=== PATIENT | male | born 1980 | race Caucasian/White ===

== ENCOUNTER 2018-06-14 12:45 | Outpatient (CLI) | payer MEDICAID, SELFPAY ==
[2018-06-14 14:10] LABS: ALT 49 U/L (12-78); AST 30 U/L (15-37); Albumin 4.4 g/dL (3.4-5.0); Alkaline Phosphatase 96 U/L (46-116); Anion Gap 12.9 mmol/L (3-11); BUN 15 mg/dL (7-18); Bilirubin, Total 0.6 mg/dL (0.2-1.0); CO2 27.1 mmol/L (21.0-32.0); CREATININE 0.94 mg/dL (0.70-1.30); Chloride 102 mmol/L (98-107); Cholesterol 277 mg/dL (50-200); Glucose 100 mg/dL (70-100); HDL Cholesterol 37 mg/dL (40-60); LDL CHOLESTEROL 180 mg/dL (<100); Potassium 4.5 mmol/L (3.5-5.1); Sodium 142 mmol/L (136-145); Total Protein 7.7 g/dL (6.4-8.2); Triglyceride 500 mg/dL (30-150)
== END 2018-06-14 13:05 ==
PROVIDERS: PCP Nurse Practitioner; Visit Provider Nurse Practitioner
DX: E78.5 Hyperlipidemia, unspecified (principal)
CPT/HCPCS: 36415; 80053; 80061; 83721

== ENCOUNTER 2018-08-07 09:53 | Outpatient (CLI) | payer MEDICAID, SELFPAY ==
[2018-08-07 11:09] LABS: ALT 70 U/L (12-78); AST 49 U/L (15-37); Albumin 4.6 g/dL (3.4-5.0); Alkaline Phosphatase 118 U/L (46-116); Anion Gap 10.9 mmol/L (3-11); BUN 14 mg/dL (7-18); Bilirubin, Total 1.1 mg/dL (0.2-1.0); CO2 30.1 mmol/L (21.0-32.0); CREATININE 1.11 mg/dL (0.70-1.30); Calcium 9.3 mg/dL (8.5-10.1); Chloride 103 mmol/L (98-107); Cholesterol 158 mg/dL (50-200); Glucose 103 mg/dL (70-100); HDL Cholesterol 35 mg/dL (40-60); LDL CHOLESTEROL 100 mg/dL (<100); Potassium 3.9 mmol/L (3.5-5.1); Sodium 144 mmol/L (136-145); Total Protein 7.5 g/dL (6.4-8.2); Triglyceride 171 mg/dL (30-150)
== END 2018-08-07 10:13 ==
PROVIDERS: PCP Nurse Practitioner; Visit Provider Nurse Practitioner
DX: E78.1 Pure hyperglyceridemia (principal); E78.2 Mixed hyperlipidemia
CPT/HCPCS: 36415; 80053; 80061; 83721

== ENCOUNTER 2018-09-25 06:23 | Day surgery (SDC) | payer MEDICAID, SELFPAY ==
[2018-09-25] VITALS (8 sets, daily range): BP systolic 109–142; BP diastolic 62–86; PULSE 70–86; RESP 14–18; TEMP 36.4–36.9; O2SAT 94–100
[2018-09-25] MEDS: Lactated Ringers 1,000 ML 80 ML IV (06:58)
[2018-09-25] MEDS: Oxymetazolone 0.05% SPRAY 15 ML BTL (07:48)
[2018-09-25] MEDS: HYDROmorphone 2 MG/ML VIAL IVP ×3 (09:29→09:54)
[2018-09-25] MEDS: Lactated Ringers 1,000 ML 75 ML IV (09:33)
--- NOTE | 2018-09-25 10:33 | ROE_ITS ---
REPORT OF OPERATIVE PROCEDURE DATE OF PROCEDURE September 25, 2018 PREOPERATIVE DIAGNOSES Chronic nasal obstruction with nasal septal deviation. Inferior turbinate hypertrophy bilaterally. 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 POSTOPERATIVE DIAGNOSES Chronic nasal obstruction with nasal septal deviation. Inferior turbinate hypertrophy bilaterally. 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 PROCEDURES Nasal septal reconstruction. Bilateral internal nasal valve collapse repair with homograft. Submucosal resection of inferior turbinates bilaterally. SURGEON Kenny Watson D.O. ANESTHESIA General and 14 cc of 1% lidocaine with 1:100,000 epinephrine. ESTIMATED BLOOD LOSS 5 cc COMPLICATIONS None. CONDITION The patient tolerated well. INDICATIONS FOR PROCEDURE This is a pleasant 38-year-old male that presents with a history of chronic nasal obstruction. He has had difficulty breathing through his nose for some time refractory to medical management. He has lesli tomical reasons for his obstruction, including collapse of the internal nasal valve bilateral with in spiration. Nasal septal obstruction, as well as inferior turbinate hypertrophy bilaterally. The decis ion made forth to proceed with intranasal surgery. The risks and complications were discussed in [facility]. Consent was placed in the chart. PROCEDURE The patient was brought back to the Operating Suite in stable condition, placed supine on the operati ng table and intubated in a normal fashion. The table was rotated 90 degrees. Timeout was taken to [facility] operation and procedure. 14 cc of 1% lidocaine with 1:100,000 epinephrine was injected in the s ubmucosal surfaces of septal bilaterally. Afrin-soaked pledgets were placed. The patient was preppe d and draped in normal fashion. A Evan's-type incision was made in the left septal mucosa. There w as a large inferior spur in the left side. This was isolated. Mucosa was elevated in a sub perichondr al flap. Crossover incision through the cartilage was made with a septal knife. Similar sub perichond ral flap was elevated on the right side. Obstructive cartilage was removed and saved. The inferior se ptal spur was meticulously isolated. This was also extracted out of the maxillary crest. The septum w as midline. The septal cartilage was sculpted, bisected and shaved. Intercartilaginous incisions were made in the lateral aspects of the nose bilaterally with a blunt pocket created toward the piriform aperture. The homograph cartilage grafts were placed with the convexity laterally. These were sutured in place with #4-0 Chromic suture. The sub perichondral septal flaps were sutured again back togethe r with #4-0 Plain gut suture. Next, a #15-blade scalpel was used to incise the anterior face of the inferior turbinate. A 2.0-mm in ferior submucosal resection blade was used to remove the obstructive cartilage and soft tissue, follo wed by outfracture from Maria M elevator. Again, Chromic was used to close the stab incisions. James sp lints were placed with Bactroban, sutured to the columella. There were no complications. The patient was table to PACU.
== END 2018-09-25 12:05 | disposition home or self-care (01) ==
PROVIDERS: PCP Nurse Practitioner; Visit Provider Otolaryngology Otolaryngology/Facial Plastic Surgery
PROC: (CPT 30465; principal; 2018-09-25 07:30)
DX: J34.89 Other specified disorders of nose and nasal sinuses (principal); J34.3 Hypertrophy of nasal turbinates; J34.2 Deviated nasal septum
CPT/HCPCS: 30465; 30520; 30140; J1100; J1200; J1885; J2250; J2405; J3010

== ENCOUNTER 2018-10-10 01:26 | Outpatient (CLI) | payer MEDICAID, SELFPAY ==
--- NOTE | 2018-10-10 10:27 | DI.MRI_ITS ---
SYMPTOMS/DIAGNOSIS: WORSENING PAIN, HISTORY LUMBAR DISC HERNIATION MRI OF THE LUMBAR SPINE: Comparison is made with [id number]. T 1, T 2 and STIR sagittal, T 1 coronal and T 1 and T 2 axial sequences were performed. The T 11 - 12 through L 3 - 4 discs appear intact. There is mild concentric bulging of the L 4 - 5 disc. There is a small left foraminal disc herniation which appears to impinge on the nerve root. This is not changed from the previous exam. At L 5 - S 1, there is now a small focal right paracentral disc protrusion. This may contact the right S 1 nerve root. There is no central canal stenosis or neural foraminal narrowing. IMPRESSION: Stable appearance of right foraminal disc herniation at L 4 - 5. New focal right paracentral disc protrusion at L 5 - S 1.
== END 2018-10-10 01:46 ==
PROVIDERS: PCP Nurse Practitioner; Visit Provider Nurse Practitioner
DX: M54.5 Low back pain (principal); M51.27 Other intervertebral disc displacement, lumbosacral region
CPT/HCPCS: 72148

== ENCOUNTER 2018-11-28 11:27 | Emergency (ER) | payer MEDICAID, SELFPAY ==
[2018-11-28 11:32] VITALS: BP 159/87; PULSE 91; RESP 18; TEMP 36.5; O2SAT 97
--- NOTE | 2018-11-28 12:44 | W.ED.GENAD ---
Discharge Plan Disposition Patient Disposition: HOME Condition: Good Discharge Details Chief Complaint: DentalOral Clinical Impression: Dental infection, Lymphadenopathy Primary Care Provider: Lara Sy ED Provider: Ian Pappas Meds and New Rx's Prescriptions: New ibuprofen 600 mg tablet 600 mg PO TID-QID PRN (Reason: pain) Qty: 20 RF: 0 Continued atorvastatin 40 mg tablet 40 mg PO DAILY Qty: 90 RF: 3 escitalopram oxalate 20 mg tablet 20 mg PO DAILY Qty: 30 RF: 12 albuterol sulfate [ProAir HFA] 90 mcg/actuation HFA aerosol inhaler 1 - 2 puff Inhalation Q4H PRN PRN (Reason: shortness of breath or wheezing) Qty: 18 RF: 12 clindamycin HCl 300 mg capsule 300 mg PO TID Qty: 30 RF: 0 acetaminophen-codeine 300-30 mg tablet 1 tab PO TID PRN (Reason: pain) Qty: 9 RF: 0 bupropion HCl 300 mg tablet extended release 24 hr 300 mg PO QAM Qty: 30 RF: 2 budesonide 32 mcg/actuation aerosol THOMAS BID RF: 0 Discharge Instructions Instructions: Dental Abscess (ED) Additional Instructions: Continue the antibiotic as prescribed. Use ibuprofen to help with the inflammation and swelling of the lymph nodes. Follow-up with a dentist tomorrow as planned. Return to ED for high fever, increasing facial swelling, difficulty breathing, inability to swallow. Medical Decision Making Patient with tender submandibular lymph nodes likely related to the infection. There is no abscess. He is on clindamycin and sees the dentist tomorrow. He has no erythema or cellulitis. He was prescribed pain medicine along with the antibiotic. I have instructed him to use ibuprofen for anti-inflammatory effects. Return to ED for fever, increased facial pain/swelling, difficulty breathing, inability to swallow. HPI General Mode of arrival: ambulatory. Date/Time Provider Initiated Documentation: 11/28/18 12:44. Limitations to Documentation: no limitations. Information obtained by: patient. HPI Narrative: Patient presents to ED with swelling under his left mandible area that is painful. He is on antibiotic for dental infection that was started recently. He has had about 5 doses. He has an appointment to see the dentist tomorrow. He has no fever. He has had no generalized facial swelling. He was concerned with this localized painful swelling and came in for evaluation. He is not having difficulty breathing. He is not having difficulty swallowing although it hurts when he initiates swallowing because it makes the firm mass move. Related Data Home Medications Medication Instructions Recorded Confirmed atorvastatin 40 mg tablet 40 mg PO DAILY #90 tab 06/15/18 11/28/18 escitalopram 20 mg tablet 20 mg PO DAILY #30 tab 09/04/18 11/28/18 albuterol sulfate HFA 90 1 - 2 puff INHALATION Q4H PRN PRN 10/17/18 11/28/18 mcg/actuation aerosol inhaler #18 gm budesonide 32 mcg/actuation nasal mcg THOMAS BID 11/17/18 11/27/18 spray,aerosol acetaminophen 300 mg-codeine 30 mg 1 tab PO TID PRN #9 tab 11/27/18 11/28/18 tablet bupropion HCl XL 300 mg 24 hr 300 mg PO QAM #30 tab 11/27/18 11/28/18 tablet, extended release clindamycin HCl 300 mg capsule 300 mg PO TID #30 cap 11/27/18 11/28/18 ibuprofen 600 mg PO TID-QID PRN #20 tab 11/28/18 Previous Rx's Medication Instructions Recorded atorvastatin 40 mg tablet 40 mg PO DAILY #90 tab 06/15/18 escitalopram 20 mg tablet 20 mg PO DAILY #30 tab 09/04/18 albuterol sulfate HFA 90 1 - 2 puff INHALATION Q4H PRN PRN 10/17/18 mcg/actuation aerosol inhaler #18 gm acetaminophen 300 mg-codeine 30 mg 1 tab PO TID PRN #9 tab 11/27/18 tablet bupropion HCl XL 300 mg 24 hr 300 mg PO QAM #30 tab 11/27/18 tablet, extended release clindamycin HCl 300 mg capsule 300 mg PO TID #30 cap 11/27/18 ibuprofen 600 mg PO TID-QID PRN #20 tab 11/28/18 Allergies Allergy/AdvReac Type Severity Reaction Status Date / Time Penicillins Allergy Severe Hives Verified 11/27/18 13:43 Sulfa (Sulfonamide Allergy Mild Hives Verified 11/27/18 13:43 Antibiotics) methadone AdvReac Intermediate urinary Verified 11/27/18 13:43 retention General Stated Complaint: DentalOral OMERO: 4 Review of Systems Constitutional Denies chills, Denies fever(s) and Denies headache(s) ENT Reports dental pain, Denies headache(s), Denies sore throat, Denies throat swelling and Denies tongue swelling Integumentary/Breasts Denies erythema Neurologic Denies headache(s) Allergic/Immunologic Denies throat swelling and Denies tongue swelling [facility] Medical History GARY (generalized anxiety disorder) (Chronic) Major depression (Chronic) Herniation of lumbar intervertebral disc with radiculopathy (Acute) Asthma (Chronic) Hyperlipidemia, unspecified (Chronic 09/03/15) Surgical History Fx left forearm, staph, grafting (~2007) Social History Smoking/Tobacco Use Status: Never Alcohol Intake: never Drug use: Occasionally Substance use type: does not use Adopted: No Household members: family Housing: house Number of Children: 1 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: male What type of physical activity do you participate in: walking Duration: 15-30 minutes/day Frequency: 3-4 times per week Seatbelt use: always Helmet use: Yes Drive intox or ride w/intox commercial front load driver: No Water heater temp set <120 deg: Yes Working smoke detector in home: Yes Fire extinguisher in home: Yes Carbon monox detector in home: Yes Firearms in home: No Do you feel safe at home: Yes Do you feel safe in your relationship?: Yes Exam Const General: cooperative, comfortable and no acute distress Orientation: alert and oriented x3 HENMT Head: normal to inspection, normocephalic and atraumatic Face and sinus: no erythema, no fluctuance and tenderness on the left submandibular (pea size firm tender nodule) Mouth: tongue normal, no drooling, no trismus and other (No gingival or mucosal abscess) Teeth and gingiva: caries (Left lower posterior molar with severe dental christie with tenderness) and poor dentition Neck Neck: normal visual inspection, full ROM and lymphadenopathy (left submandibular) Course Vital Signs Temperature 97.7 F 11/28/18 11:32 Pulse 91 H 11/28/18 11:32 Respiratory Rate 18 11/28/18 11:32 Blood Pressure 159/87 H 11/28/18 11:32 Pulse Oximetry 97 11/28/18 11:32 Temperature 97.7 F 11/28/18 11:32 Temperature Source Temporal Artery Scan 11/28/18 11:32 Pulse 91 H 11/28/18 11:32 Respiratory Rate 18 11/28/18 11:32 Blood Pressure 159/87 H 11/28/18 11:32 Pulse Oximetry 97 11/28/18 11:32 Oxygen Delivery Method Room Air 11/28/18 11:32 Oxygen Flow Rate 0 11/28/18 11:32 Pain Level 8 11/28/18 11:32 Comment 11/28/18 11:32
--- NOTE | 2018-11-28 12:47 | ED.GENADUL_ITS ---
Discharge Plan Disposition Patient Disposition: HOME Condition: Good Discharge Details Chief Complaint: DentalOral Clinical Impression: Dental infection, Lymphadenopathy Primary Care Provider: Lara Sy ED Provider: Ian Pappas Meds and New Rx's Prescriptions: New ibuprofen 600 mg tablet 600 mg PO TID-QID PRN (Reason: pain) Qty: 20 RF: 0 Continued atorvastatin 40 mg tablet 40 mg PO DAILY Qty: 90 RF: 3 escitalopram oxalate 20 mg tablet 20 mg PO DAILY Qty: 30 RF: 12 albuterol sulfate [ProAir HFA] 90 mcg/actuation HFA aerosol inhaler 1 - 2 puff Inhalation Q4H PRN PRN (Reason: shortness of breath or wheezing) Qty: 18 RF: 12 clindamycin HCl 300 mg capsule 300 mg PO TID Qty: 30 RF: 0 acetaminophen-codeine 300-30 mg tablet 1 tab PO TID PRN (Reason: pain) Qty: 9 RF: 0 bupropion HCl 300 mg tablet extended release 24 hr 300 mg PO QAM Qty: 30 RF: 2 budesonide 32 mcg/actuation aerosol THOMAS BID RF: 0 Discharge Instructions Instructions: Dental Abscess (ED) Additional Instructions: Continue the antibiotic as prescribed. Use ibuprofen to help with the i nflammation and swelling of the lymph nodes. Follow-up with a dentist tomorrow as planned. Return to ED for high fever, increasing facial swelling, difficulty breathing, inability to swallow. Medical Decision Making Patient with tender submandibular lymph nodes likely related to the infection. There is no abscess. He is on clindamycin and sees the dentist tomorrow. He has no erythema or cellulitis. He was prescribed pain medicine along with the antibiotic. I have instructed him to use ibuprofen for anti-inflammatory effects. Return to ED for fever, increased facial pain/swelling, difficulty breathing, inability to swallow. HPI General Mode of arrival: ambulatory . Date/Time Provider Initiated Documentation: 11/28/18 12:44 . Limitations to Documentation: no limitations . Information obtained by: patient . HPI Narrative: Patient presents to ED with swelling under his left mandible area that is painful. He is on antibiotic for dental infection that was started recently. He has had about 5 doses. He has an appointment to see the dentist tomorrow. He has no fever. He has had no generalized facial swelling. He was concerned with this localized painful swelling and came in for evaluation. He is not having difficulty breathing. He is not having difficulty swallowing although it hurts when he initiates swall owing because it makes the firm mass move. Related Data Home Medications Medication Instructions Recorded Confirmed atorvastatin 40 mg tablet 40 mg PO DAILY #90 tab 06/15/18 11/28/18 escitalopram 20 mg tablet 20 mg PO DAILY #30 tab 09/04/18 11/28/18 albuterol sulfate HFA 90 1 - 2 puff INHALATION Q4H PRN PRN 10/17/18 11/28/18 mcg/actuation aerosol inhaler #18 gm budesonide 32 mcg/actuation nasal mcg THOMAS BID 11/17/18 11/27/18 spray,aerosol acetaminophen 300 mg-codeine 30 mg 1 tab PO TID PRN #9 tab 11/27/18 11/28/18 tablet bupropion HCl XL 300 mg 24 hr 300 mg PO QAM #30 tab 11/27/18 11/28/18 tablet, extended release clindamycin HCl 300 mg capsule 300 mg PO TID #30 cap 11/27/18 11/28/18 ibuprofen 600 mg PO TID-QID PRN #20 tab 11/28/18 Previous Rx's Medication Instructions Recorded atorvastatin 40 mg tablet 40 mg PO DAILY #90 tab 06/15/18 escitalopram 20 mg tablet 20 mg PO DAILY #30 tab 09/04/18 albuterol sulfate HFA 90 1 - 2 puff INHALATION Q4H PRN PRN 10/17/18 mcg/actuation aerosol inhaler #18 gm acetaminophen 300 mg-codeine 30 mg 1 tab PO TID PRN #9 tab 11/27/18 tablet bupropion HCl XL 300 mg 24 hr 300 mg PO QAM #30 tab 11/27/18 tablet, extended release clindamycin HCl 300 mg capsule 300 mg PO TID #30 cap 11/27/18 ibuprofen 600 mg PO TID-QID PRN #20 tab 11/28/18 Allergies Allergy/AdvReac Type Severity Reaction Status Date / Time Penicillins Allergy Severe Hives Verified 11/27/18 13:43 Sulfa (Sulfonamide Allergy Mild Hives Verified 11/27/18 13:43 Antibiotics) methadone AdvReac Intermediate urinary Verified 11/27/18 13:43 retention General Stated Complaint: DentalOral OMERO: 4 Review of Systems Constitutional Denies chills, Denies fever(s) and Denies headache(s) ENT Reports dental pain, Denies headache(s), Denies sore throat, Denies throat swelling and Denies tongue swelling Integumentary/Breasts Denies erythema Neurologic Denies headache(s) Allergic/Immunologic Denies throat swelling and Denies tongue swelling PFSH Medical History GARY (generalized anxiety disorder) (Chronic) Major depression (Chronic) Herniation of lumbar intervertebral disc with radiculopathy (Acute) Asthma (Chronic) Hyperlipidemia, unspecified (Chronic 09/03/15) Surgical History Fx left forearm, staph, grafting (~2007) Social History Smoking/Tobacco Use Status: Never Alcohol Intake: never Drug use: Occasionally Substance use type: does not use Adopted: No Household members: family Housing: house Number of Children: 1 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: male What type of physical activity do you participate in: walking Duration: 15-30 minutes/day Frequency: 3-4 times per week Seatbelt use: always Helmet use: Yes Drive intox or ride w/intox cdl b driver: No Water heater temp set <120 deg: Yes Working smoke detector in home: Yes Fire extinguisher in home: Yes Carbon monox detector in home: Yes Firearms in home: No Do you feel safe at home: Yes Do you feel safe in your relationship?: Yes Exam Const General: cooperative, comfortable and no acute distress Orientation: alert and oriented x3 HENMT Head: normal to inspection, normocephalic and atraumatic Face and sinus: no erythema, no fluctuance and tenderness on the left subma ndibular (pea size firm tender nodule) Mouth: tongue normal, no drooling, no trismus and other (No gingival or mucosal abscess) Teeth and gingiva: caries (Left lower posterior molar with severe dental christie with tenderness) and poor dentition Neck Neck: normal visual inspection, full ROM and lymphadenopathy (left submandibular) Course Vital Signs Temperature 97.7 F 11/28/18 11:32 Pulse 91 H 11/28/18 11:32 Respiratory Rate 18 11/28/18 11:32 Blood Pressure 159/87 H 11/28/18 11:32 Pulse Oximetry 97 11/28/18 11:32 Temperature 97.7 F 11/28/18 11:32 Temperature Source Temporal Artery Scan 11/28/18 11:32 Pulse 91 H 11/28/18 11:32 Respiratory Rate 18 11/28/18 11:32 Blood Pressure 159/87 H 11/28/18 11:32 Pulse Oximetry 97 11/28/18 11:32 Oxygen Delivery Method Room Air 11/28/18 11:32 Oxygen Flow Rate 0 11/28/18 11:32 Pain Level 8 11/28/18 11:32 Comment 11/28/18 11:32
[2018-11-28] MEDS: Ibuprofen 600 MG TAB PO (13:00)
== END 2018-11-28 13:03 | disposition home or self-care (01) ==
PROVIDERS: Emergency Provider Emergency Medicine; PCP Nurse Practitioner
DX: K04.7 Periapical abscess without sinus (principal); L04.9 Acute lymphadenitis, unspecified
CPT/HCPCS: 99282

== ENCOUNTER 2018-11-28 17:26 | Emergency (ER) | payer MEDICAID, SELFPAY ==
[2018-11-28 17:34] VITALS: BP 163/84; PULSE 90; RESP 20; TEMP 36.9; O2SAT 96
--- NOTE | 2018-11-28 23:18 | ED.GENADUL_ITS ---
Discharge Plan Disposition Patient Disposition: HOME Condition: Stable Discharge Details Chief Complaint: DentalOral Clinical Impression: Dental infection Primary Care Provider: Lara Sy ED Provider: Cristhian Godwin Home Meds and New Rx's Prescriptions: No Action atorvastatin 40 mg tablet 40 mg PO DAILY Qty: 90 RF: 3 escitalopram oxalate 20 mg tablet 20 mg PO DAILY Qty: 30 RF: 12 albuterol sulfate [ProAir HFA] 90 mcg/actuation HFA aerosol inhaler 1 - 2 puff Inhalation Q4H PRN PRN (Reason: shortness of breath or wheezing) Qty: 18 RF: 12 clindamycin HCl 300 mg capsule 300 mg PO TID Qty: 30 RF: 0 acetaminophen-codeine 300-30 mg tablet 1 tab PO TID PRN (Reason: pain) Qty: 9 RF: 0 bupropion HCl 300 mg tablet extended release 24 hr 300 mg PO QAM Qty: 30 RF: 2 budesonide 32 mcg/actuation aerosol THOMAS BID RF: 0 ibuprofen 600 mg tablet 600 mg PO TID-QID PRN (Reason: pain) Qty: 20 RF: 0 Discharge Instructions Instructions: Dental Abscess (ED) Additional Instructions: 1. Drink plenty of fluids. 2. Continue all medications as prescribed. 3. Ibuprofen 600mg every 6 hours and or acetaminophen 1000mg every 4 hours as needed for pain/fever. 4. Follow up w your dentist as scheduled tomorrow morning. . Return for worsening pain, fever, inabiility to swallow, difficulty breathing. Medical Decision Making 38-year-old gentleman with history of dental caries and progressive left posterior molar pain. Currently on clindamycin and scheduled for outpatient dental follow-up tomorrow morning. Presents with worsening pain and swelling in the submandibular region. Exam and bedside ultrasound diagnostic for left submandibular gland swelling. Discussed findings with patient and recommended continued antibiotics, OTC analgesia, and dental clinic follow-up as scheduled. Pt evaluated immediately prior to discharge with improved symptoms, normal vital signs, and tolerating PO. The patient feels appropriate for discharge home. Discussed clinical/diagnostic findings. Discharged with a clear plan for outpatient follow up. Given usual and customary return instructions prior to discharge. Medical Records Medical records reviewed: Yes I reviewed the patient's medical records. Imaging Data Radiologic Study: Imaging: Ultrasound (Bedside soft tissue ultrasound) My impression: Limited soft tissue bedside Ultrasound. Findings include left submandibular gland hyperplasia.. Images obtained, reviewed, and interpreted independently by myself. Images saved on ultrasound system for review. HPI 38-year-old gent with past medical history which includes chronic anxiety/depression back pain, hyperlipidemia, asthma. Has generalized poor dentition and recently was started on antibiotics for a painful posterior left lower molar. Evaluated here earlier and discharged with plan for outpatient dental follow-up scheduled for tomorrow. Return with worsening submandibular pain and swelling since his discharge. Notes increased pain in the submandibular region with jaw motion and swallowing. However denies significant difficulty swallowing or handling his own secretions. Denies hypopharyngeal or buccal swelling. Has no dyspnea, wheezing, or stridor. He has been compliant with his antibiotics and OTC analgesia. General Date/Time Provider Initiated Documentation: 11/28/18 19:27 . Related Data Home Medications Medication Instructions Recorded Confirmed atorvastatin 40 mg tablet 40 mg PO DAILY #90 tab 06/15/18 11/28/18 escitalopram 20 mg tablet 20 mg PO DAILY #30 tab 09/04/18 11/28/18 albuterol sulfate HFA 90 1 - 2 puff INHALATION Q4H PRN PRN 10/17/18 11/28/18 mcg/actuation aerosol inhaler #18 gm budesonide 32 mcg/actuation nasal mcg THOMAS BID 11/17/18 11/27/18 spray,aerosol acetaminophen 300 mg-codeine 30 mg 1 tab PO TID PRN #9 tab 11/27/18 11/28/18 tablet bupropion HCl XL 300 mg 24 hr 300 mg PO QAM #30 tab 11/27/18 11/28/18 tablet, extended release clindamycin HCl 300 mg capsule 300 mg PO TID #30 cap 11/27/18 11/28/18 ibuprofen 600 mg PO TID-QID PRN #20 tab 11/28/18 Previous Rx's Medication Instructions Recorded atorvastatin 40 mg tablet 40 mg PO DAILY #90 tab 06/15/18 escitalopram 20 mg tablet 20 mg PO DAILY #30 tab 09/04/18 albuterol sulfate HFA 90 1 - 2 puff INHALATION Q4H PRN PRN 10/17/18 mcg/actuation aerosol inhaler #18 gm acetaminophen 300 mg-codeine 30 mg 1 tab PO TID PRN #9 tab 11/27/18 tablet bupropion HCl XL 300 mg 24 hr 300 mg PO QAM #30 tab 11/27/18 tablet, extended release clindamycin HCl 300 mg capsule 300 mg PO TID #30 cap 11/27/18 ibuprofen 600 mg PO TID-QID PRN #20 tab 11/28/18 Allergies Allergy/AdvReac Type Severity Reaction Status Date / Time Penicillins Allergy Severe Hives Verified 11/27/18 13:43 Sulfa (Sulfonamide Allergy Mild Hives Verified 11/27/18 13:43 Antibiotics) methadone AdvReac Intermediate urinary Verified 11/27/18 13:43 retention General Stated Complaint: DentalOral OMERO: 4 Review of Systems Review of Systems All systems reviewed & are unremarkable except as noted in HPI and below Constitutional Denies headache(s) ENT Denies bleeding gums, Denies change in voice, Reports dental pain, Denies headache(s), Denies hoarseness, Reports mouth pain (Left lower posterior molar and adjacent soft tissue) and Denies throat swelling Cardiovascular Denies dyspnea Respiratory Denies cough, Denies dyspnea, Denies stridor and Denies wheezing Neurologic Denies headache(s) Hematologic/Lymphatic Reports lymphadenopathy Comments: Left submandibular Allergic/Immunologic Denies throat swelling and Denies wheezing PFSH Medical History GARY (generalized anxiety disorder) (Chronic) Major depression (Chronic) Herniation of lumbar intervertebral disc with radiculopathy (Acute) Asthma (Chronic) Hyperlipidemia, unspecified (Chronic 09/03/15) Surgical History Fx left forearm, staph, grafting (~2007) Family History Mother Essential hypertension Hyperlipidemia COPD (chronic obstructive pulmonary disease) Depression Father Diabetes Essential hypertension Heart disease Hyperlipidemia Alcohol abuse Grandfather Heart disease Grandfather Personal history of malignant neoplasm Heart disease Social History Smoking/Tobacco Use Status: Never Alcohol Intake: never Drug use: Occasionally Substance use type: does not use Adopted: No Household members: family Housing: house Number of Children: 1 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 GENERAL: alert, active, no acute distress, well -hydrated, well-nourished HEENT: atraumatic/normocephalic, PERRLA, EOMI, conjunctiva clear, external ears/canals normal, nasal mucosa normal; uvula midline, hypopharynx with no significant soft tissue swelling. Left posterior lower molar with dental caries and tenderness to tap. No surrounding gingival erythema, edema, or fluctuance. Soft tissue swelling and tenderness in the left submandibular region consistent with glandular hyperplasia. NECK: supple, full range of motion CARDIOVASCULAR: nl pulses, no edema PULMONARY: nl effort, no audible wheezing or stridor ABDOMEN: non-distended EXTREMITY: normal muscle tone, all joints with FROM, no deformity NUERO: normal mentation, moving all extremities, normal stance and gait, PSYCH: alert and oriented SKIN: no new rashes or lesions Course Vital Signs Temperature 98.4 F 11/28/18 17:34 Pulse 90 11/28/18 17:34 Respiratory Rate 20 11/28/18 17:34 Blood Pressure 163/84 H 11/28/18 17:34 Pulse Oximetry 96 11/28/18 17:34 Temperature 98.4 F 11/28/18 17:34 Temperature Source Temporal Artery Scan 11/28/18 17:34 Pulse 90 11/28/18 17:34 Respiratory Rate 20 11/28/18 17:34 Respiratory Effort Non-Labored 11/28/18 17:34 Blood Pressure 163/84 H 11/28/18 17:34 Pulse Oximetry 96 11/28/18 17:34 Oxygen Delivery Method Room Air 11/28/18 17:34 Oxygen Flow Rate 0 11/28/18 17:34 Pain Level 10 11/28/18 17:34
== END 2018-11-28 20:00 | disposition home or self-care (01) ==
PROVIDERS: Emergency Provider Emergency Medicine; PCP Nurse Practitioner
DX: K04.7 Periapical abscess without sinus (principal)
CPT/HCPCS: 99282

== ENCOUNTER 2018-11-29 10:29 | Emergency (ER) | payer MEDICAID, SELFPAY ==
[2018-11-29 10:32] VITALS: BP 154/85; PULSE 84; RESP 14; TEMP 37.1; O2SAT 98
--- NOTE | 2018-11-29 10:40 | DI.CT_ITS ---
SYMPTOMS/DIAGNOSIS: LT SUBMANDIBULAR SWELLING CT OF THE NECK: A post contrast exam was performed. There is a cavity in the left mandibular third molar tooth. There is a very small lucency in the adjacent mandible. There is a small abscess of the buccal surface, measuring approximately 4 x 4 x 10 mm. There is soft tissue swelling beneath the left side of the mandible but no drainable abscess. There is some swelling of the submandibular gland. The parotid gland as well as thyroid are are unremarkable. The visualized portions of the lungs appear clear. There are mild degenerative changes in the cervical spine. The orbits, sinuses and mastoid air cells are unremarkable. No gross abnormality is seen in the visualized portions of the brain. IMPRESSION: Dental abscess at the buccal surface between the second and third left mandibular molar teeth. Soft tissue swelling in the left submandibular region without evidence of abscess.
--- NOTE | 2018-11-29 10:43 | ED.GENADUL_ITS ---
Discharge Plan Disposition Patient Disposition: HOME Condition: Stable Discharge Details Chief Complaint: DentalOral Clinical Impression: Abscess, dental Primary Care Provider: Lara Sy ED Provider: Alvaro Almanza Home Meds and New Rx's Prescriptions: No Action atorvastatin 40 mg tablet 40 mg PO DAILY Qty: 90 RF: 3 escitalopram oxalate 20 mg tablet 20 mg PO DAILY Qty: 30 RF: 12 albuterol sulfate [ProAir HFA] 90 mcg/actuation HFA aerosol inhaler 1 - 2 puff Inhalation Q4H PRN PRN (Reason: shortness of breath or wheezing) Qty: 18 RF: 12 clindamycin HCl 300 mg capsule 300 mg PO TID Qty: 30 RF: 0 acetaminophen-codeine 300-30 mg tablet 1 tab PO TID PRN (Reason: pain) Qty: 9 RF: 0 bupropion HCl 300 mg tablet extended release 24 hr 300 mg PO QAM Qty: 30 RF: 2 budesonide 32 mcg/actuation aerosol 32 mcg THOMAS BID RF: 0 ibuprofen 600 mg tablet 600 mg PO TID-QID PRN (Reason: pain) Qty: 20 RF: 0 Discharge Instructions Additional Instructions: your cat scan did not show any emergent findings, you do have a small dental absecss follow up with your dentist as scheduled continue your clindamycin if you have difficulty breathing or inability to swallow liquids return to the emergency department Medical Decision Making 38 yo male who has been on clindamycin since Tuesday for left lower molar infection/abscess, who saw dentist today and was told he needs IV antibiotics and was sent here. He has mild swelling of the left submandibular swelling, midline uvula and tolerating po. I doubt that he requires IV abx given he has only had 2 days of abx. Will obtain imaging to confirm if he has more worrisome deep abscess labs unremarkable, ct per dr. robert shows no deep abscess, has small abscess near the molar. I spoke with the pt's dentist at [place] and he states he did not instruct the pt to come here for IV abx only if things worsen. Pt remains stable. Given no significant change on exam and reassuring ct will d/c home with continued oral abx and f/u with dentist Differential Diagnosis izabella's dental abscess Medical Records Medical records reviewed: Yes I reviewed the patient's medical records. Imaging Data Radiologic Study: Attestation: I personally reviewed and interpreted this imaging study as follows: Imaging: CT Scan Radiologist's impression: per dr. robert small abscess near the molar tooth on the left Lab Data Lab results reviewed: Yes I reviewed the patient's lab results. HPI General Mode of arrival: ambulatory . Date/Time Provider Initiated Documentation: 11/29/18 10:33 . Limitations to Documentation: no limitations . Information obtained by: patient . History of Present Illness 38 year old M presents to the emergency department with the chief complaint of left sided submandibular pain/swelling, described as moderate, and is localized to the face and mouth. Patient reports no radiation. Patient started experiencing this day(s) (2) No relieving factors improve symptom(s), No exacerbating factors reported . Patient notes no other symptoms.. Patient did receive the following treatments prior to arrival, NSAID Related Data Home Medications Medication Instructions Recorded Confirmed atorvastatin 40 mg tablet 40 mg PO DAILY #90 tab 06/15/18 11/29/18 escitalopram 20 mg tablet 20 mg PO DAILY #30 tab 09/04/18 11/29/18 albuterol sulfate HFA 90 1 - 2 puff INHALATION Q4H PRN PRN 10/17/18 11/29/18 mcg/actuation aerosol inhaler #18 gm budesonide 32 mcg/actuation nasal 32 mcg THOMAS BID 11/17/18 11/29/18 spray,aerosol acetaminophen 300 mg-codeine 30 mg 1 tab PO TID PRN #9 tab 11/27/18 11/29/18 tablet bupropion HCl XL 300 mg 24 hr 300 mg PO QAM #30 tab 11/27/18 11/29/18 tablet, extended release clindamycin HCl 300 mg capsule 300 mg PO TID #30 cap 11/27/18 11/29/18 ibuprofen 600 mg PO TID-QID PRN #20 tab 11/28/18 11/29/18 Previous Rx's Medication Instructions Recorded atorvastatin 40 mg tablet 40 mg PO DAILY #90 tab 06/15/18 escitalopram 20 mg tablet 20 mg PO DAILY #30 tab 09/04/18 albuterol sulfate HFA 90 1 - 2 puff INHALATION Q4H PRN PRN 10/17/18 mcg/actuation aerosol inhaler #18 gm acetaminophen 300 mg-codeine 30 mg 1 tab PO TID PRN #9 tab 11/27/18 tablet bupropion HCl XL 300 mg 24 hr 300 mg PO QAM #30 tab 11/27/18 tablet, extended release clindamycin HCl 300 mg capsule 300 mg PO TID #30 cap 11/27/18 ibuprofen 600 mg PO TID-QID PRN #20 tab 11/28/18 Allergies Allergy/AdvReac Type Severity Reaction Status Date / Time Penicillins Allergy Severe Hives Verified 11/29/18 10:36 Sulfa (Sulfonamide Allergy Mild Hives Verified 11/29/18 10:36 Antibiotics) methadone AdvReac Intermediate urinary Verified 11/29/18 10:36 retention General Stated Complaint: DentalOral OMERO: 3 Review of Systems Review of Systems All systems reviewed & are unremarkable except as noted in HPI and below Constitutional Denies chills, Denies fever(s) and Denies weakness Cardiovascular Denies chest pain and Denies dyspnea Respiratory Denies cough and Denies dyspnea Gastrointestinal Denies abdominal pain, Denies nausea and Denies vomiting Neurologic Denies weakness [facility] Medical History GARY (generalized anxiety disorder) (Chronic) Major depression (Chronic) Herniation of lumbar intervertebral disc with radiculopathy (Acute) Asthma (Chronic) Hyperlipidemia, unspecified (Chronic 09/03/15) Family History Mother Essential hypertension Hyperlipidemia COPD (chronic obstructive pulmonary disease) Depression Father Diabetes Essential hypertension Heart disease Hyperlipidemia Alcohol abuse Grandfather Heart disease Grandfather Personal history of malignant neoplasm Heart disease Social History Smoking/Tobacco Use Status: Never Alcohol Intake: never Drug use: Occasionally Substance use type: does not use Adopted: No Household members: family Housing: house Number of Children: 1 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: male What type of physical activity do you participate in: walking Duration: 15-30 minutes/day Frequency: 3-4 times per week Seatbelt use: always Helmet use: Yes Drive 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 ride 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 Water heater temp set <120 deg: Yes Working smoke detector in home: Yes Fire extinguisher in home: Yes Carbon monox detector in home: Yes Firearms in home: No Do you feel safe at home: Yes Do you feel safe in your relationship?: Yes Exam Const General: no acute distress Orientation: alert HENMT Head: normal to inspection Ears: external ears normal General nose exam: external nose normal Mouth: moist mucous membranes Eyes General: appearance normal, both eyes and all related structures Neck Neck: normal visual inspection Resp Effort & Inspection: normal respiratory effort and able to speak in complete sentences Cardio Rate: regular rate Skin General skin exam: no rashes or lesions noted Neuro General: alert and oriented x3 Extrem General: normal to inspection Psych Mental Status: mental status grossly normal Course Vital Signs Temperature 37.1 C 11/29/18 10:32 Pulse 84 11/29/18 10:32 Respiratory Rate 14 11/29/18 10:32 Blood Pressure 154/85 H 11/29/18 10:32 Pulse Oximetry 98 11/29/18 10:32 Temperature 37.1 C 11/29/18 10:32 Temperature Source Skin 11/29/18 10:32 Pulse 84 11/29/18 10:32 Respiratory Rate 14 11/29/18 10:32 Blood Pressure 154/85 H 11/29/18 10:32 Blood Pressure Position Sitting 11/29/18 10:32 Pulse Oximetry 98 11/29/18 10:32 Oxygen Delivery Method Room Air 11/29/18 10:32 Oxygen Flow Rate 0 11/29/18 10:32 Pain Level 9 11/29/18 10:32
[2018-11-29] MEDS: Normal Saline Flush 10 ML SYR IVP (10:45)
[2018-11-29 10:54] LABS: Abs Immature Grans 0.02 k/cumm (0.0-0.09); Absolute Basophil Count 0.04 k/cumm (0.0-0.2); Absolute Eosinophil Count 0.04 k/cumm (0.0-0.7); Absolute Monocyte Count 0.91 k/cumm (0.11-0.7); Basophils % 0.4; Eosinophils % 0.4; HCT 39.4 % (40.0-50.0); HGB 13.7 g/dL (13.5-17.5); Immature Grans % 0.2; Lymphocytes % 14.4; Mean Corp. HGB Concentration 34.8 g/dL (32.0-36.0); Mean Corpuscular Hemoglobin 31.1 pg (27.0-33.0); Mean Corpuscular Volume 89.3 fL (80-95); Mean Platelet Volume 9.3 fL (8.0-11.0); Monocytes % 8.3; Neutrophils % 76.3; Platelet Count 235 x1000/uL (130-400); RBC 4.41 m/cumm (4.50-6.00); RBC Distribution Width 12.3 % (11.8-14.1); White Blood Cell Count 10.94 k/cumm (4.4-10.8)
[2018-11-29 10:55] LABS: Absolute Lymphocyte Count 1.58 k/cumm (1.2-3.4); Absolute Neutrophil Count 8.35 k/cumm (1.2-6.7)
[2018-11-29 11:13] LABS: ALT 26 U/L (12-78); AST 18 U/L (15-37); Albumin 4.6 g/dL (3.4-5.0); Alkaline Phosphatase 152 U/L (46-116); Anion Gap 10.8 mmol/L (3-11); BUN 10 mg/dL (7-18); Bilirubin, Total 0.9 mg/dL (0.2-1.0); CO2 29.2 mmol/L (21.0-32.0); CREATININE 1.05 mg/dL (0.70-1.30); Calcium 9.5 mg/dL (8.5-10.1); Chloride 101 mmol/L (98-107); Glucose 94 mg/dL (70-100); Potassium 3.1 mmol/L (3.5-5.1); Sodium 141 mmol/L (136-145); Total Protein 8.2 g/dL (6.4-8.2)
[2018-11-29] MEDS: Omnipaque 350 MG/ML 100 ML BTL IJ (11:46)
[2018-11-29 12:48] VITALS: BP 154/85; PULSE 84; RESP 14; TEMP 37.1; O2SAT 98
== END 2018-11-29 12:50 | disposition home or self-care (01) ==
PROVIDERS: Emergency Provider Emergency Medicine; PCP Nurse Practitioner
DX: K04.7 Periapical abscess without sinus (principal); R22.0 Localized swelling, mass and lump, head
CPT/HCPCS: 36415; 70491; 80053; 99285; 85025; 99284; J3490

== ENCOUNTER 2018-12-25 09:57 | Outpatient (CLI) | payer MEDICAID, SELFPAY ==
[2018-12-25 13:17] LABS: ALT 114 U/L (12-78); AST 51 U/L (15-37); Albumin 4.6 g/dL (3.4-5.0); Alkaline Phosphatase 120 U/L (46-116); Anion Gap 8.6 mmol/L (3-11); BUN 10 mg/dL (7-18); Bilirubin, Total 0.5 mg/dL (0.2-1.0); CO2 30.4 mmol/L (21.0-32.0); CREATININE 0.82 mg/dL (0.70-1.30); Calcium 9.5 mg/dL (8.5-10.1); Chloride 102 mmol/L (98-107); Glucose 97 mg/dL (70-100); Potassium 5.1 mmol/L (3.5-5.1); Sodium 141 mmol/L (136-145); TSH (W/Ref FT4) 0.67 uIU/mL (0.358-3.74); Total Protein 7.7 g/dL (6.4-8.2)
== END 2018-12-25 10:17 ==
PROVIDERS: PCP Nurse Practitioner; Visit Provider Nurse Practitioner
DX: I10 Essential (primary) hypertension (principal); R53.83 Other fatigue; R79.9 Abnormal finding of blood chemistry, unspecified
CPT/HCPCS: 80053; 84443

== ENCOUNTER 2019-01-10 10:27 | Outpatient (CLI) | payer MEDICAID, SELFPAY ==
[2019-01-10 11:40] LABS: ALT 51 U/L (12-78); AST 20 U/L (15-37); Albumin 4.5 g/dL (3.4-5.0); Alkaline Phosphatase 99 U/L (46-116); Bilirubin, Total 0.4 mg/dL (0.2-1.0); Total Protein 7.7 g/dL (6.4-8.2)
== END 2019-01-10 10:47 ==
PROVIDERS: PCP Nurse Practitioner; Visit Provider Nurse Practitioner
DX: R94.5 Abnormal results of liver function studies (principal)
CPT/HCPCS: 36415; 80076

== ENCOUNTER 2019-09-19 09:40 | Outpatient (CLI) | payer MEDICAID, SELFPAY ==
[2019-09-19 10:53] LABS: Calculated LDL 89 mg/dL; Cholesterol 171 mg/dL (<200); HDL Cholesterol 37 mg/dL (40-60); Triglyceride 228 mg/dL (<150)
== END 2019-09-19 10:00 ==
PROVIDERS: PCP Nurse Practitioner; Visit Provider Nurse Practitioner
DX: E78.5 Hyperlipidemia, unspecified (principal)
CPT/HCPCS: 36415; 80061

== ENCOUNTER 2020-08-28 06:54 | Emergency (ER) | payer MEDICAID, SELFPAY ==
[2020-08-28 07:02] VITALS: BP 139/88; PULSE 88; RESP 16; TEMP 36.5; O2SAT 100
--- NOTE | 2020-08-28 07:07 | W.ED.GENAD ---
Discharge Plan Disposition Patient Disposition: HOME Condition: Good Discharge Details Clinical Impression: Foreign body of external eye, right Primary Care Provider: Lara Sy ED Provider: Darrell Sanchez Home Meds and New Rx's Prescriptions: Continued atorvastatin 20 mg tablet 20 mg PO QHS Qty: 90 RF: 3 budesonide 32 mcg/actuation aerosol 32 mcg THOMAS BID RF: 0 albuterol sulfate [ProAir HFA] 90 mcg/actuation HFA aerosol inhaler 1 - 2 puff Inhalation Q4H PRN PRN (Reason: shortness of breath or wheezing) Qty: 18 RF: 12 Discharge Instructions Instructions: Corneal Abrasion (ED) Additional Instructions: At this time the small speck of dirt was removed from your eye. It does not appear to have caused a significant abrasion. If you do notice any irritation or pain please use the erythromycin ointment and a thin strip as directed twice per day. If you notice any worsening of your symptoms, or any new symptoms such as vomiting, diarrhea, fever, chills, shortness of breath, chest pain, numbness, weakness, or fainting , please return immediately to the emergency department for reevaluation. Please follow up with your primary care provider as soon as possible for reassessment and reevaluation. As always, it was a pleasure participating in your medical care today. Referrals: Lara Sy, [employer] [Primary Care Provider] - Medical Decision Making 40-year-old male presents today for evaluation of foreign body in the right eye. When he woke up this morning and noticed a small black foreign body in the front of his eye and had a symptom mild irritation in it. He denies any work with jimbo metal objects recently. He is uncertain as to when it got into his eye. Aside for the mild irritation he denies any vision changes or any other complaints at this time. No other modifying factors. Tetanus was updated in 2014. A small black foreign body was noted over the anterior aspect of the right eye, it was removed without difficulty using a Q-tip. No evidence of abrasion or corneal abrasion. Eversion of the upper and lower lid shows no evidence of other foreign body. No complications. Patient tolerated well. Patient discharged home with erythromycin as needed. I have extensively reviewed the treatment plan and discharge instructions with the patient. I have addressed all patient concerns at this time. The patient was made aware of what symptoms to monitor for that would warrant a return to the emergency department. Discussed the plan with the patient, they demonstrate verbal understanding and agreement with our assessment and plan at this time. HPI General Date/Time Provider Initiated Documentation: 08/28/20 06:56. HPI Narrative: 40-year-old male presents today for evaluation of foreign body in the right eye. When he woke up this morning and noticed a small black foreign body in the front of his eye and had a symptom mild irritation in it. He denies any work with jimbo metal objects recently. He is uncertain as to when it got into his eye. Aside for the mild irritation he denies any vision changes or any other complaints at this time. No other modifying factors. Tetanus was updated in 2014. Related Data Home Medications Medication Instructions Recorded Confirmed budesonide 32 mcg/actuation nasal 32 mcg THOMAS BID 11/17/18 08/28/20 spray,aerosol albuterol sulfate 90 mcg/actuation 1 - 2 puff INHALATION Q4H PRN PRN 01/07/20 08/28/20 aerosol inhaler #18 gm atorvastatin 20 mg tablet 20 mg PO QHS #90 tab 01/29/20 08/28/20 Previous Rx's Medication Instructions Recorded albuterol sulfate 90 mcg/actuation 1 - 2 puff INHALATION Q4H PRN PRN 01/07/20 aerosol inhaler #18 gm atorvastatin 20 mg tablet 20 mg PO QHS #90 tab 01/29/20 Allergies Allergy/AdvReac Type Severity Reaction Status Date / Time Penicillins Allergy Severe Hives Verified 08/28/20 07:07 Sulfa (Sulfonamide Allergy Mild Hives Verified 08/28/20 07:07 Antibiotics) methadone AdvReac Intermediate urinary Verified 08/28/20 07:07 retention General Stated Complaint: EyeProblem OMERO: 4 Review of Systems All systems reviewed & are unremarkable except as noted in HPI and below PFSH Medical History Asthma GARY (generalized anxiety disorder) Herniation of lumbar intervertebral disc with radiculopathy 10/24/18 Luzma Schwartzu- recommends transforaminal injection right L4-L5 Hyperlipidemia, unspecified (09/03/15) Major depression Surgical History Fx left forearm, staph, grafting (~2007) Family History Mother Essential hypertension Hyperlipidemia COPD (chronic obstructive pulmonary disease) Depression Father Diabetes Essential hypertension Heart disease Hyperlipidemia Alcohol abuse former Grandfather Heart disease [place] in 70's Grandfather Personal history of malignant neoplasm Heart disease Social History Smoking/Tobacco Use Status: Former Tobacco Use Quit Date: 07/08/17 Smoking risk assessment performed?: Yes Alcohol Intake: former Drug use: Never Substance use type: does not use Adopted: No Household members: family Housing: house Number of Children: 1 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: male What type of physical activity do you participate in: walking Duration: 15-30 minutes/day Frequency: 3-4 times per week Seatbelt use: always Helmet use: Yes Drive intox or ride w/intox emergency detail driver: No Water heater temp set <120 deg: Yes Working smoke detector in home: Yes Fire extinguisher in home: Yes Carbon monox detector in home: Yes Firearms in home: No Do you feel safe at home: Yes Do you feel safe in your relationship?: Yes Exam Narrative Exam Narrative: 1.Const: Well-nourished, Well-developed, appearing stated age 2.Eyes: Right eye: Eye: EOMI, PERRL, Peripheral vision intact. No nystagmus.No clinical signs of septal/orbital cellulitis, no redness around the eye, no proptosis. No hyphema, no signs of trauma around the eye, no periorbital emphysema. No sluggishness of the pupil. No ophthalmoplegia. No afferent pupillary defect. Fluorescein exam is negative for corneal abrasion, there is evidence of a very small black speck of foreign body in the anterior aspect of the eye just over the pupil. Negative Gisella sign. Visual acuity normal, eversion of the upper and lower lid shows no other evidence of foreign body. Foreign body was removed without any difficulty using Q-tip. 3.ENT: Atraumatic external nose and ears. Moist MM. Neck: Symmetric, trachea midline, No thyromegaly. 4.CVS: +S1/S2, No murmurs or gallops. Peripheral pulses 2+ and equal in all extremities. Brisk capillary refill in all extremities. 5.RESP: Unlabored respiratory effort. Clear to auscultation bilaterally. No wheezes rales or rhonchi 6.GI: Soft, Nontender/Nondistended, No hepatosplenomegaly. No guarding or rebound. 7.MSK: Normocephalic/Atraumatic, Extremities w/o deformity or ttp No cyanosis or clubbing, Normal movement of all extremities 8.Skin: Warm, Dry. No rashes or lesions. 9.Neuro: maintenance tech II-XII grossly intact. Sensation grossly intact, no focal neurologic deficits. 10.Psych: (AAO) x3. Appropriate mood and affect Course Vital Signs Vital signs: Vital Signs Temperature 36.5 C 08/28/20 07:02 Pulse 88 08/28/20 07:02 Respiratory Rate 16 08/28/20 07:02 Blood Pressure 139/88 08/28/20 07:02 Pulse Oximetry 100 08/28/20 07:02 Temperature 36.5 C 08/28/20 07:02 Temperature Source Skin 08/28/20 07:02 Pulse 88 08/28/20 07:02 Respiratory Rate 16 08/28/20 07:02 Respiratory Effort Non-Labored 08/28/20 07:05 Blood Pressure 139/88 08/28/20 07:02 Blood Pressure Position Sitting 08/28/20 07:02 Pulse Oximetry 100 08/28/20 07:02 Oxygen Delivery Method Room Air 08/28/20 07:02 Oxygen Flow Rate 0 08/28/20 07:02 Pain Level 5 08/28/20 07:02
[2020-08-28] MEDS: Fluorescein STRIPS 100/BOX 1 MG (07:13)
[2020-08-28] MEDS: Erythromycin Ophth Oint 3.5 GM TUBE (07:13)
[2020-08-28] MEDS: Tetracaine 0.5% 4 ML BTL (07:13)
[2020-08-28 07:14] VITALS: BP 139/88; PULSE 88; RESP 16; TEMP 36.5; O2SAT 100
== END 2020-08-28 07:12 | disposition home or self-care (01) ==
LOC: ER 07:15
PROVIDERS: Emergency Provider Student in an Organized Health Care Education/Training Program; PCP Nurse Practitioner
DX: T15.01XA Foreign body in cornea, right eye, initial encounter (principal)
CPT/HCPCS: 65220

== ENCOUNTER 2020-09-17 04:39 | Outpatient (CLI) | payer MEDICAID, SELFPAY ==
[2020-09-17 08:43] LABS: HCT 38.2 % (40.0-50.0); HGB 13.1 g/dL (13.5-17.5); MCH 31.2 pg (27.0-33.0); MCHC 34.3 % (32.0-36.0); MPV 10.1 fL (8.0-11.0); Platelet Count 231 10^3/uL (130-400); RDW 12.2 % (11.8-14.1); RDW-SD 40.2 fL; WBC 7.16 10^3/uL (4.4-10.8)
[2020-09-17 09:55] LABS: ALT 51 U/L (16-63); AST 31 U/L (15-37); Albumin 4.5 g/dL (3.4-5.0); Alkaline Phosphatase 101 U/L (46-116); Anion Gap 9.4 mmol/L (3-11); BUN 13 mg/dL (7-18); Bilirubin, Total 0.4 mg/dL (0.2-1.0); CO2 29.6 mmol/L (21.0-32.0); CREATININE 1.07 mg/dL (0.70-1.30); Calcium 8.9 mg/dL (8.5-10.1); Chloride 101 mmol/L (98-107); Cholesterol 173 mg/dL (<200); Glucose 91 mg/dL (74-106); HDL Cholesterol 31 mg/dL (40-60); Potassium 4.4 mmol/L (3.5-5.1); Sodium 140 mmol/L (136-145); TSH (W/Ref FT4) 0.61 uIU/mL (0.36-3.74); Total Protein 7.5 g/dL (6.4-8.2); Triglyceride 432 mg/dL (<150); Vitamin B12 451 pg/mL (193-986)
[2020-09-17 10:14] LABS: LDL CHOLESTEROL 86 mg/dL (<100)
[2020-09-18 05:00] LABS: Vitamin D 25 Total 10.8 ng/ml (30-100)
== END 2020-09-17 04:59 ==
PROVIDERS: PCP Nurse Practitioner; Visit Provider Nurse Practitioner
DX: E78.5 Hyperlipidemia, unspecified (principal); I10 Essential (primary) hypertension; R63.5 Abnormal weight gain; R53.83 Other fatigue
CPT/HCPCS: 36415; 80053; 80061; 82306; 83721; 85027; 82607; 84443

== ENCOUNTER 2020-12-24 03:21 | Outpatient (CLI) | payer MEDICAID, SELFPAY ==
[2020-12-24 10:34] LABS: Calculated LDL 85 mg/dL (<100); Cholesterol 181 mg/dL (<200); HDL Cholesterol 35 mg/dL (40-60); Triglyceride 307 mg/dL (<150)
[2020-12-25 04:56] LABS: Vitamin D 25 Total 30.6 ng/mL (30-100)
== END 2020-12-24 03:22 | disposition home or self-care (01) ==
LOC: LBO 03:22
PROVIDERS: PCP Nurse Practitioner; Visit Provider Nurse Practitioner
DX: E78.1 Pure hyperglyceridemia (principal); E55.9 Vitamin D deficiency, unspecified; E78.6 Lipoprotein deficiency
CPT/HCPCS: 36415; 80061; 82306

== ENCOUNTER 2021-01-01 01:33 | Outpatient (CLI) | payer MEDICAID, SELFPAY ==
[2021-01-01] MEDS: Normal Saline - Diluent 50 ML VIAL IV (09:08)
[2021-01-01] MEDS: Omnipaque 350 MG/ML 100 ML BTL IJ (09:08)
[2021-01-01] MEDS: Normal Saline Flush 10 ML SYR IVP (09:09)
--- NOTE | 2021-01-01 09:10 | DI.CT_ITS ---
Exam(s) CT ABDOMEN PELVIS W EXAM: CT ABDOMEN PELVIS W CLINICAL HISTORY: Left abdominal pain,nausea,luq pain,r11.0,r10.12,r10.9. TECHNIQUE: Imaging Protocol: Axial computed tomography images with coronal and sagittal reformatted images were created and reviewed CONTRAST MATERIAL: Intravenous: Omnipaque 100cc Oral: Yes. Oral contrast was administered for bowel opacification. COMPARISON: No exams were available for comparison FINDINGS: VISUALIZED LUNG BASES: No nodules nor pleural effusions evident. ABDOMEN: There is no ascites. LIVER: Liver is hypodense implying steatosis. There no discrete focal hepatic lesions identified GALLBLADDER/BILIARY: There is a well-defined 1.3 x 0.7 cm finding in the gallbladder fundus region wh ich is suspicious for neoplastic mass in the gallbladder wall. There is no gallbladder wall edema. No pericholecystic fluid. CBD is not dilated. PANCREAS: No evidence of pancreatic mass nor dilatation of the pancreatic duct. SPLEEN: Spleen is not enlarged. No obvious intrasplenic lesions. Splenic and portal veins are paten t. ADRENALS: There are no significant adrenal masses. KIDNEYS:No cysts evident. No solid renal masses. No calculi nor hydronephrosis.. ABDOMINAL AORTA: Abdominal aorta is not enlarged. LYMPH NODES:There is no retroperitineal nor paraaortic adenopathy. ABDOMINAL WALL/GI: No evidence of significant anterior abdominal wall hernia. No bowel obstruction. PELVIS: GI: No evidence of appendicitis.No evidence of sigmoid diverticulitis. LYMPH NODES: There is no intrapelvic nor inguinal adenopathy. REPRODUCTIVE: Prostate not enlarged. URINARY BLADDER: No calculi nor obvious masses evident OSSEOUS: No significant osseous lesions. IMPRESSION: 1. There is an abnormal mass in the gallbladder wall near the fundus, as described above, which is moraes spicious for possible neoplasm. Ultrasound recommended. 2. Hepatic steatosis. No obvious metastatic lesions in the liver. 3. There is no dilatation biliary tree, both intra and extrahepatic. 4. There is no ascites. RADIATION DOSE DELIVERED: 1,079.72mGy.cm Total DLP DATA REPOSITORY: All CT scans at this facility are submitted to the National Radiology Data Registry (NRDR) Dose Index Registry (DIR) with the [employer] (ACR). RADIATION OPTIMIZATION: All CT scans at this facility use at least one of these dose optimization te chniques: automated exposure control; mA and/or kV adjustment per patient size (includes targeted exa ms where dose is matched to clinical indication); or iterative reconstruction.
== END 2021-01-01 01:53 ==
PROVIDERS: PCP Nurse Practitioner; Visit Provider Nurse Practitioner
DX: R10.12 Left upper quadrant pain (principal); R11.0 Nausea; K82.8 Other specified diseases of gallbladder; K76.0 Fatty (change of) liver, not elsewhere classified
CPT/HCPCS: 74177; J3490

== ENCOUNTER 2021-01-02 02:02 | Outpatient (CLI) | payer MEDICAID, SELFPAY ==
[2021-01-02 10:20] LABS: Source Nasal/Nares
[2021-01-02 13:33] LABS: COVID-19 PCR Negative (Negative)
== END 2021-01-02 02:03 | disposition home or self-care (01) ==
LOC: LBO 02:02
PROVIDERS: PCP Nurse Practitioner; Visit Provider Surgery
DX: Z20.822 Contact with and (suspected) exposure to COVID-19 (principal); Z01.818 Encounter for other preprocedural examination
CPT/HCPCS: 87635

== ENCOUNTER 2021-01-05 11:24 | Day surgery (SDC) | payer MEDICAID, SELFPAY ==
--- NOTE | 2021-01-05 06:47 | W.PM.ENDDOP ---
Date of service: 01/05/21 Time of Service: 12:25 Endoscopy Report DATE OF PROCEDURE: 01/05/21 PRE-OP DIAGNOSIS: Anemia, change in bowel habits POST-OP DIAGNOSIS: other (mild gastritis, severe reflux esophagitis, 2 colon polyps) PROCEDURE: 1. EGD with biopsies 2. Colonoscopy with polypectomy SURGEON: Zenobia Painter ANESTHESIA TYPE: General:No Airway (ASA 2/ Zenon Dacosta, MARIA EUGENIA) ESTIMATED BLOOD LOSS: 5 PATHOLOGY: other (Duodenal polyp, gastric bx, GE junction bx, ascending polyp and descending polyp) COMPLICATIONS: None DISPOSITION: same day INDICATIONS: Mr. Hilton is a pleasant 40-year-old gentleman with ongoing intermittent rectal bleeding and anemia. He has had no rectal pain, he has no family history of colon or rectal cancer. He does have changes in bowel habits from constipation to diarrhea but this is a chronic issue. He had a colonoscopy in 2016 which was normal except for fissures. He has also developed some left upper quadrant pain especially after eating over the last month or so. He denies any weight loss. Recommend colonoscopy and upper endoscopy. Both procedures were reviewed with him and explained using a pamphlet. He wishes to proceed. Risks, benefits and complications have been reviewed. Complications include but are not limited to bleeding, pain, perforation, missed small lesion/polyp, sore throat, aspiration and adverse reaction to the medications. Questions were entertained and answered to their satisfaction and they wished to proceed. No guarantees were given or implied. COVID-19 testing explained to the patient. Reason for test reviewed. Quarantine per state requirements reviewed with patient. Patient understands and agrees to testing. PREP: Miralax/Dulcolax PROCEDURE START TIME: 12:25 PROCEDURE END TIME: 12:58 COLONOSCOPY RETRACTION TIME: 17 minutes FINDINGS: Upper- mild inflammation of the stomach, seismograph observer inflammation of the distal esophagus and what looked like reparative changes vs a polyp Lower- 2 small polyps No source of ongoing bleeding noted PROCEDURE DESCRIPTION: After informed consent was obtained the patient was take to the procedure room and placed in a supine position. Monitors were applied and a time out was done. The patients name, date of , procedure type, allergies to medications and metal in their body was reviewed. A bite block was placed and the patient was sedated. Once sedated and comfortable the gastroscope was advanced through the oropharynx which was grossly normal into the esophagus. The proximal and mid-esophagus were normal. In the distal esophagus there was inflammation noted as well as reparative changes vs polyp. The scope was advanced into the stomach and through the pylorus into the 3rd portion of the duodenum. The duodenum was noted to be normal. There was a very small polyp noted and this was removed with forceps. The scope was retracted back into the stomach. There was mild inflammation noted in the antrum and body. Biopsies were done to rule out H. pylori. There were no ulcers. The scope was retro-flexed. The cardia and fundus were noted to be normal. There was a small hiatal hernia noted. The scope was retracted back into the esophagus and biopsies were done of the GE junction to rule out Malhotra's. The Z line was regular. The GE junction was at 35 cm. While the patient was still sedated they were placed in a left decubitous position. A rectal exam was done. External exam was normal. Internal exam revealed a normal sphincter tone and no palpable masses. The prostate felt smooth and normal size. The scope was then introduced and retro-flexed. No internal hemorrhoids, masses or polyps were identified on retroflexion. The scope was then advanced to the cecum without difficulty. The ileocecal valve and appendiceal orifice were identified. The prep was good. The scope was then slowly retracted over 17 minutes back into the rectum. Polyps were removed with with cold forceps in the ascending colon and descending colon. There was no diverticulosis noted. The scope was removed and the patient was woken up and taken back to Same day surgery in stable condition. The patient tolerated the procedure well and there were no immediate complications. Follow up: 2 weeks in the office
--- NOTE | 2021-01-05 06:48 | W.PM.DSUDISC ---
Discharge Plan Disposition Patient Disposition: HOME Condition: Good Discharge Details Reason For Visit: Colonoscopy Attending Provider: Zenobia Painter Primary Care Provider: Lara Sy Home Meds and New Rx's Prescriptions: New omeprazole 40 mg capsule,delayed release(DR/EC) 40 mg PO DAILY Qty: 30 RF: 5 Continued albuterol sulfate [ProAir HFA] 90 mcg/actuation HFA aerosol inhaler 1 - 2 puff Inhalation Q4H PRN PRN (Reason: shortness of breath or wheezing) Qty: 18 RF: 12 atorvastatin 20 mg tablet 20 mg PO QHS Qty: 90 RF: 3 ergocalciferol (vitamin D2) 1,250 mcg (50,000 unit) capsule 1,250 mcg PO QWEEK Qty: 12 RF: 3 methadone 10 mg/mL concentrate 90 mg PO DAILY RF: 0 Discontinued bisacodyl [Dulcolax (bisacodyl)] 5 mg tablet,delayed release (DR/EC) 5 mg PO ONCE Qty: 4 RF: 0 polyethylene glycol 3350 17 gram/dose powder 17 g PO ONCE Qty: 238 RF: 0 Discharge Instructions Instructions: Diet for Stomach Ulcers and Gastritis (ED), Colorectal Polyps (DC), Esophagitis (DC) Additional Instructions: Findings: inflammation of the stomach Severe inflammation of the esophagus consistent with reflux 2 polyps in the large bowel Follow up: 2 weeks in the office Please call if you develop: fevers >101.5 Nausea or Vomiting Abdominal pain that is not transient Rectal bleeding that is more then a tbsp A hard abdomen and inability to pass gas DAY SURGERY UNIT POST ENDOSCOPY INSTRUCTIONS Instructions for everyone who is given Anesthesia: For your safety, please do the following for the next 24 Hours: a. Do not drive or operate dangerous equipment b. Do not drink alcohol beverages or use any recreational drugs for the first 24 hours or while taking pain medications. The medications in your body may have a reaction that can be dangerous. c. Do not make any important decisions or sign any important papers 1. Generally there are no restrictions on your activity after a day or so has gone by, but you may feel a bit fatigued for a few days. 2. After you arrive home you may have a light meal and return to a normal diet as you can tolerate it without feeling sick to your stomach. 3. After surgery, you may feel pain or discomfort. This should be only transient, but if it persists please contact your doctor. 4. If there are any questions regarding the findings of your procedure, please feel free to contact your doctor. 6. If you are unable to contact your doctor with a problem, contact the hospital at [phone]. 7. Continue all your regular medications unless directed otherwise. I understand the above instructions and have no questions. Signature of Patient or Responsible Adult Escort Date/Time Name of Responsible Adult Escort Signature of Nurse Date/Time Referrals: Zenobia Painter MD [ [facility] STAFF PHYSICIAN] - 01/16/21 10:00 am Activity:: Activity as Tolerated Diet:: low acid Discharge Orders Discharge Orders: Discharge Order (Routine); Ordered 01/05/21 Ordered By: Zenobia Painter
--- NOTE | 2021-01-05 11:08 | W.ANESPRE ---
General Info Date of Service Date Performed: 01/05/21 Height: 5 ft 10 in Weight: 100.698 kg Body Mass Index (BMI): 31.8 Surgical Procedure: Operation Date: 01/05/21 13:05 Proposed Procedures Side Surgeon p Colonoscopy/Gastroscopy Zenobia Painter MD Meds Allergies and Home Medications Allergies Allergy/AdvReac Type Severity Reaction Status Date / Time Penicillins Allergy Severe Hives Verified 01/05/21 11:44 Sulfa (Sulfonamide Allergy Mild Hives Verified 01/05/21 11:44 Antibiotics) methadone AdvReac Intermediate urinary Verified 01/05/21 11:44 retention Home Medication Medication Instructions Recorded albuterol sulfate 90 mcg/actuation 1 - 2 puff INHALATION Q4H PRN PRN 09/08/20 aerosol inhaler #18 gm atorvastatin 20 mg tablet 20 mg PO QHS #90 tab 09/08/20 ergocalciferol (vitamin D2) 1,250 1,250 mcg PO QWEEK #12 cap 09/18/20 mcg (50,000 unit) capsule methadone 10 mg/mL oral concentrate 90 mg PO DAILY ml 12/31/20 PFSH Active Problems Active Problems: Problem Status Onset Code Gallbladder mass K82.[address] of the abdomen R93.5 Mild intermittent asthma without complication 08/12/15 J45.20 Social anxiety disorder F40.10 Tobacco dependence syndrome 08/12/15 F17.200 Chronic low back pain with right-sided sciatica 08/12/15 M54.41, G89.29 Snoring R06.83 Nausea R11.0 Left sided abdominal pain R10.9 Vitamin D deficiency E55.9 Low HDL (under 40) E78.6 Weight gain R63.5 Fatigue R53.83 Chronic pain of left elbow 08/12/15 M25.522, G89.29 History of rectal bleeding 08/12/15 Z87.19 GARY (generalized anxiety disorder) F41.1 Major depression F32.9 Herniation of lumbar intervertebral disc with radiculopathy M51.16 Nasal septal deviation J34.2 Hypertrophy of nasal turbinates J34.3 Nasal obstruction J34.89 Snoring R06.83 High triglycerides E78.1 Tobacco abuse 08/19/16 Z72.0 Pain in left patino 05/25/17 M79.662 Hyperlipidemia, unspecified 09/03/15 E78.5 Dislocation of temporomandibular joint 08/19/16 S03.00XA Medical History Medical History Chronic low back pain with right-sided sciatica (08/12/15) GARY (generalized anxiety disorder) Herniation of lumbar intervertebral disc with radiculopathy 10/24/18 Luzma Schwartzu- recommends transforaminal injection right L4-L5 History of alcohol abuse (08/12/15) Hyperlipidemia, unspecified (09/03/15) Left sided abdominal pain Low HDL (under 40) Major depression Mild intermittent asthma without complication (08/12/15) Rhinitis with nasal crusting. 11/17/18 Dr Templeton, Otolarynology Snoring Tobacco dependence syndrome (08/12/15) Vitamin D deficiency Surgical History Surgical History Fx left forearm, staph, grafting (~2007) H/O rhinoplasty S/P colonoscopy (~2015) Tobacco Smoking/Tobacco Use Status: Former Tobacco Use Alcohol Alcohol Intake: former Substance Use Substance use: Never Substance use type: does not use Vital Signs and Lab Results Vital Signs Most Recent Vital Signs in EMR: Temp Pulse Resp BP Pulse Ox 36.3 C L 75 16 126/82 96 01/05/21 11:47 01/05/21 11:47 01/05/21 11:47 01/05/21 11:47 01/05/21 11:47 Lab Results Blood Type / Crossmatch: No Data to Display Complete Blood Count: White Blood Count 7.16 10^3/uL (4.4-10.8) 09/17/20 08:14 09/17/20 Red Blood Count 4.20 10^6/uL (4.36-5.78) L 09/17/20 08:14 09/17/20 Hemoglobin 13.1 g/dL (13.5-17.5) L 09/17/20 08:14 09/17/20 Hematocrit 38.2 % (40.0-50.0) L 09/17/20 08:14 09/17/20 Platelet Count 231 10^3/uL (130-400) 09/17/20 08:14 09/17/20 Complete Metabolic Panel: Sodium Level 140 mmol/L (136-145) 09/17/20 08:14 09/17/20 Potassium Level 4.4 mmol/L (3.5-5.1) 09/17/20 08:14 09/17/20 Chloride Level 101 mmol/L (98-107) 09/17/20 08:14 09/17/20 Carbon Dioxide Level 29.6 mmol/L (21.0-32.0) 09/17/20 08:14 09/17/20 Blood Urea Nitrogen 13 mg/dL (7-18) 09/17/20 08:14 09/17/20 Creatinine 1.07 mg/dL (0.70-1.30) 09/17/20 08:14 09/17/20 Calcium Level 8.9 mg/dL (8.5-10.1) 09/17/20 08:14 09/17/20 Albumin 4.5 g/dL (3.4-5.0) 09/17/20 08:14 09/17/20 Glucose Level 91 mg/dL (74-106) 09/17/20 08:14 09/17/20 Hemoglobin A1c 5.1 % (4.5-6.2) 10/05/16 09:55 10/05/16 Liver Function Panel: Alanine Aminotransferase (ALT/SGPT) 51 U/L (16-63) 09/17/20 08:14 09/17/20 Aspartate Amino Transf (AST/SGOT) 31 U/L (15-37) 09/17/20 08:14 09/17/20 Coagulation Panel: No Data to Display Cardiac Panel: No Data to Display Arterial Blood Gas: No Data to Display Venous Blood Gas: No Data to Display Pancreas Panel: Amylase Level 58 U/L (25-115) 10/23/13 10:40 10/23/13 Lipase 251 U/L (73-393) 10/23/13 10:40 10/23/13 Thyroid Panel: Thyroid Stimulating Hormone (TSH) 0.61 uIU/mL (0.36-3.74) 09/17/20 08:14 09/17/20 Infectious Disease: Coronavirus (COVID-19)(PCR) Negative (Negative) 01/02/21 07:42 01/02/21 Coronavirus 2019 Source Nasal/nares 01/02/21 07:42 01/02/21 Blood Cultures: No Data to Display Toxicology Panel: No Data to Display Anesthesia Assessment and Plan Anesthesia History Personal History: No History of Anesthesia Complications Family History: No Family History of Anesthesia Complications Exercise Tolerance Exercise Tolerance: Metabolic Equivalents>4 Pertinent Negatives Pertinent Negatives: No Symptoms of GERD Cardiac & Pulmonary Exam Cardiac Exam: Normal S1/S2 Heart Sounds Pulmonary Exam: Clear Bilateral Breath Sounds Airway Exam Known Difficult Airway: No Mallampati Class: 2 Mouth Opening: Normal (> 3cm) Thyromental Distance: Greater than 3 cm Neck Range of Motion: Full ROM Neck Circumference: Normal Teeth Condition: Normal Dentition ASA Classification ASA Score: ASA 2 ASA Emergency: No NPO Status NPO Status: NPO Clears >2 hours, Solids >8 hours Anesthesia Plan Anesthesia Technique: General Anesthesia Airway Planned: Natural Airway Monitors Used: Standard Monitors
[2021-01-05 11:47] VITALS: BP 126/82; PULSE 75; RESP 16; TEMP 36.3; O2SAT 96
[2021-01-05 11:59] VITALS: BMI 31.8
[2021-01-05] MEDS: Lactated Ringers 1,000 ML 80 ML IV (12:00)
--- NOTE | 2021-01-05 12:30 | STOM_PTH ---
PATIENT: Sonny Hilton LOC: [facility] U#:[id number] AGE/SX: 40/M ROOM: RE01/05/[address]: Zenobia Painter MD : 1980 BED: DIS: 01/05/2021 SPEC #: [id number] RECD: 01/05/21 17:52 STATUS: DEANDRE LEUNG #: [id number] BETO: 01/05/21 12:[address]: Zenobia Painter DEPT: Surgical Specimen RECD BY: Shahla Ordoñez ENTERED: 01/05/21 17:54 SP TYPE: STOMACH OTHR DR: Lara Sy APRN Tissues: 1 - BIOPSY BOWEL 2 - STOMACH BIOPSY 3 - STOMACH BIOPSY 4 - ESOPHAGUS BIOPSY 5 - BIOPSY BOWEL 6 - BIOPSY BOWEL Procedures: GROSS AND MICRO LEVEL 4 Comments: [id number]
[2021-01-05 13:03] VITALS: BP 120/69; PULSE 71; RESP 16; TEMP 36.6; O2SAT 97
--- NOTE | 2021-01-05 13:03 | W.ANESPOSTOP ---
Postoperative Evaluation Date, Time and Location Date Performed: 01/05/21 Time Performed: 13:03 Patient Location: Day Surgery Unit Vital Signs Most Recent Imported Vital Signs: Most Recent Vital Signs Temp Pulse Resp BP Pulse Ox 36.3 C L 75 16 126/82 96 01/05/21 11:47 01/05/21 11:47 01/05/21 11:47 01/05/21 11:47 01/05/21 11:47 Most Recent Manually Entered Vital Signs: Adult Blood Pressure: 120/69 Heart Rate: 70 Respirations: 16 Oxygen Saturation (%): 97 Temperature (C): 36.6 C Pain Score (0-10 Scale): 0 Pain Score Most Recent Pain Score: Most Recent Pain Score Pain Level 1 01/05/21 11:47 Assessment Mental Status: Arousable with meaningful communication Airway and Respiratory Function: Patent airway with normal (patient baseline) respiratory exam Cardiovascular Function: Hemodynamically Stable Hydration Status: Adequately Hydrated Nausea & Vomiting: No Nausea or Vomiting Pain: Pt. Denies Any Pain Peripheral Nerve Block: Patient did not receive a nerve block
[2021-01-05 13:04] VITALS: BP 120/69; PULSE 70; RESP 16; TEMPC 36.6; O2SAT 97
[2021-01-05 13:27] VITALS: BP 125/64; PULSE 62; RESP 16; TEMP 36.4; O2SAT 95
== END 2021-01-05 14:12 | disposition home or self-care (01) ==
LOC: SUR 11:25
PROVIDERS: PCP Nurse Practitioner; Visit Provider Surgery
PROC: (CPT 45380; principal; 2021-01-05 13:00)
DX: D64.9 Anemia, unspecified (principal); D12.2 Benign neoplasm of ascending colon; K21.00 Gastro-esophageal reflux disease with esophagitis, without bleeding; K29.70 Gastritis, unspecified, without bleeding; D12.4 Benign neoplasm of descending colon; K31.7 Polyp of stomach and duodenum; J45.20 Mild intermittent asthma, uncomplicated; E55.9 Vitamin D deficiency, unspecified; F17.210 Nicotine dependence, cigarettes, uncomplicated; E78.5 Hyperlipidemia, unspecified; F41.1 Generalized anxiety disorder
CPT/HCPCS: 45380; 43239; 88305

== ENCOUNTER 2021-01-06 01:43 | Outpatient (CLI) | payer MEDICAID, SELFPAY ==
--- NOTE | 2021-01-06 06:45 | DI.US_ITS ---
Exam(s) US ABDOMEN EXAM: US ABDOMEN CLINICAL HISTORY: Abnormal CT, ? gallbladder neoplasm,GB MASS,R93.5,K82.8 TECHNIQUE: Ultrasound abdomen performed using standard protocol. COMPARISON: CT ABD PELVIS WITH CONTRAST from 10/26/2013 CT ABD PELVIS WITH CONTRAST from 10/26/[address] ABDOMEN PELVIS W from 01/01/2021 FINDINGS: ABDOMINAL AORTA AND IVC: Visualized portions normal caliber. PANCREAS: Normal where visualized. LIVER: Normal. Hepatopedal flow in the Portal Vein. The liver measures 16 cm in length. GALLBLADDER: No evidence of cholelithiasis. No evidence of wall thickening. No pericholecystic fluid identified. At the fundus area of the gallbladder, there is a 2.4 x 1.0 x 2.0 cm lesion corresponding to the CT abnormality. Internally it appears isoechoic to the bile. It does appear to have a mildl y thickened wall. No internal blood flow is seen. BILIARY SYSTEM: Common bile duct measures < 7 mm. No intrahepatic biliary ductal dilation. MISHRA'S SIGN: Negative. KIDNEYS: Kidneys are symmetric in size. No evidence of renal calculi. No evidence of hydronephrosis. No renal mass or cyst identified. SPLEEN: Not enlarged. ASCITES: None seen. IMPRESSION: 2.4 x 1 x 2.0 cm lesion in the fundus of the gallbladder. Internally, it is isoechoic to bile and haskins s a mildly thickened wall. No internal blood flow is seen. This may represent a Phrygian cap which is a normal variant. This was present on the CT scan of the abdomen and pelvis from 10/26/2013 and is unchanged in size. DATA REPOSITORY:
== END 2021-01-06 02:03 ==
PROVIDERS: PCP Nurse Practitioner; Visit Provider Nurse Practitioner
DX: K82.8 Other specified diseases of gallbladder (principal); R93.5 Abnormal findings on diagnostic imaging of other abdominal regions, including retroperitoneum
CPT/HCPCS: 76700

== ENCOUNTER 2021-10-14 01:47 | Outpatient (CLI) | payer MEDICAID, SELFPAY ==
[2021-10-14 07:14] LABS: Abs Immature Grans 0.04 10^3/uL (0.0-0.06); Absolute Basophil Count 0.05 10^3/uL (0.0-0.2); Absolute Eosinophil Count 0.18 10^3/uL (0.0-0.7); Absolute Lymphocyte Count 2.25 10^3/uL (1.2-3.4); Absolute Monocyte Count 0.56 10^3/uL (0.1-0.8); Basophils % 0.7; Eosinophils % 2.4; HCT 40.3 % (40.0-50.0); Immature Grans % 0.5; Lymphocytes % 30.1; MCH 29.4 pg (27.0-33.0); MCHC 32.3 % (32.0-36.0); MCV 91.2 fL (80-95); MPV 9.1 fL (8.0-11.0); Monocytes % 7.5; Neutrophils % 58.8; Nucleated RBC 0 %; Platelet Count 220 10^3/uL (130-400); RBC 4.42 10^6/uL (4.36-5.78); RDW 13.1 % (11.8-14.1); RDW-SD 43.8 fL; WBC 7.48 10^3/uL (4.4-10.8)
[2021-10-14 07:43] LABS: Total Iron Binding Capacity 320 ug/dL (250-450)
[2021-10-14 08:10] LABS: ALT 50 U/L (16-63); Alkaline Phosphatase 130 U/L (46-116); Anion Gap 7.4 mmol/L (3-11); BUN 11 mg/dL (7-18); Bilirubin, Total 0.3 mg/dL (0.2-1.0); CO2 32.6 mmol/L (21.0-32.0); Chloride 104 mmol/L (98-107); Cholesterol 229 mg/dL (<200); Ferritin 161 ng/mL (26-388); Glucose 168 mg/dL (74-106); HDL Cholesterol 30 mg/dL (40-60); Potassium 4.2 mmol/L (3.5-5.1); Sodium 144 mmol/L (136-145); Total Protein 7.3 g/dL (6.4-8.2); Triglyceride 992 mg/dL (<150); Vitamin B12 613 pg/mL (193-986)
[2021-10-14 08:23] LABS: AST 34 U/L (15-37)
[2021-10-14 08:37] LABS: LDL CHOLESTEROL 64 mg/dL (<100)
== END 2021-10-14 01:48 | disposition home or self-care (01) ==
LOC: LBO 01:47
PROVIDERS: PCP Nurse Practitioner; Visit Provider Nurse Practitioner
DX: D64.9 Anemia, unspecified (principal); J45.909 Unspecified asthma, uncomplicated; E78.2 Mixed hyperlipidemia
CPT/HCPCS: 36415; 80053; 80061; 83721; 82607; 82728; 83550; 85025

== ENCOUNTER 2021-10-22 02:54 | Outpatient (CLI) | payer MEDICAID, SELFPAY | END 2021-10-22 02:55 | disposition home or self-care (01) | LOC: LBO 02:54 | PROVIDERS: PCP Nurse Practitioner; Visit Provider Nurse Practitioner ==

== ENCOUNTER 2021-11-04 01:38 | Outpatient (CLI) | payer MEDICAID, SELFPAY | END 2021-11-04 01:39 | disposition home or self-care (01) | LOC: LBO 01:39 | PROVIDERS: PCP Nurse Practitioner; Visit Provider Nurse Practitioner ==

== ENCOUNTER 2021-11-09 04:32 | Outpatient (CLI) | payer MEDICAID, SELFPAY ==
[2021-11-09 08:48] LABS: Hemoglobin A1C 5.4 % (<5.7)
[2021-11-09 09:23] LABS: Anion Gap 9.6 mmol/L (3-11); BUN 13 mg/dL (7-18); CO2 30.4 mmol/L (21.0-32.0); CREATININE 0.9 mg/dL (0.70-1.30); Calcium 9.1 mg/dL (8.5-10.1); Chloride 102 mmol/L (98-107); Cholesterol 200 mg/dL (<200); Glucose 108 mg/dL (74-106); HDL Cholesterol 29 mg/dL (40-60); Potassium 4.3 mmol/L (3.5-5.1); Sodium 142 mmol/L (136-145); Triglyceride 675 mg/dL (<150)
[2021-11-09 09:35] LABS: LDL CHOLESTEROL 72 mg/dL (<100)
== END 2021-11-09 04:33 | disposition home or self-care (01) ==
LOC: LBO 04:32
PROVIDERS: PCP Nurse Practitioner; Visit Provider Nurse Practitioner
DX: E78.1 Pure hyperglyceridemia (principal); R79.89 Other specified abnormal findings of blood chemistry
CPT/HCPCS: 36415; 80048; 80061; 83721; 83036

== ENCOUNTER 2022-02-03 04:10 | Outpatient (CLI) | payer MEDICAID, SELFPAY ==
[2022-02-03 08:31] LABS: ALT 42 U/L (16-63); AST 28 U/L (15-37); Albumin 4.6 g/dL (3.4-5.0); Alkaline Phosphatase 99 U/L (46-116); Anion Gap 7.2 mmol/L (3-11); BUN 14 mg/dL (7-18); Bilirubin, Total 0.5 mg/dL (0.2-1.0); CO2 29.8 mmol/L (21.0-32.0); CREATININE 1.2 mg/dL (0.70-1.30); Calcium 9.1 mg/dL (8.5-10.1); Calculated LDL 126 mg/dL (<100); Chloride 106 mmol/L (98-107); Cholesterol 190 mg/dL (<200); Glucose 108 mg/dL (74-106); HDL Cholesterol 33 mg/dL (40-60); Potassium 4.2 mmol/L (3.5-5.1); Sodium 143 mmol/L (136-145); Total Protein 7.5 g/dL (6.4-8.2); Triglyceride 155 mg/dL (<150)
== END 2022-02-03 04:11 | disposition home or self-care (01) ==
LOC: LBO 04:10
PROVIDERS: PCP Nurse Practitioner; Visit Provider Nurse Practitioner
DX: E78.1 Pure hyperglyceridemia (principal); E78.6 Lipoprotein deficiency
CPT/HCPCS: 36415; 80053; 80061

== ENCOUNTER 2022-02-16 02:34 | Outpatient (CLI) | payer MEDICAID, SELFPAY ==
[2022-02-17 12:08] LABS: Lyme Ab w Rflx to Lyme Confirm Negative (Negative)
[2022-02-23 11:25] LABS: Anaplasma phagocytophilum Negative (Negative); B. miyamotoi PCR Negative (Negative); Babesia divergens/MO-1 Negative (Negative); Babesia duncani Negative (Negative); Babesia microti Negative (Negative); Ehrlichia chaffeensis Negative (Negative); Ehrlichia ewingii/canis Negative (Negative); Ehrlichia muris eauclairensis Negative (Negative)
== END 2022-02-16 02:35 | disposition home or self-care (01) ==
LOC: LBO 02:34
PROVIDERS: Absent Provider Nurse Practitioner; PCP Nurse Practitioner; Referring Provider Nurse Practitioner; Visit Provider Nurse Practitioner
DX: W57.XXXA Bitten or stung by nonvenomous insect and other nonvenomous arthropods, initial encounter (principal); T14.8XXA Other injury of unspecified body region, initial encounter
CPT/HCPCS: 36415; 87798; 86618

== ENCOUNTER 2022-04-21 14:56 | Outpatient (REF) | payer MEDICAID, SELFPAY | END 2022-04-21 14:57 | disposition home or self-care (01) | LOC: LBN 14:56 | PROVIDERS: PCP Nurse Practitioner; Referring Provider Nurse Practitioner; Visit Provider Nurse Practitioner | DX: L98.8 Other specified disorders of the skin and subcutaneous tissue; R21 Rash and other nonspecific skin eruption | CPT/HCPCS: 87070 ==

== ENCOUNTER 2022-06-04 02:09 | Outpatient (CLI) | payer MEDICAID, SELFPAY ==
--- OUTSIDE RECORDS SUMMARY | 2022-06-04 02:11 | XMS_ITS | Encounter Summary ---
:1980 Author Organization [facility] [place] [address] Care Team Providers Name Role Phone Lara Sy Jono BRO Primary Care Provider Encounter Details Date Type Department Care Team Description 09/22/2021 Orders Only Gastroenterology at [facility] Alvaro Ewing Gastroesophageal reflux [facility] Laurel [place] [address] [facility] esophagitis without [phone] [place] [address] Social History Tobacco Use Types Packs/Day Years Used Date Former Smoker Cigarettes 2 20 Quit: 2017 Smokeless Tobacco: Never Used Alcohol Use Standard Drinks/Week Comments Not Currently 0 (1 standard drink = 0.6 oz pure alcoho l) 3/week Alcohol Habits Answer Date Recorded How often do you have a drink containing alcohol? Not asked How many drinks containing alcohol do you have on a typical Not asked day when you are drinking? How often do you have six or more drinks on one occasion? No t asked Comment: 3/week 09/22/2021 Sex Assigned at Date Recorded Male 09/21/2021 8:23 AM EST documented as of this encounter Plan of Treatment Upcoming Encounters Date Type Specialty Care Team Description 07/22/2022 Office Visit Dermatology [facility] [address] [facility] [place], [place] [address] (Wo rk) documented as of this encounter Visit Diagnoses Diagnosis Gastroesophageal reflux disease with eso phagitis without hemorrhage documented in this encounter Care Teams Rn New Grad Relationship Specialty Start Date End Date Lara Sy APRN PCP - General Internal Medicine 10/09/[address] [place] [place] [address] documented as of this encounter
--- OUTSIDE RECORDS SUMMARY | 2022-06-04 02:11 | XMS_ITS | Encounter Summary ---
:1980 Author Organization [place] [place] [address] Care Team Providers Name Role Phone Lara Sy APRN Primary Care Provider Reason for Referral Psychiatric (Routine) - Closed Specialty Diagnoses / Procedures Referred By Contact Refer red To Contact Gastroenterology Diagnoses Irritable bowel syndrome, unspecified type Alvaro Ewing MD [facility], [facility] Laurel Cowart, PhD [address] [place] [address] Phone: Fax: Referral ID Status Reason Start Date Expiration Date Visits V isits Requested Authorized [id number] Closed Specialty 04/28/2021 04/28/2022 1 1 Service Requested Reason for Visit Consultation (Routine) - Closed Specialty Diagnoses / Procedures Referred By Contact Refer red To Contact Gastroenterology Diagnoses Motility- LUQ pain Lara Sy APRN [facility] G[facility] 4l Procedures consult [address] [place] [place] [address] [address] [place] [address] Fax: Referral ID Status Reason Start Date Expiration Date Visits Requ ested Visits Authorized [id number] Closed 01/27/2021 01/27/2022 1 1 Encounter Details Date Type Department Care Team Description 04/28/2021 Office Visit Gastroenterology at [facility] Alvaro Ewing Irritable bowel syndrome, un specified type; [facility] Laurel De La Cruz MD Functional dyspepsia; [place] [address] [facility] Anemia, unspecified type [phone] [place] [address] Social History Tobacco Use Types Packs/Day Years Used Date Former Smoker Cigarettes 2 20 Quit: 2017 Smokeless Tobacco: Never Used Alcohol Use Standard Drinks/Week Comments Not Currently 0 (1 standard drink = 0.6 oz pure alcoho l) Sex Assigned at Date Recorded Male 09/21/2021 8:23 AM EST documented as of this encounter Last Filed Vital Signs Vital Sign Reading Time Taken Comments Blood Pressure - - Pulse - - Temperature - - Respiratory Rate - - Oxygen Saturation - - Inhaled Oxygen Concentration - - Weight 98.7 kg (217 lb 8 oz) 04/28/2021 3:05 PM EDT Height 175.3 cm (5' 9) 04/28/2021 3:05 PM EDT Body Mass Index 32.12 04/28/2021 3:05 PM EDT documented in this encounter Patient Instructions Patient InstructionsCuAlvaro hedrick MD - 04/28/2021 3:00 PM EDT Functional Bowel Disorders: Information Handout for Patients and Primary Care Providers Alvaro Ewing MD, FRCPC + Govind Mcmillan MD, ARLETTE Shannon Ruelas APRN + ADALI Au, PhD [facility] What are functional bowel disorders? These are the most common type of gastrointestinal disorders in the [facility] ??? The most common functional bowel disorder in the [facility] is irritable bowel syndrome (IBS) ??? Irritable bowel syndrome affects the lower GI tract and can cause bloating, abdominal pain, diarrhea, and constipation ??? Functional dyspepsia (FD) affects the upper GI tract and can cause bloating, burping, heartburn,nausea, fullness and stomach discomfort ??? In functional disorders the gut is structurally/anatomically normal but is not functioning properly due to abnormalities in the enteric (gut) nervous system ??? Two mechanisms cause symptoms - heightened sensitivity of the gut to normal sensations (sensory nerves) and abnormal gut motility (motor nerves) ??? These disorders are caused by a combination of a genetic factors, changes to the gut microbiota (intestinal bacteria) and environmental triggers How common are these disorders and what is the impact? 15-20% of general [place] population has IBS or FD or both ??? IBS is the 2nd most common cause for lost work days (after common cold) in [place] ??? IBS is estimated to cost the [place] economy 30 billion dollars per year ??? These disorders are typically chronic and can have a significant impact on quality of life How is the diagnosis made? The diagnosis of a functional disorder is NOT a ???diagnosis of exclusion?? (common misconception) ??? Investigations may be necessary to look for other disorders (such as celiac disease) that may becontributing to symptoms. Sometimes investigations are required if the diagnosis is unclear ??? Work-up may include history (description of symptoms), physical exam, bloodwork, stool studies, diagnostic imaging, motility tests and endoscopy What is the prognosis? Functional bowel disorders are unfortunately chronic disorders and often have a major impact on patient quality of life, function, and relationships ??? Symptoms may gradually resolve in some patients (highest rate in patients with immediate onset of symptoms after infection); [employer] symptoms are expected in most patients however ??? Most patients experience a variable course with varying degrees of symptom severity. Intermittent exacerbations (i.e. ???flares?? ) are common and may be caused by stress, infections, antibiotic exposure, and lack of adherence to treatment plans. Often there is no clear precipitant for an exacerbation though. When should a patient be re-evaluated? Patients with stable symptoms do NOT need episodic re-evaluation ??? Subtle changes in symptoms and symptom flares are common ??? Patients should be re-evaluated if they have progression or dramatic changes in symptoms, severeabdominal pain, swallowing difficulties, unexplained weight loss, anemia (low blood counts), or bleeding ??? If you have concerns be sure to talk to your PRP or GI provider How do I use this information? Set realistic goals! Remember it is unlikely that any one measure will completely eliminate all symptoms ?Start low and go slow?? with all measures to avoid potential side effects ??? Stay on any measure continuously for at least 4-6 weeks prior to assessing whether or not it is helping (improvements are often slow to occur) ??? After an adequate trial ask yourself if the benefit is worth continuing the treatment ??? Most patients will need multiple treatment measures (each giving a partial benefit) - this is called the ???layering strategy? Remember that finding the right combination for you takes time and patience - there is NO ???miracle cure?? for functional disorders ??? Remember there are limited treatment options available. We want to be absolutely sure that a measure is not effective or intolerable before stopping it and considering other options ??? We specifically recommend all patients to do ALL general lifestyle and dietary measures. Patients that do not follow these general measures generally do not have improvement. We also specifically suggest using a fiber supplement (such as Metamucil) and probiotics together - this approach benefits most patients ??? OTC (sfkk-otp-ybvximi) medications can be used for ongoing bothersome symptoms as listed below ??? Your doctor (PCP or [facility] Gastroenterology provider or Gastroenterology provider) may decide to use prescription medications if you have ongoing symptoms despite using lifestyle and dietary measures and OTC medications ??? Your doctor will give you advice on treatments but it is your responsibility to work on these measures to improve your symptoms. Lack of following recommendations is a common cause for ongoing symptoms. ??? If symptoms are controlled try easing back on measures - remember the main goal is to improve quality of life (not necessarily eliminate symptoms). Goals of Therapy ??? Complete resolution of all symptoms is not a realistic goal for most patients. ??? Although we hope for you to have decreased symptoms we believe the most important goal is to help you find strategies to cope with and understand your disorder. Ultimately, we hope that you are able to improve your quality of life and do the things that are important in your life! Non-Pharmacologic General Treatments Lifestyle measures ??? Many lifestyle factors can worsen IBS symptoms ??? However, IBS is not caused by these factors (common misconception) ??? These lifestyle factors include the following: o Inadequate sleep o Weight gain o Inadequate exercise o Stress o Depression/anxiety - this should be brought up to your Primary Care Provider (if left untreated itis unlikely the functional bowel disorder will improve) Dietary measures ??? Trigger food avoidance - you should re-introduce foods once symptoms settle as overly restrictive diet can be unhealthy and even harmful ??? Fatty foods, spicy foods, alcohol, and caffeine can worsen symptoms ??? Consider a 2 week dairy-free trial for possible lactose-intolerance ??? Your PCP or GI provider can refer you to a dietitian for formal instruction on specialized dietsincluding the low FODMAP diet (but we don't recommend using this without dietitian involvement). Fiber ??? Aim for a goal is 30 g fiber/day - some patients may require more or less ??? Increase fiber by 5 g per week (remember ???start low and go slow?? ) ??? Fiber can be from multiple dietary sources but supplementation may be helpful ??? Fiber intake should include psyllium fiber; this is the type of fiber used in research studies for treatment of IBS ??? Sources of psyllium include All-Bran psyllium buds, Metamucil, bulk psyllium (Health Enhancement Products food storesand Wego stores) ??? Specifically we recommend starting Metamucil at a low dosage such as one teaspoon a day for one week then gradually increasing by one teaspoon per week until no further benefit with increasing dosage is achieved. Most patients take between 2 and 6 teaspoons per day. ??? Fluid intake goal is 8-10 glasses/day (caffeine and alcohol count as minus one in calculation) Probiotics ??? Promising area but convincing medical evidence is still lacking ??? Hqks-tlu-qpqzrap supplements are not typically evaluated by FDA - quality/safety unclear and many products actually do not contain any probiotics at all ??? Live-culture yogurts, kombucha and other dietary sources are an option ??? Align, TuZen, and Visbiome are the three probiotics that are supported by medical research to have been shown benefit for IBS (available in most pharmacies, supermarkets or online) ??? Florastor has been shown to benefit some post-infectious patients Psychology/Coping Skills ??? Coping with chronic bothersome symptoms from functional disorders can be very challenging. Additionally it is not uncommon for functional disorders to contribute to feelings of stress, anxiety, anddepression, which can actually worsen functional disorders. This can be a vicious cycle! ??? Smartphone apps can be helpful for coping with IBS symptoms, and lessening the impact of stressors on IBS o Headspace (anxiety/stress/mindfulness) o Calm (anxiety/stress/mindfulness) o CBT-I livestock judging coach (insomnia/sleep problems) o Curable (chronic pain) ??? There is evidence for Cognitive Behavioral Therapy (CBT) for IBS - you can try this at home using a workbook (Controlling IBS the Drug-Free Way: A 10-Step Plan for Symptom Relief by Neftali Mckeon, Ph.D.) or work with a GI psychologist ??? A local therapist may also be helpful for managing the impact of IBS and decreasing the likelihood that stressors will cause flares o psychologytoKizziang.Greenpie o ABCT.org o ContextualScience.org ??? Gut-directed hypnotherapy for IBS is also supported by research - you may find a provider at [employer] OTC Medications for Functional Gut Disorders Diarrhea ??? Loperamide (Imodium) should be considered first for mild and intermittent symptoms - start with small doses and take several hours before needed (or even before bed) (it is generally considered safe for long-term use) Constipation ??? Patients with mild constipation can use laxatives ???as needed?? (in other words, if you feel constipated or haven't had a regular bowel movement). However, patients with more severe constipation generally will need laxatives on a regular schedule (every day or every second day for example). Thisis called ???maintenance therapy?? . ??? PEG 3350 (Miralax) is a stool softener that is safe for [employer] usage (no risk of dependency) and the dosage can be adjusted to achieve 1-2 soft bowel movements per day; you can take 17g twice daily if needed ??? Milk of magnesia, magnesium supplements and lactulose are alternate stool softeners that are generally safe for regular use in most patients (you should ask your doctor though) ??? Bisacodyl (Dulcolax) and senna (Senokot) are stimulant laxatives for occasional use only (they may lead to dependency with regular long-term use) ??? Enemas and bowel preparations (e.g. Golytely) can be used to treat severe stool impaction ---- this is called ???rescue therapy?? . Drink 2 litres in 4 hours in the evening then take another 2 litres over 4 hours the next morning. ??? Alternately, you can mix 14 capfuls of Miralax with 64 oz (2 litres) of Gatorade. Drink half over 2 hours in the evening then take the rest over 2 hours the next morning. ??? After rescue therapy immediately begin aggressive ???maintenance therapy?? with the therapies above. Bloating/Pain ??? Ensure constipation is completely treated - ongoing constipation is one of the most common causes for refractory pain and bloating in patients with a history of constipation ??? Heating pad or hot-water bottle, exercise, , warm bath or shower, and warm beverages are all good treatments for painful bloating episodes ??? Simethicone (Gas-X) can be helpful for occasional usage for painful bloating ??? Peppermint oil may also be useful; a capsule form exists (IBgard) ??? Tumeric may help with pain and bloating in some patients ??? Acetominophen (Tylenol) is safest analgesic (pain reliever) on the GI tract ??? NSAIDs (e.g. ibuprofen) can cause gut irritation/inflammation - it's best to use this type of pain reliever in low doses and frequency only ??? While medical cannabis has been used to treat a variety of chronic pain disorders it has not been rigorously studied in functional disorders and may actually worsen symptoms in some patients. At this point we do NOT recommend using medical cannabis to treat functional disorders ??? AVOID narcotics/opioids as they typically make symptoms much worse and there is a risk of addiction and/or dependence Heartburn/Nausea/Vomiting/Dyspepsia ??? Weight loss, elevation of the head of the bed frame, cutting back on nicotine/alcohol/caffeine/fatty foods, and avoiding eating or drinking prior to bed may help with reflux symptoms ??? OTC antacids can be used for mild and/or infrequent reflux symptoms ??? Acid reducing medications such as proton-pump inhibitors (PPIs) and H2 blockers are effective atrelieving reflux if persistent and bothersome symptoms despite dietary and lifestyle measures ??? Martha and vitamin B6 may help with nausea ??? L-carnitine, riboflavin, and coenzyme Q10 supplements have been reported to help some patients with chronic nausea and vomiting ??? Turmeric, capsaicin, and FDgard (combination of peppermint and brian) may help with after-mealbloating, fullness and discomfort ??? If using cannabis (recreational or medical) consider stopping for at least a full month. While cannabis has been reported to help some patients with nausea, it may actually contribute to symptoms in some patients. Disclaimer ??? This information is intended for educational purposes only ??? It is not meant to replace direct patient-doctor care ??? All medications should be used under the supervision of a Gastroenterology provider ([facility] or ) or Primary Care Provider ??? Authors are not liable for misuse/misinterpretation of this information Patient Resources [place] [employer] https://www.gastro.org/practice-guidance/nw-qbdfjeo-pjwuev/t opic/rbsrwbqfs-symos-pchmmaqh-ibs Badgut.org https://badgut.org/information-centre/v-v-zysezpwcr-topics/ibs/ AboutIBS.org https://www.aboutibs.org/ [employer]com https://www.[employer]todate.com/contents/soeyvmpqu-jhaox-bapcbtmz-ehcxic-rfq-ddwsrl documented in this encounter Progress Notes Alvaro Ewing MD - 04/28/2021 3:00 PM EDT Chief Complaint: Sonny Hilton is a 40 y.o. patient referred for consultation by Dr. Sy for abdominal pain. Referred for second opinion History of Present Illness: 40 y.o. male with depression, chronic back pain, dyslipidemia, asthma, chronic opioid dependence, generalized anxiety disorder, rhinitis He describes onset of LUQ pain 4/12 ago - sudden onset - thought initially maybe due to lifting toddler out of crib. Describes as dull ache. Near constant pain since then - worse in certain positions -better if lying flat. Overall non- progressive but not improving. Also seems to be worse with eating in general. No change with BM. No medication changes prior to onset. Chronic variable bowel pattern - historically both prolonged periods of diarrhea or constipation or both. Recently been more constipated. Currently a hard BM every 2 days. Associated prolonged toilet type and straining. Occasional sensation of incomplete emptying. He has issues with his GI tract dating back to childhood. In elementary school he would take laxatives and fast before sports or he would have severe abdominal cramping. He has been sensitive to certain foods while growing up. He had also been having outlet type bleeding. Settled since January. This has generated a great deal of anxiety for him. Rare heartburn No dysphagia. Occasional nausea but no vomiting and no dyspepsia. Appetite stable. Weight increasing. He was seen by the local general surgery service and had upper and lower endoscopy January 2021 as per referral notes. A tubular adenoma was found in the colon as per referral notes. He had mild esophagitis and gastritis as per the referral notes. He had a CT abdomen and pelvis which was also normal as per referral notes. He is on chronic opioids. He takes NSAIDs regularly. Current Regimen: nil Past Therapies: Omeprazole 40 mg once a day - resolved heartburn Review of systems: 14-system ROS reviewed and negative except as above Medications: Outpatient Medications Prior to Visit Medication Sig Dispense Refill ??? budesonide (RHINOCORT AQUA) 32 mcg/actuation [place], Non-Aerosol 1 spray by Nasal route daily. 1 Bottle 3 ??? buPROPion (WELLBUTRIN) 75 mg Tablet Take 37.5 mg by mouth daily. ??? escitalopram (LEXAPRO) 20 mg Tablet 1 ??? PROAIR HFA 90 mcg/actuation HFA Aerosol Inhaler INHALE 1 TO 2 PUFFS BY MOUTH EVERY 4 HOURS NEEDED 1 ??? atorvastatin (LIPITOR) 40 mg Tablet 0 ??? ibuprofen (ADVIL;MOTRIN) 600 mg Tablet Take 600 mg by mouth every 6 hours as needed for Pain. No facility-administered medications prior to visit. Allergies: is allergic to penicillins and sulfur. Past Medical History: has a past medical history of Herniation of lumbar intervertebral disc with radiculopathy (10/24/2018). Past Surgical History: has no past surgical history on file. Family History: family history is not on file. No denies family history of colon cancer, IBD, or celiac disease in mother father or other family members Social History: reports that he quit smoking about 4 years ago. His smoking use included cigarettes.He has a 40.00 pack-year smoking history. He has never used smokeless tobacco. Physical Exam: VITAL SIGNS: There were no vitals taken for this visit. BMI: There is no height or weight on file to calculate BMI. Gen: nad, normal body habitus Eyes: no scleral icterus CV: rrr, no m/r/g, radial pulse 2+, no pedal edema Pulm: ctab, normal respiratory effort GI: soft without masses, nontender, nondistended, normoactive bowel sounds, no hernias Skin: warm, dry, no rashes, no induration Neurologic: intact to light touch Psych: appropriate affect, a+ox3 Questionnaire: No flowsheet data found. Laboratory studies, imaging, and procedures (my review of prior records): See above Assessment/Plan: Mr. Hilton is a 40 y.o. patient with the following issues: 1. LUQ pain 4/12 ago - Near constant pain since then - worse in certain positions - better if lying flat. Overall non-progressive but not improving. Also seems to be worse with eating but no change with BM. Sudden onset and positional component and relatively localized pain are all suggestive of abdomi nal wall pain but he did not have a positive Carnett's sign on exam. His anxiety about the pain is likely a contributing factor to the impact on him (he describes thinking about this all day long). Gastritis/functiona dypsepsa could be contributing as well - worse with eating and does take regular NSAIDs. Constipation could be contributing to pain as well. 2. Chronic variable bowel pattern - historically both prolonged periods of diarrhea or constipation or both. Recently been more constipated but no recent dramatic change. Currently a hard BM every 2 days. Associated prolonged toilet type and straining. Occasional sensation of incomplete emptying. Thisis consistent with IBS-C and opioid induced constipation. Suspected component of dyssynergic defecation. 3. Outlet type bleeding - has settled since colonoscopy. Likely hemorrhoids/fissure. 4. Colonic polyp 5. Anemia as per patient - I did not see this in his faxed notes. Possibly due to blood loss from outlet bleeding. Recommendations: We discussed GI functional/motility disorders in depth today including pathophysiology, expected course, impact and treatment categories We also discussed realistic goals (with emphasis on improved quality of life) and patient responsibilities. Please see the patient handout for recommendations on general treatment measures including lifestyle, dietary, and non-prescription pharmacologic options. I will arrange a comprehensive evaluation of the structure and function of the patient's GI tract including the following investigations +/- referrals: EGD Colonoscopy Bloodwork - anti-TTG, TSH, CBC, ferritin Consider repeat CT abdomen and pelvis if refractory Consider Smartpill Consider anorectal manometry Referral to GI psychology to work on specific psychologic measures for functional disorders Cut back/eliminate NSAIDs. Continue with tapering off methadone - may improve bowel pattern. PCP can consider PAMORA medication. Start taking miralax as directed Work on conservative measures for abdominal MSK injuries including rest, strengthening exercises, cold/heat, and simple analgesics. Consider trigger point injection if refractory. I will arrange a follow-up appointment after the above investigations to review the results and consolidate the diagnosis. Please note that generally specific treatment recommendations will not be discussed at that time. An additional follow-up appointment with a motility MACHINE ROPE MAKER will be scheduled after this appointment to discuss specific recommendations for management. Patients should continue to work on general measures provided in our handout while awaiting this appointment. We also discussed the consultative nature of the [facility] GI motility program. The patient should continue to work with their PCP +/- local GI as the primary point(s) of contact for urgent issues, medication refills and adjustments as needed for continuity of care purposes in between visits to our center based on the recommendations above. Recommend PCP to refer to local GI if patient does not have a local GI currently. Yearly or bi-yearly visits with a member of the motility team may be available for co-management purposes depending upon the specific circumstances of the patient's medical condition. We discussed that complete symptom relief may not be a fully achievable goal for this chronic condition, but that improvement in quality of life, healthy days at work and family functions, and also general symptom improvement may be more reasonable goals. We discussed that treatments should be tried individually and for periods of at least 4-8 weeks to truly assess symptom response. I did my best to answer questions to the fullest ability. We discussed that recommended treatments should be tried individually for at least three months at a time to truly assess for a meaningful response, or as long as tolerated, before changing therapy. RTC with me in after testing completed TIME SPENT WITH PATIENT Time spent reviewing records prior to this encounter on day of appointment: 10 minutes Time spent during encounter with patient including counselin minutes Time spent documenting encounter after office visit: 10 minutes Alvaro Ewing MD [facility] [place] [id number] documented in this encounter Miscellaneous Notes Addendum Note - Kalyani Kuhn - 04/28/2021 3:00 PM EDT Addended by: KALYANI KUHN on: 04/28/2021 04:09 PM Modules accepted: Orders documented in this encounter Plan of Treatment Upcoming Encounters Date Type Specialty Care Team Description 07/22/2022 Office Visit Dermatology Mt Henderson MD [facility] ER DR HUBERT MULTANI-DERMAT [place], [place] [address] (Wo rk) Scheduled Orders Name Type Priority Associated Diagnoses Order S chedule ENDOSCOPY CASE Procedures Routine Irritable bowel Ordered: 0 04/28/2021 REQUEST: EGD, UPPER GI syndrome, unspecif ied ENDOSCOPY, type COLONOSCOPY, Functional dyspe psia DIAGNOSTIC Anemia, unspecified type Scheduled Referrals Name Type Priority Associated Diagnoses Order S chedule Referral to Outpatient Referral Routine Irritable bowel Order ed: Behavioral Health syndrome, 04/28/2021 unspecified type documented as of this encounter Procedures Procedure Name Priority Date/Time Associated Comments Diagnosis HC THYROID STIMULATING Routine 04/28/2021 4:20 Irritable bowel Results for this HORMONE, SERUM PM EDT syndrome, procedure are in unspecified type the results Functional section. dyspepsia Anemia, unspecified type HEMOGRAM Routine 04/28/2021 4:20 Irritable bowel Results f or this PM EDT syndrome, procedure are i n unspecified type the results Functional section. dyspepsia Anemia, unspecified type DIFFERENTIAL, AUTOMATED Routine 04/28/2021 4:20 Irritable marla l Results for this PM EDT syndrome, procedure are i n unspecified type the results Functional section. dyspepsia Anemia, unspecified type HC TISSUE Routine 04/28/2021 4:20 Irritable bowel Results f or this TRANSGLUTAMINASE AB PM EDT syndrome, procedur e are in unspecified type the results Functional section. dyspepsia Anemia, unspecified type HC CBC,PLT & AUTO DIFF Routine 04/28/2021 4:20 Irritable bowel PM EDT syndrome, unspecified type Functional dyspepsia Anemia, unspecified type HC IGA, SERUM Routine 04/28/2021 4:20 Irritable bowel Results for this PM EDT syndrome, procedure are i n unspecified type the results Functional section. dyspepsia Anemia, unspecified type HC IGG, SERUM Routine 04/28/2021 4:20 Irritable bowel Results for this PM EDT syndrome, procedure are i n unspecified type the results Functional section. dyspepsia Anemia, unspecified type HC FERRITIN, SERUM Routine 04/28/2021 4:20 Anemia, unspecified Results for this PM EDT type procedure are i n the results section. documented in this encounter Results Differential, Automated (04/28/2021 4:20 PM EDT) P athologist Signature Neutrophils % 59.4 % [facility] Neutr Abs (ANC) 5.00 1.70 - [facility] 6.10 [facility] x10(3)/[facility] LABORATORY Lymphocytes % 26.8 % [facility] Lymphocytes Abs 2.3 0.9 - 3.2 [facility] x10(3)/[facility] LABORATORY Monocytes % 9.4 % [facility] Monocyte Abs 0.8 0.3 - 0.9 [facility] x10(3)[facility] LABORATORY Eosinophils % 3.2 % [facility] Eosinophils Abs 0.3 0.0 - 0.4 [facility] x10(3)[facility] LABORATORY Basophils % 0.8 % [facility] Basophils Abs 0.1 0.0 - 0.1 [facility] x10(3)/[facility] LABORATORY Immature Gran % 0.40 % [facility] Comment: Immature granulocytes(IG's)percentage an d absolute count will include metamyelocytes, myelocytes, and promyelo cytes. Blood smears from CBCs yielding IG's will be scanned manually for concor dance. If this scan disagrees with the automated IG or if promyelocytes are not ed, a manual differential will be performed. Alka Gran Abs 0.03 0.00 - 0.04 x10(3)/[facility] MAR Y [facility] LAB[facility]ATORY Specimen Anatomical Collection Method Collection Time Receive d Time (Source) Location / / Volume Laterality Blood 04/28/2021 4:20 PM 4:20 EDT PM EDT Resulting Agency Comment Spec In Lab Alvaro Ewign MD HEMATOLOGY ORDERABLES Performing Organization Address City/State/[place] [address] (ABNORMAL) Hemogram (04/28/2021 4:20 PM EDT) Analysis Performed At Patho logist Time Signature WBC 8.4 4.0 - 9.5 [facility] x10(3)/[facility] LABORATORY RBC 4.10 (L) 4.58 - [facility] x10(6)/[facility] LABORATORY Hemoglobin 12.5 (L) 13.7 - [facility] 16.5 gm/dL [facility] Hematocrit 36.1 (L) 40.5 - [facility] 48.5 % [facility] MCV 88.0 82.9 - [facility] 93.1 [facility] LABORATORY MCH 30.5 27.5 - [facility] 32.1 pg [facility] MCHC 34.6 32.0 - [facility] 35.7 gm/dL [facility] Platelets 221 145 - 357 [facility] x10(3)/[facility] LABORATORY RDWSD 38.8 36.0 - [facility] 45.0 [facility] LABORATORY RDWCV 12.1 11.4 - [facility] 13.8 % [facility] MPV 9.6 7.6 - 12.9 [facility] LABORATORY nRBC % Auto 0.0 % [facility] nRBC Abs Auto 0.000 0.000 - [facility] 0.000 [facility] x10(3)/[facility] LABORATORY Specimen Anatomical Collection Method Collection Time Receive d Time (Source) Location / / Volume Laterality Blood 04/28/2021 4:20 PM 4:20 EDT PM EDT Resulting Agency Comment Spec In Lab Alvaro Ewing MD HEMATOLOGY ORDERABLES Performing Organization Address City/[facility]/[place] [address] Ferritin (04/28/2021 4:20 PM EDT) athologist Signature Ferritin 306 30 - 400 DUONG COATES[place] ng/mL [facility] Comment: Pediatric reference ranges not verified at [facility], interpret with caution. Reference ranges for females greater lottie n 50 years of age approach values for men, i.e., 30-400 ng/mL. Specimen Anatomical Collection Method Collection Time Receive d Time (Source) Location / / Volume Laterality Blood 04/28/2021 4:20 PM 4:20 EDT PM EDT Resulting Agency Comment Spec In Lab Alvaro Ewing MD CHEMISTRY ORDERABLES Performing Organization Address City/[facility]/ZIP Code Phon e Number [address] Tissue transglutaminase, IgA (04/28/2021 4:20 PM EDT) athologist Signature TTG IgA Ab 0.4 0.1 - 10.0 [place] u/ml [facility] Comment: Negative = <7 U/mL Equivocal = 7-10 U/mL Positive = >10 U/mL Specimen Anatomical Collection Method Collection Time Receive d Time (Source) Location / / Volume Laterality Blood 04/28/2021 4:20 PM 1 7:29 EDT AM EDT Resulting Agency Comment Spec In Lab Alvaro Ewing MD IMMUNOLOGY ORDERABLES Performing Organization Address City/[facility]/[place] [address] IgG (04/28/2021 4:20 PM EDT) athologist Signature IgG 818 700 - 1,600 DUONG COATESNU mg/dL [facility] Comment: Pediatric Reference Intervals obtained f rom the Caliper Reference Interval project. http://www.sickkids.ca/caliperp roject/index.html Specimen Anatomical Collection Method Collection Time Receive d Time (Source) Location / / Volume Laterality Blood 04/28/2021 4:20 PM 1 4:20 EDT PM EDT Resulting Agency Comment Spec In Lab Alvaro Ewing MD IMMUNOLOGY ORDERABLES Performing Organization Address City/[facility]/ZIP Code Phon e Number [address] IgA (04/28/2021 4:20 PM EDT) P athologist Signature IgA 140 70 - 400 DUONG JUDGE mg/dL [facility] Specimen Anatomical Collection Method Collection Time Receive d Time (Source) Location / / Volume Laterality Blood 04/28/2021 4:20 PM 1 4:20 EDT PM EDT Resulting Agency Comment Spec In Lab Alvaro Ewing MD IMMUNOLOGY ORDERABLES Performing Organization Address City/[facility]/[place] [address] TSH [place] (04/28/2021 4:20 PM EDT) athologist Signature TSH 2.50 0.27 - 4.20 DUONG JUDGE mcIU/mL [facility] Comment: Reference Interval (mcIU/mL): Females: ??First Trimester: 0.23-3.88 ??Second Trimester: 0.22-3.90 ??Third Trimester: 0.44-4.66 Specimen Anatomical Collection Method Collection Time Receive d Time (Source) Location / / Volume Laterality Blood 04/28/2021 4:20 PM 1 4:20 EDT PM EDT Resulting Agency Comment Spec In Lab Alvaro Ewing MD CHEMISTRY ORDERABLES Performing Organization Address City/[facility]/ZIP [facility] Phon e Number [address] documented in this encounter Visit Diagnoses Diagnosis Irritable bowel syndrome, unspecified ty pe Functional dyspepsia Dyspepsia and other specified disorders of function of stomach Anemia, unspecified type documented in this encounter Care Teams Glass Etcher Helper Relationship Specialty Start Date End Date Lara Sy APRN PCP - General Internal Medicine 10/09/[address] [place] [address] [place] [address] documented as of this encounter
--- OUTSIDE RECORDS SUMMARY | 2022-06-04 02:11 | XMS_ITS | Encounter Summary ---
:1980 Author Organization [facility] [place] [address] Care Team Providers Name Role Phone Lara Sy APRN Primary Care Provider Encounter Details Date Type Department Care Team Description 05/14/2021 Telephone Gastroenterology at [facility] Omar Martinez [facility] [place] [address] Social History Tobacco Use Types Packs/Day Years Used Date Former Smoker Cigarettes 2 20 Quit: 2017 Smokeless Tobacco: Never Used Alcohol Use Standard Drinks/Week Comments Not Currently 0 (1 standard drink = 0.6 oz pure alcoho l) Sex Assigned at Date Recorded Male 09/21/2021 8:23 AM EST documented as of this encounter Miscellaneous Notes Telephone Encounter - Omar Martinez RN - 05/14/2021 8:59 AM EDT Patient calls the office leaving a message on the RN voicemail stating that he was notified by the pharmacy that Dr. Ewing prescribed a medication on 04/28/21, but I do not know what this is for. Returned call to the patient to discuss above, but was unable to reach patient by phone, left message on voicemail making him aware that this show card writer would send a [facility] message through the portal or he can give the office a call back. documented in this encounter Plan of Treatment Upcoming Encounters Date Type Specialty Care Team Description 07/22/2022 Office Visit Dermatology Mt Henderson MD [facility] [address] HUBERT MULTANI-DERMAT [place], [place] [address] (Wo rk) documented as of this encounter Visit Diagnoses Not on filedocumented in this encounter Care Teams Sales Representative Public Utilities Relationship Specialty Start Date End Date Lara Sy APRN PCP - General Internal Medicine 10/09/[address] [place] [address] documented as of this encounter
--- OUTSIDE RECORDS SUMMARY | 2022-06-04 02:11 | XMS_ITS | Encounter Summary ---
:1980 Author Organization [facility] [place] [address] Care Team Providers Name Role Phone Lara Sy APRN Primary Care Provider Encounter Details Date Type Department Care Team Description 08/18/2021 Telephone Gastroenterology at [facility] [place] [address] Social History Tobacco Use Types Packs/Day Years Used Date Former Smoker Cigarettes 2 20 Quit: 2017 Smokeless Tobacco: Never Used Alcohol Use Standard Drinks/Week Comments Not Currently 0 (1 standard drink = 0.6 oz pure alcoho l) Sex Assigned at Date Recorded Male 09/21/2021 8:23 AM EST documented as of this encounter Miscellaneous Notes Telephone Encounter - Sarah Andrews - 08/18/2021 10:43 AM EST Patient returned Zo's called about scheduling with the Behavioral Referral team. He is not interested at this time making that appointment. documented in this encounter Plan of Treatment Upcoming Encounters Date Type Specialty Care Team Description 07/22/2022 Office Visit Dermatology Mt Henderson MD [facility] DR HUBERT MULTANI-DERMAT [place], [place] [address] (Wo rk) documented as of this encounter Visit Diagnoses Not on filedocumented in this encounter Care Teams Software Sales Consultant Relationship Specialty Start Date End Date Lara Sy APRN PCP - General Internal Medicine 10/09/[address] [place] [address] documented as of this encounter
--- OUTSIDE RECORDS SUMMARY | 2022-06-04 02:11 | XMS_ITS | Encounter Summary ---
:1980 Author Organization [facility] [place] [address] Care Team Providers Name Role Phone Lara Sy APRN Primary Care Provider Reason for Visit Reason Onset Date Comments Reminder Appointment 10/08/2021 Encounter Details Date Type Department Care Team Description 10/08/[address] [facility] Hannah, Jennifer Appointment [facility] [place] [address] Social History Tobacco Use Types Packs/Day [...] this encounter Miscellaneous Notes Telephone Encounter - Barbi Young LNA - 10/08/2021 8:24 AM EST Called patient to review medications and allergies for their upcoming gastroenterology Type of Appointment: Telehealth appointment. Reach Patient during MA Check: Yes Notes for the provider: Notes for the nurse: documented in this encounter Plan of Treatment Upcoming Encounters Date Type Specialty Care Team Description 07/22/2022 Office Visit Dermatology Mt Henderson MD [facility] ER [address] HUBERT MULTANI-DERMAT [place], [place] [address] (Wo rk) documented as of this encounter Visit Diagnoses Not on filedocumented in this encounter Care Teams Riprap Worker Relationship Specialty Start Date End Date Lara Sy APRN PCP - General Internal Medicine 10/09/[address] [place] [address] documented as of this encounter
--- OUTSIDE RECORDS SUMMARY | 2022-06-04 02:11 | XMS_ITS | Encounter Summary ---
:1980 Author Organization [facility] [place] [address] Care Team Providers Name Role Phone Lara Sy APRN Primary Care Provider Encounter Details Date Type Department Care Team Description 06/12/2021 [facility] [place] [address] Social History Tobacco Use Types Packs/Day Years Used Date Former Smoker Cigarettes 2 20 Quit: 2017 Smokeless Tobacco: Never Used Alcohol Use Standard Drinks/Week Comments Not Currently 0 (1 standard drink = 0.6 oz pure alcoho l) Sex Assigned at Date Recorded Male 09/21/2021 8:23 AM EST documented as of this encounter Miscellaneous Notes Telephone Encounter - Demian December - 06/12/2021 10:46 AM EDT Sonny Hilton [id number] Diagnosis/Indication: Abdominal pain 1. Have you ever had a/an Upper Endoscopy & Colonoscopy before? Yes: Date [facility] 2020 If yes, did you have any problems with the procedure? No What type of sedation was used: Other: UNKNOWN 2. Do you take any blood thinners or have you been diagnosed with a bleeding disorder that increasesyour risk of bleeding with procedures? No 3. Do you have a Pacemaker or Defibrillator device? No 4. Are you a diabetic? No 5. Do you have any Allergies to Eggs, Latex or Medications? Yes: see EDH 6. Do you take any Oral Iron Supplements (Including multi-vitamins)? No 7. Do you have a history of three or more abdominal surgeries? No 8. Have you had a problem with sedation or anesthesia? No 9. Do you use a c-pap machine or oxygen tank? Neither 10. Do you take prescription narcotic pain medications, including suboxone or methodone? Yes 11. Do you have a preference regarding the gender of your provider? Yes: Male Dr. Ewing 12. Is there any other information you would like to us to note for the provider and nursing team who will perform your case? No 13. Say to patient: You must have a responsible alliance party who will drive you to your procedure, stay on campus for the entire duration of your procedure, and drive you home from your procedure? *Please Verify the height and weight, and adjust if height and/or weight have changed* Estimated body mass index is 32.12 kg/m?? as calculated from the following: Height as of 04/28/21: 175.3 cm (5' 9). Weight as of 04/28/21: 98.7 kg (217 lb 8 oz). Age:40 y.o. documented in this encounter Plan of Treatment Upcoming Encounters Date Type Specialty Care Team Description 07/22/2022 Office Visit Dermatology Mt Henderson MD [facility] ER DR HUBERT MULTANI-DERMAT [place], [place] [address] (Wo rk) documented as of this encounter Visit Diagnoses Not on filedocumented in this encounter Care Teams Commercial Specialist Relationship Specialty Start Date End Date Lara Sy APRN PCP - General Internal Medicine 10/09/[address] [place] [address] documented as of this encounter
--- OUTSIDE RECORDS SUMMARY | 2022-06-04 02:11 | XMS_ITS | Encounter Summary ---
:1980 Author Organization [facility] [place] [address] Care Team Providers Name Role Phone Lara Sy Jono BRO Primary Care Provider Reason for Visit Reason Comments Follow-up Encounter Details Date Type Department Care Team Description 06/02/2022 Office Visit Dermatology at [facility] llergic contact dermatitis due to adhesives; Road Dermatitis [address] [place] [address] [facility] [place], [place] [address] Social History Tobacco Use Types Packs/Day Years [...] AM EST documented as of this encounter Progress Notes Mt Henderson MD - 06/02/2022 8:20 AM EDT Images from the original note were not included. DEPARTMENT OF DERMATOLOGY Medical Dermatology Clinic Provider: Mt Henderson MD Patient's preferred name Sonny Preferred contact method for results []myDH []Letter [x]Phone: cell Detailed phone message OK? yes Are there any other people with whom we may discuss your care? PAST MEDICAL HISTORY If no, type N. If yes, type date, location, treatment Melanoma no Dysplastic nevi no SCC no BCC no AKs no UV Exposure & Protection Sun Protection: does not wear Other relevant past medical history (i.e. 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 If yes, include details below Allergy to lidocaine, epinephrine, Dermabond, chlorhexidine, or adhesives: no Bleeding disorder or blood thinners: no Pacemaker, defibrillator, deep brain stimulator, cochlear implant: no History of Present Illness: Sonny Hilton is a 41 y.o. year old. Patient is new and self-referred to the clinic for the following: - tick bite to thigh mid March 2022, pulled tick out. Dr burton on prednisone (couple weeks worth of 20mg pills) and doxycycline(end of March). was very itchy, scrotum became like elephant skin, initallythought to be jock itch and was treating with cream, and was weeping, then spread to bilateral elbows, then wrists, then behind knees, belly button. Was treating sites with neosporin and Benadryl. - also has adhesive allergy after electrodes placed from sleep study Medications: Reviewed in eD-H Allergies: Reviewed in eD-H Skin Examination: Full skin examination: Patient asked to undress to their comfort level. Verbalized that the provider's preference is that patient removal all clothing and that the provider will not examine areas patient elects to keep covered. Examination of the scalp, hair, head, face, ears, neck, chest, axillae, abdomen, back, buttocks, genitalia, and upper and lower extremities. Assessment/Plan # History of tick bite scattered pink papules, vaguely coalescing into a plaque on the right medial thigh - Previously treated with doxycycline, no concern for tick bourne illness, will continue to monitor. # Id reaction, scattered pink papules on volar wrist and belly button - Start Rx triamcinolone 0.1% cream: Apply a pea size amount to the face nightly. As it can be irritating, start 2-3 times per week and slowly increase to nightly use. Can also mix with a bland moisturizer to help with irritation. - Information provided on sensitive skin care. - Discussed possibility of scabies, performed mineral oil prep with scraping of all involved sites # Eczematous dermatitis; bright red scaly plaque on the dorsum of the right foot (Figure 1) - ELVIA negative. - Start Rx clobetasol 0.05% cream: Apply topically to affected area(s) on the right foot twice dailyfor up to 2 weeks. Take 1 week off and then repeat cycle as needed. # Contact allergy s/p adhesive on the central chest are well demarcated bright pink plaques at sitesof previous adhesive application - Start Rx clobetasol 0.05% cream: Apply topically to affected area(s) on the chest twice daily for up to 2 weeks. Take 1 week off and then repeat cycle as needed. Photo was taken and charted with patient's verbal consent. Other items to document in the assessment/plan if relevant ??? N/A RTC: 4-6 weeks for dermatitis []Note routed to lower school music teacher []Recall has been placed in scheduling system []Appointment scheduled at checkout Scribe attestation: Destiny Davalos RN who has performed the documentation for this encounter in the presence of and acting as a scribe for Mt Henderson MD. I performed the above scribed service and agree with the accuracy of the documentation in this encounter. Reviewed and signed by: Mt Henderson MD Dermatology [facility] Patient seen and evaluated with staff global account director: Loretta Montenegro MD Department of Dermatology [facility] Loretta Montenegro MD - 06/02/2022 8:20 AM EDT I directly supervised Dr. Henderson during this office visit. Dr. Henderson presented the history and physical exam to me. I then saw and examined this patient with Dr. Henderson . We reviewed the history and pertinent details and I confirmed the physical findings. I agree with the details of the history and physical exam as documented in Dr. Henderson's note. LORETTA MONTENEGRO MD Staff Physician documented in this encounter Miscellaneous Notes Addendum Note - Loretta Montenegro MD - 06/02/2022 8:20 AM EDT Addended by: LORETTA MONTENEGRO on: 06/03/2022 07:24 AM Modules accepted: Level of Service documented in this encounter Plan of Treatment Upcoming Encounters Date Type Specialty Care Team Description 07/22/2022 Office Visit Dermatology Mt Henderson MD [facility] [address] HUBERT MULTANI-DERMAT [place], [place] [address] (Wo rk) documented as of this encounter Visit Diagnoses Diagnosis Allergic contact dermatitis due to adhes lucy Contact dermatitis and other eczema due to other chemical products Dermatitis Contact dermatitis and other eczema, due to unspecified cause documented in this encounter Care Teams Senior Buyer Planner Relationship Specialty Start Date End Date Lara Sy APRN PCP - General Internal Medicine 10/09/[address] [place] [address] documented as of this encounter
--- OUTSIDE RECORDS SUMMARY | 2022-06-04 02:11 | XMS_ITS | Encounter Summary ---
:1980 Author Organization [facility] [place] [address] Care Team Providers Name Role Phone Lara Sy APRN Primary Care Provider Reason for Visit Reason Comments Establish Care HAD SURGERY APPROX. 3 MONTHS AGO and still having difficulty breathing and congestion, Consultation (Routine) - Closed Specialty Diagnoses / Procedures Referred By Contact Refer red To Contact Otolaryngology Diagnoses hypertrophy of nals turbinates nasal septal deviation nasal obstruction Lara Sy, Kan Aaron III, [address], MD [facility] [address] [place] [address] Phone: Fax: Referral ID Status Reason Start Date Expiration Date Visits V isits Requested Authorized [id number] Closed Consult, 10/09/2018 10/09/2019 1 1 [facility] Encounter Details Date Type Department Care Team Description 11/17/2018 Office Visit Otolaryngology at [facility] (deviated nasal septum); [facility] Laurel fernandez III, MD Chronic rhinitis; [place] [address] [facility] Nasal crusting [phone] [facility] [place], [place] [address] Social History Tobacco Use Types Packs/Day Years Used Date Former Smoker Cigarettes 2 20 Quit: 2017 Smokeless Tobacco: Never Used Sex Assigned at Date Recorded Male 09/21/2021 8:23 AM EST documented as of this encounter Last Filed Vital Signs Vital Sign Reading Time Taken Comments Blood Pressure 149/79 11/17/2018 8:55 AM EDT Pulse 77 11/17/2018 8:55 AM EDT Temperature 37 ??C (98.6 ??F) 11/17/2018 8:55 AM EDT Respiratory Rate 20 11/17/2018 8:55 AM EDT Oxygen Saturation 100% 11/17/2018 8:55 AM EDT Inhaled Oxygen Concentration - - Weight 88 kg (194 lb) 11/17/2018 8:55 AM EDT Height 177.8 cm (5' 10) 11/17/2018 8:55 AM EDT Body Mass Index 27.84 11/17/2018 8:55 AM EDT documented in this encounter Progress Notes Kan Templeton III, MD - 11/17/2018 9:00 AM EDT Otolaryngology Outpatient Consultation Note This note created with [employer] speech recognition software. Date of Visit: 11/17/2018 Location of Visit: Otolaryngology Clinic, [facility] Patient: Sonny Hilton ([id number]; 1980) Primary Care Provider: Lara Sy APRN Referring Provider: Lara Sy Reason for Visit: Sonny is a 38 y.o. male seen at the request of Lara Sy in consultation for nasla obstruction. History of Present Illness: Sonny reports that he has had nasal obstruction due to a deviated nasal septum for his entire life, and was never able to breathe through his nose. About two months ago he underwent septoplasty and turbinate reduction at a different institution, and he is unhappy with the result, feeling his nose is still stuffy and he continues to breathe through his nose. Past Medical History: Past Medical History: Diagnosis Date ??? Herniation of lumbar intervertebral disc with radiculopathy 10/24/2018 L4-5 right far lateral Past Surgical History: No past surgical history on file. Medications: Current Outpatient Medications on File Prior to Visit Medication Sig Dispense Refill ??? buPROPion (WELLBUTRIN) 75 mg Tablet Take [...] every 6 hours as needed for Pain. ??? [DISCONTINUED] busPIRone (BUSPAR) 7.5 mg Tablet take 1 tablet by mouth twice a day 0 ??? [DISCONTINUED] azithromycin (ZITHROMAX) 250 mg Tablet TAKE DIRECTED ON PACK 0 No current facility-administered medications on file prior to visit. Allergies: Penicillins and Sulfur Social History: [place] in [place] [id number], Tobacco:Quit 2016 Alcohol:yes Other: Immunizations UTD. Family History: No family history on file. Review of Systems: Pertinent positive findings discussed above. No other findings on review of constitutional, visual, cardiovascular, respiratory, gastrointestinal, genitourinary, musculoskeletal, dermatologic, neurological, psychiatric, endocrine, hematologic or immunologic systems. Physical Examination: Vitals: Blood pressure 149/79, pulse 77, temperature 37 ??C (98.6 ??F), resp. rate 20, height 177.8 cm (5' 10), weight 88 kg (194 lb), SpO2 100 %. General: No acute distress. Face: Full and symmetric facial movement. No dysmorphic facial features. Eyes: Periocular structures and conjunctiva healthy without lesions. Pupils are equal, round, and reactive to light. Extraocular movement is full and intact. No dysconjugate gaze. No evidence of nystagmus. Ears: Auricles symmetric without lesions. External auditory canals clear. Right tympanic membrane normal, right middle ear normal. Left tympanic membrane normal, left middle ear normal. Nose: Patent anteriorly with adequate airflow, severe rhinitis. Septum is midline without significant deviation. Inferior turbinates crusting R>L. Mouth: Lips and gingiva pink, moist, without lesions. Dentition healthy. Tongue and floor of mouth soft without lesions or masses. Hard palate without lesions. Pharynx: Soft palate without lesions. Uvula is intact. Oropharynx symmetric. Larynx: Vocal mobility and morphology normal. Neck: Soft, supple, without significant lymphadenopathy. Thyroid gland without masses or asymmetry. Trachea midline without deviation. Lymphatic: Negative for additional peripheral lymphadenopathy or lymphedema. Neurologic: Cranial nerves II-XII intact and symmetric. Procedure -Nasal Endoscopy Topical anesthetic applied to the nasal cavity. Patient tolerated the procedure well without complication. Findings: Nasal Cavity: Right nasal crusting, floor of nose and inferior turbinate, marked rhinitis. Airway otherwise patent. Nasopharynx: Normal Impression: Rhinitis and nasal crusting are current chief cause of nasal obstruction. Recommendations: Rhinocort, 2 sprays twice per day, and Juan M med sinus rinse twice per day, humidification at home. I emphasized that his mouth breathing habit is long standing and will disappear over time. There does not appear to be any problem with his post-op result otherwise, and if we can get the crusting and rhinitis under control he will note the improvement. We will see him again in 4 weeks for recheck. documented in this encounter Plan of Treatment Upcoming Encounters Date Type Specialty Care Team Description 07/22/2022 Office Visit Dermatology [place] MD [facility] [address] HUBERT MULTANI[place]DERMAT [place], [place] [address] (Wo rk) documented as of this encounter Visit Diagnoses Diagnosis DNS (deviated nasal septum) Deviated nasal septum Chronic rhinitis Nasal crusting Other diseases of nasal cavity and sinus es documented in this encounter Care Teams Equipment Services Associate Relationship Specialty Start Date End Date Lara Sy APRN PCP - General Internal Medicine 10/09/[address] [place] [address] documented as of this encounter
--- OUTSIDE RECORDS SUMMARY | 2022-06-04 02:11 | XMS_ITS | Encounter Summary ---
:1980 Author Organization [facility] [place] [address] Care Team Providers Name Role Phone Lara Sy APRN Primary Care Provider Encounter Details Date Type Department Care Team Description 09/22/2021 Hospital Encounter [facility]ology at [facility] [place] [address] [place] [address] [place] [address] Social History Tobacco Use Types Packs/Day [...] Sign Reading Time Taken Comments Blood Pressure 85/57 09/22/2021 11:10 AM EST Pulse 85 09/22/2021 9:22 AM EST Temperature 36.4 ??C (97.6 ??F) 09/22/2021 9:22 AM EST Respiratory Rate 16 09/22/2021 11:10 AM EST Oxygen Saturation 96% 09/22/2021 11:10 AM EST Inhaled Oxygen Concentration - - Weight 97.5 kg (215 lb) 09/22/2021 9:22 AM EST Height 180.3 cm (5' 11) 09/22/2021 9:22 AM EST Body Mass Index 29.99 09/22/2021 9:22 AM EST documented in this encounter Discharge Instructions Discharge InstructionsAnabella Silverman RN - 09/22/2021 11:05 AM EST Upper Endoscopy (EGD) and Colonoscopy: What to Expect at Home Your Recovery After you have an EGD and colonoscopy, you will stay at the clinic for 1 to 2 hours until the medicines wear off. Then you can go home. But you will need to arrange for a ride. Your doctor will tell you when you can eat and do your other usual activities. Your doctor will talk to you about when you will need your next colonoscopy. Your doctor can help you decide how often you need to be checked. This will depend on the results of your test and your riskfor colorectal cancer. You may have a sore throat for a day or two after the test. After the test, you may be bloated or have gas pains. You may need to pass gas. If a biopsy was done or a polyp was removed, you may have streaks of blood in your stool (feces) for a few days. Problems such as heavy rectal bleeding may not occur until several weeks after the test. This isn't common. But it can happen after polyps are removed. This care sheet gives you a general idea about how long it will take for you to recover. But each person recovers at a different pace. Follow the steps below to get better as quickly as possible. How can you care for yourself at home? Activity ?? Rest when you feel tired. ?? You can do your normal activities when it feels okay to do so. Diet ?? Follow your doctor's directions for eating. ?? Unless your doctor has told you not to, drink plenty of fluids. This helps to replace the fluidsthat were lost during the colon prep. ?? Do not drink alcohol. Medicines If you have a sore throat the day after the test, use an hoya-ptx-ngsgxem spray or lozenges to numbyour throat. Warm salt water gargles can also help the discomfort. Your doctor will tell you if and when you can restart your medicines. He or she will also give you instructions about taking any new medicines. ?? If you take blood thinners, such as warfarin (Coumadin), clopidogrel (Plavix), or aspirin, be sure to talk to your doctor. He or she will tell you if and when to start taking those medicines again.Make sure that you understand exactly what your doctor wants you to do. ?? If polyps were removed or a biopsy was done during the test, your doctor may tell you not to take aspirin or other anti-inflammatory medicines for a few days. These include ibuprofen (Advil, Motrin) and naproxen (Aleve). Other instructions for patients who received sedation: You may have received medications during the procedure which effect your judgement and reaction time. For your safety, do not drive or operate machinery until the medicine wears off and you can think clearly. Your doctor may tell you not to drive or operate machinery until the day after your test. Do not sign legal documents or make major decisions until the medicine wears off and you can think clearly. The anesthesia can make it hard for you to fully understand what you are agreeing to. Be careful on stairs and when standing up quickly as you may be unsteady on your feet. IV site: Slight redness or tenderness is normal. You can use a warm compress if you would like. If tenderness and/or redness increase or if foul drainage occurs, please contact your doctor. Please call [phone] before 8pm Mon-Fri with problems, questions, or concerns. If you call [id number] or on weekends, call the Hospital at [phone] and ask for the Transit Mix Operator executive director contract shop andthe mirror finishing machine operator will contact that person for you. When should you call for help? Call [phone] anytime you think you may need emergency care. For example, call if: ?? You passed out (lost consciousness). ?? You pass maroon or bloody stools. ?? You have trouble breathing. Call your doctor now or seek immediate medical care if: ?? You have pain that does not get better after you take pain medicine. ?? You are sick to your stomach or cannot drink fluids. ?? You have new or worse belly pain. ?? You have blood in your stools. ?? You have a fever. ?? You cannot pass stools or gas. ?? Your throat still hurts after a day or two. ?? Your throat still hurts after a day or two. ?? Watch closely for changes in your health, and be sure to contact your doctor if you have any problems. Where can you learn more? You can view health information on Intern, your personal patient account. Log in or sign up today. Content Version: 12.2 ?? [id number] [employer]. Care instructions adapted under license by [facility]. If you have questions about a medical condition or this instruction, always ask your healthcare professional. [employer] disclaims any warranty or liability for your use of this information. documented in this encounter Medications at Time of Discharge Medication Sig Dispensed Refills Start Date End Date pantoprazole EC (Protonix) 40 Take 1 tablet by 90 tablet 3 09/22/2021 mg Tablet, Delayed Release mouth daily. (E.C.)Indications: Gastroesophageal reflux disease with esophagitis without hemorrhage sertraline (ZOLOFT) 100 mg Take 100 mg by 0 03/18 Tablet mouth daily. sertraline (Zoloft) 50 mg Take 50 mg by 0 021 Tablet mouth daily. clonazePAM (KlonoPIN) 0.5 mg Take 0.5 mg by 0 Tablet mouth 2 times daily. ergocalciferoL, vitamin D2, every week 0 09/18/19 21 (vitamin D2) 50,000 unit Capsule methadone (Dolophine) 10 Take 88 mg by 0 01/01/20 21 mg/mL Concentrate mouth daily. budesonide (RHINOCORT AQUA) 1 spray by Nasal 1 Bottle 3 32 mcg/actuation [place], route daily. Non-AerosolIndications: Chronic rhinitis PROAIR HFA 90 mcg/actuation INHALE 1 TO 2 1 10/17 HFA Aerosol Inhaler PUFFS BY MOUTH EVERY 4 HOURS NEEDED atorvastatin (LIPITOR) 40 mg 0 019 Tablet ibuprofen (ADVIL;MOTRIN) 600 Take 600 mg by 0 mg Tablet mouth every 6 hours as needed for Pain. documented as of this encounter H&P Notes Alvaro Ewing MD - 09/22/2021 10:01 AM EST Patient Name: Sonny Hilton Patient Age: 41 y.o. Birthdate: 1980 Admit date: 09/22/2021 Attending Physician: Alvaro Ewing MD Gastroenterology and Hepatology Pre-Procedure History and Physical Exam Procedure: Colonoscopy: and EGD Indication: Dyspepsia and hematochezia Patient Active Problem List Diagnosis Code ??? Herniation of lumbar intervertebral disc with radiculopathy M51.16 EXAM: HEENT: Airway examined, oropharynx clear Mallampati Score: II (soft palate, uvula, fauces visible) LUNGS: Clear to auscultation HEART: Regular rate and rhythm, normal S1, S2 ABDOMEN: Normal bowel sounds, soft, non tender, non distended, A/P Proceed with the planned endoscopic procedure. ASA 2 - Patient with mild systemic disease with no functional limitations Sedation Plan: anesthesia Risks and benefits of the procedure explained to the patient. Consent signed. documented in this encounter Plan of Treatment Upcoming Encounters Date Type Specialty Care Team Description 07/22/2022 Office Visit Dermatology [facility] MD [facility] [address] HUBERT MULTANI[place]DERMAT [place], [place] [address] (Wo rk) documented as of this encounter Procedures Procedure Name Priority Date/Time Associated Diagnosis Comme nts SURGICAL PATHOLOGY Routine 09/22/2021 10:49 Resul ts for this REPORT AM EST procedure are i n the results section. SPECIMEN TO Routine 09/22/2021 10:49 Results for this PATHOLOGY AM EST procedure are i n the results section. SPECIMEN TO Routine 09/22/2021 10:49 Results for this PATHOLOGY AM EST procedure are i n the results section. SPECIMEN TO Routine 09/22/2021 10:49 Results for this PATHOLOGY AM EST procedure are i n the results section. COLONOSCOPY 09/22/2021 10:21 Irritable bowel FLEXIBLE, WITH BX AM EST syndrome, (WRVU 3.66) unspecified type Functional dyspe psia Anemia, unspecified type EGD WITH BIOPSY 09/22/2021 10:21 Irritable bowel (WRVU 2.49) AM EST syndrome, unspecified type Functional dyspe psia Anemia, unspecified type UPPER GI ENDOSCOPY Routine 09/22/2021 10:03 Resul ts for this AM EST procedure are i n the results section. COLONOSCOPY Routine 09/22/2021 10:03 Results for this AM EST procedure are i n the results section. documented in this encounter Results Surgical Pathology Report (09/22/2021 10:49 AM EST) Component Value Ref Test Analysis Performed At [facility] Method Time Signature Surgical [id number] ? Location: ; [facility] Pathology [place] Report The signing pathologist has (i) examined the relevant preparation(s) for the [facility] specimen(s) and (ii) rendered or confirmed the diagnosis(es) . HOSPITAL LABORATORY . ?Surgic al Pathology DIAGNOSIS A - Duodenum R/O Celiac, biopsy (Multiple): - ??Duodenal mucosa within n ormal limits, including preserved villous architecture. B - Stomach, biopsy (Multiple): - ??Gastric fundic mucosa within normal limits. C - Random colon, biopsy (Multiple): - ??Colonic mucosa within normal limits. Electronically signed by: ?Kristyn CABRAL PhD, [place] Verified: ??09/28/2021 10:59 ??Pathologist Performed at: ??-[facility] Dept. of Pathology, [place], [place] SPECIMEN(S) SUBMITTED A - Duodenum R/O Celiac, biopsy (Multiple) B - Stomach, biopsy (Multiple) C - Random colon, biopsy (Multiple) CLINICAL INFORMATION 41-year-old male with dyspepsia, hematochezia, abdominal serena n SPECIMEN PROCESSING A - Labeled/Fixative: Duodenum R/O celiac, formalin. Quantity/Size: Four, 0.3-0.4 cm. Tissue Description: Soft, vides-pink tissues. Sections/Processing: Submitted en toto ??in 1 cassette labeled A1. B - Labeled/Fixative: Stomach, formalin. Quantity/Size: Four, 0.2-0.5 cm. Tissue Description: Soft, vides-pink tissues. Sections/Processing: Submitted en toto ??in 1 cassette labeled B1. C - Labeled/Fixative: Random colon, formalin. Quantity/Size: Multiple, 0.2-0.3 cm. Tissue Description: Soft, vides-pink tissues. Sections/Processing: Submitted en toto ??in 2 cassettes labeled C1-C2. ??korin Specimen (Source) Anatomical Collection Method Collection Time Re ceived Time Location / / Volume Laterality 09/22/2021 10:49 AM EST Alvaro Ewing MD PATHOLOGY/CYTOLOGY ORDERABLE S Performing Organization Address City/State/[place] [address] Specimen to Pathology (09/22/2021 10:49 AM EST) Specimen Anatomical Collection Method Collection Time Receive d Time (Source) Location / / Volume Laterality AP Specimen 09/22/2021 10:49 09/22/2021 AM EST 10:49 AM EST Narrative [facility] - 09/22/2021 10:49 AM EST Specimen requisition ordered. ??Separate Pathology report to follow Alvaro Ewing MD PATHOLOGY/CYTOLOGY ORDERABLE S Performing Organization Address City/State/[place] [address] Specimen to Pathology (09/22/2021 10:49 AM EST) Specimen Anatomical Collection Method Collection Time Receive d Time (Source) Location / / Volume Laterality AP Specimen 09/22/2021 10:49 09/22/2021 AM EST 10:49 AM EST Narrative [facility] - 09/22/2021 10:49 AM EST Specimen requisition ordered. ??Separate Pathology report to follow Alvaro Ewing MD PATHOLOGY/CYTOLOGY ORDERABLE S Performing Organization Address City/State/[place] [address] Specimen to Pathology (09/22/2021 10:49 AM EST) Specimen Anatomical Collection Method Collection Time Receive d Time (Source) Location / / Volume Laterality AP Specimen 09/22/2021 10:49 09/22/2021 AM EST 10:49 AM EST Narrative [facility] - 09/22/2021 10:49 AM EST Specimen requisition ordered. ??Separate Pathology report to follow Alvaro Ewing MD PATHOLOGY/CYTOLOGY ORDERABLE S Performing Organization Address City/State/[place] [address] UPPER GI ENDOSCOPY (09/22/2021 10:03 AM EST) Component Value Ref Test Analysis Performed At [facility] Method Time Signature UPPER GI [facility] ENDOSCOPY Endoscopy Procedure Date: 09/22/2021 10:03 AM ? Patient Name: Sonny Hilton ? N: [id number] ? Date of : 1980 ? Age: 41 ? Order #: [id number] ? Instrument Name: [id number] ? Procedure: ? Upper GI endoscopy Indications: ? Abdominal pain in the left upper ? quadrant Providers: ? Alvaro Ewing, Donald La, RN, ? Gina Fernandez Referring MD: ?Lara Sy Medicines: ? Monitored Anesthesia Care Complications: ? No immediate complications. Procedure: ? The procedure, indications, benefi ts, ? risks and alternatives were e xplained ? to the patient. Specifically ? discussed were potential ? complications including, but not ? limited to, bleeding, perfora tion, ? infection, missing a cancer, and ? adverse medication reactions. The ? Endoscope was introduced thro [facility] the ? mouth, and advanced to the ird part ? of duodenum. The patient tole rated ? the procedure well. The upper GI ? endoscopy was accomplished wi out ? difficulty. The patient loni ated the ? procedure well. ? Findings: ? Esophagogastric landmarks were identified: the Z-line ? was found at 40 cm and the gastroesophageal junction ? was found at 40 cm from the incisors. ? LA Grade B (one or more mucosal breaks greater than 5 ? mm, not extending between the tops of two mucosal ? folds) esophagitis was found. ? The entire examined stomach was normal. Biopsies were ? taken with a cold forceps for histology. ? The examined duodenum was normal. Biopsies were taken ? with a cold forceps for histology. ? Moderate Sedation: ? Not applicable - See Anesthesia documentation Impression: ?- Esophagogastric landmarks ? identified. ? - LA Grade B reflux esophagit is. ? - Normal stomach. Biopsied. ? - Normal examined duodenum. B iopsied. Recommendation: ?Colonoscopy next ? Attending Participation: ? I personally performed the entire procedure. ? Alvaro Ewing Alvaro Ewing, 09/22/2021 10:32:12 AM Number of Addenda: 0 Note Initiated On: 09/22/2021 10:03 AM Specimen (Source) Anatomical Collection Method Collection Time Re ceived Time Location / / Volume Laterality 09/22/2021 10:03 AM EST Lara Sy APRN GENERAL SURGICAL ORDERABLES Performing Organization Address City/State/ZIP Code Phon e Number [facility] COLONOS[facility] (09/22/2021 10:03 AM EST) [facility] gist Method Time Signature COLONOSCOPY [facility] Endoscopy Procedure Date: 09/22/2021 10:03 AM ? Patient Name: Sonny Hilton ? Date of : 1980 ? Age: 41 ? Order #: [id number] ? Instrument Name: [id number] ? Procedure: ? Colonoscopy Indications: ? Hematochezia Providers: ? Donald Antonio, NANCY, ? Gina Fernandez Referring MD: ?Lara Sy Medicines: ? Monitored Anesthesia Care Procedure: ? Pre-Anesthesia Assessment: ? - See the other procedure not e for ? documentation of the pre-proc edure ? assessment. ? The procedure, indications, b enefits, ? risks and alternatives were e xplained ? to the patient. Specifically ? discussed were potential ? complications including, but not ? limited to, bleeding, perfora tion, ? infection, missing a cancer, and ? adverse medication reactions. The ? patient was placed in the lef t ? lateral decubitus position, a nd a ? digital rectal exam was perfo rmed. ? The Colonoscope was inserted in the ? anus and under direct visuali zation, ? advanced to the terminal ileu m, with ? identification of the appendi ceal ? orifice and IC valve. Careful ? inspection was made as the ? colonoscope was withdrawn. Th e ? colonoscopy was performed wit trinity ? difficulty. The patient loni ated the ? procedure well. The quality o f the ? bowel preparation was evaluat ed using ? the BBPS (Eventials Bowel Prepar ation ? Scale) with scores of: Right Colon = ? 3, Transverse Colon = 3 and L eft ? Colon = 3 (entire mucosa seen well ? with no residual staining, sm all ? fragments of stool or opaque liquid). ? The total BBPS score equals 9 . 9 ? minute withdrawal time ? Findings: ? Internal hemorrhoids were found during retroflexion. ? The hemorrhoids were small. Estimated blood loss was ? minimal. ? The colon (entire examined portion) appeared ? otherwise normal. Biopsies were taken with a cold ? forceps for histology. ? The terminal ileum appeared normal. ? Moderate Sedation: ? Not applicable - See Anesthesia documentation Impression: ?- Internal hemorrhoids. ? - The entire examined colon i s ? otherwise normal. Biopsied. ? - The examined portion of the ileum ? was normal. Recommendation: ?- Discharge patient to home. ? - Patient has a contact numbe r ? available for emergencies. Th e signs ? and symptoms of potential del ayed ? complications were discussed with the ? patient. Return to normal act ivities ? tomorrow. Written discharge ? instructions were provided to the ? patient. ? - Rx pantoprazole 40 mg AC br eakfast ? for reflux esophagitis ? - Follow-up with me when all testing ? is completed ? Attending Participation: ? I personally performed the entire procedure. ? Alvaro Ewing Alvaro Ewing, 09/22/2021 11:23:09 AM Number of Addenda: 0 Note Initiated On: 09/22/2021 10:03 AM Specimen (Source) Anatomical Collection Method Collection Time Re ceived Time Location / / Volume Laterality 09/22/2021 10:03 AM EST Lara Sy APRN GENERAL SURGICAL ORDERABLES Performing Organization Address City/State/ZIP Code Phon e Number [facility] documented in this encounter Visit Diagnoses Not on filedocumented in this encounter Administered Medications Inactive Administered Medications - up to 3 most recent administrations Medication Order MAR Action Action Date Dose Rate Site lactated ringers infusion New Bag 09/22/2021 9:29 AM EST 100 mL/hr 100 mL/hr 100 mL/hr, Intravenous, CONTINUOUS, Starting on Tue09/22/21 at 0945, Until Tue09/22/21 at 1106, Endoscopy (Day of Procedure) documented in this encounter Active and Recently Administered Medications Times are shown in EST. Continuous Medication Order 09/20/2021 09/21/2021 09/22/2021 lactated ringers infusion (CANCELED) 0929 (New Bag - Provider: Courtney Todd RN) 100 mL/hr, Intravenous, CONTINUOUS, Star ting on Tue09/22/21 at 0945, Until Tue09/22/21 at 1106, Endoscopy (Day of Procedure) documented in this encounter Care Teams Azure Architect Relationship Specialty Start Date End Date Lara Sy APRN PCP - General Internal Medicine 10/09/[address] [place] [address] documented as of this encounter
--- OUTSIDE RECORDS SUMMARY | 2022-06-04 02:11 | XMS_ITS | Encounter Summary ---
:1980 [place] [address] Care Team Providers Name Role Phone Unavailable Primary Care Provider Unavailable Encounter Details Date Type Department Care Team Description 05/27/2017 Ancillary Procedure Radiology Library at Huy Lee MD [facility] [place] [address] [place] [address] [phone] (Wo rk) Social History Tobacco Use Types Packs/Day Years Used Date Never Assessed Sex Assigned at Date Recorded Male 09/21/2021 8:23 AM EST documented as of this encounter Plan of Treatment Upcoming Encounters Date Type Specialty Care Team Description 07/22/2022 Office Visit Dermatology [facility] MD [facility] [address] HUBERT MULTANI-DERMAT [place], [place] [address] (Wo rk) documented as of this encounter Procedures Procedure Name Priority Date/Time Associated Diagnosis Comme nts FILM LIBRARY Routine 05/27/2017 12:00 AM Results for this STORAGE ONLY DX EDT procedure ar e in SPINE the results section. documented in this encounter Results Film Library- Storage Only DX Spine (05/27/2017 12:00 AM EDT) Specimen (Source) Anatomical Location Collection Method / Collectio n Time Received Time / Laterality Volume Narrative RAD - 10/19/2018 11:07 AM EST This exam is for storage only and is aut o-finalizing. Christopher Lee MD IMG FILM LIBRARY ORDERABLES Performing Organization Address City/State/ZIP Code Phon e Number DH RAD DH [facility]FI[facility] [place] documented in this encounter Visit Diagnoses Not on filedocumented in this encounter
--- OUTSIDE RECORDS SUMMARY | 2022-06-04 02:11 | XMS_ITS | Encounter Summary ---
:1980 Author Organization [facility] [place] [address] Care Team Providers Name Role Phone Lara Sy Jono BRO Primary Care Provider Encounter Details Date Type Department Care Team Description 09/22/2021 Anesthesia Event [place] [facility] [place], [facility] [place] [address] [facility] [phone] DR ANESTHESIOLOGY [place], [place] [address] Anesthesia Record Procedure Summary Procedure Name Responsible Anesthesia Start Anesthesia Stop Time Anesthesiologist Time EGD WITH BIOPSY Mt Rodríguez MD 09/22/21 1015 09/22/21 105 4 (WRVU 2.49) (N/A Trunk) Events Date Time Event Comment 09/22/2021 0944 1015 AN Verify 1015 Start 1015 An Start Data 1018 An Induction 1018 Anesthesia Ready 1021 Procedure Start 1054 an stop data 1054 Recovery or ICU Handoff Patient care was transferred to the destination unit staff after review of the patient's medica l history, current anesthetic/surgi mitali status and plan, according to the Provider Handoff Checklist. 1054 Stop Name Total Propofol 50 mg Propofol INF 702 mg Lactated Ringers 400 mL Agents Name O2 Auxiliary Flowmeter 1 Blood No blood administrations on file. Lines, Drains, and Airways Type Details Placement Removal PIV 09/22/21; 09; cephalic 09/22/21 0925 by Perez , 09/22/21 1128 by Jarnot, vein (lateral side of arm), NANCY Biggs RN right; [id number] catheter system; Anatomical Landmarks; 20 gauge; jaqueline miranda; distraction, tolerated well, appears comfortable; 0; 09/22/21; 1128 documented in this encounter Social History Tobacco Use Types Packs/Day Years Used Date Former Smoker Cigarettes 2 20 Quit: 2016 Smokeless Tobacco: Never Used Alcohol Use Standard [...] AM EST documented as of this encounter OR Notes Anesthesia Postprocedure Evaluation - Mt Rodríguez MD - 09/22/2021 11:09 AM EST Department of Anesthesiology Post-procedure Note Patient: Sonny Hilton Procedure Summary Date: 09/22/21 Room / Location: [facility] / [facility] Anesthesia Start: 1015 Anesthesia Stop: 105 Procedures: EGD WITH BIOPSY (WRVU 2.49) (N/A Trunk) COLONOSCOPY FLEXIBLE, WITH BX (WRVU 3.66) (N/A Trunk) Diagnosis: Irritable bowel syndrome, unspecified type Functional dyspepsia Anemia, unspecified type (Abdominal pain) Surgeons: Alvaro Ewing MD Responsible Provider: Mt Rodríguez MD Anesthesia Type: MAC ASA Status: 3 All Anesthesia Providers: Anesthesiologist: Mt Rodríguez MD R PROGRAMMER: Mt Shah CRNA Vitals Value Taken Time BP 104/71 09/22/21 1100 Temp Pulse Resp 16 09/22/21 1100 SpO2 94 % 09/22/21 1109 Pain Level 0 09/22/21 1100 Vitals shown include unvalidated device data. Patient Location: PACU/[facility] Level of Consciousness: Awake and Alert Pain Management: Satisfactory Analgesia PONV: None Cardiovascular Status: At Baseline and Hemodynamically Stable Respiratory Status: At Baseline and Room Air Postoperative Fluid Status: Intravascular EUvolemia Possible Anesthetic Complications: NONE apparent at time of evaluation Final Primary Anesthesia Type: MAC (The anesthetic type performed was the same as planned.) Comments: MT RODRÍGUEZ MD Anesthesia Preprocedure Evaluation - Mt Rodríguez MD - 09/22/2021 9:41 AM EST Pre-Anesthesia Evaluation for: Sonny Hilton a 41 y.o. male. Procedure(s): EGD, UPPER GI ENDOSCOPY COLONOSCOPY, DIAGNOSTIC Patient Active Problem List Diagnosis Date Noted ??? Herniation of lumbar intervertebral disc with radiculopathy 10/24/2018 Past Medical History: Diagnosis Date ??? Anxiety ??? Asthma ??? Depression ??? Dyslipidemia ??? Herniation of lumbar intervertebral disc with radiculopathy 10/24/2018 L4-5 right far lateral ??? Necrotizing cellulitis ??? Sinusitis No past surgical history on file. Social History Tobacco Use ??? Smoking status: Former Smoker Packs/day: 2.00 Years: 20.00 Pack years: 40.00 Types: Cigarettes Quit date: 2017 Years since quittin.0 ??? Smokeless tobacco: Never Used Substance Use Topics ??? Alcohol use: Not Currently Comment: 3/week Social History Substance and Sexual Activity Drug Use Not Currently ??? Types: Marijuana Comment: 2/month smoke Allergies Allergen Reactions ??? Penicillins Hives and Nausea And Vomiting ??? Sulfur Hives and Nausea And Vomiting Medications: MAR and/or home medications have been reviewed. Physical Exam: Preprocedure Vitals Current as of 09/22/21 0941 BP: 130/81 Pulse: 85 Resp: 18 SpO2: 96 Temp: 36.4 ??C (97.6 ??F) Height: 180.3 cm (5' 11) (09/22/21) Weight: 97.5 kg (215 lb) (09/22/21) BMI: 29.98 IBW: 75.3 kg (165 lb 14.8 oz) Last edited 09/22/21921 by TK Airway Assessment: Mallampati: II TM distance: >3 FB Neck ROM: full Cardiovascular Assessment: system normal Pulmonary Assessment: unlabored breathing PE comment: Patient with asthma uses inhalers Dental Assessment: - normal exam Misc Assessment: Patient is wearing No contact(s). IV access: Peripheral line Last Filed Perioperative Cognitive Screening None Anesthesia Plan: ASA 3 MAC, Patient with lumbago and sthma requiring inhalers here for EGD/colonoscopy here with irritable bowelsyndrome Functional dyspepsia Anemia.. Procedure requires anesthesia to mitigate these risks listed below. Medical chart reviewed thoroughly with particular attention paid to conditions that immediately impact perioperative care and planning, including, but not limited to, cardiac, respiratory, hematological, and vascular conditions. Risks/benefits discussed with patient including, but not limited to, denta l/airway/lip injury, vascular injury, nerve injury, thrombosis, eye injury, awareness, CVA, cardiac arrest, , adverse drug reactions, among others. All questions answered to her satisfaction. PLAN: MAC w GA backup. Std monitors PIV Region - Other Informed Consent: Anesthetic plan and risks discussed with patient. Plan discussed with R PROGRAMMER and attending. Anesthesia Screening documented in this encounter Plan of Treatment Upcoming Encounters Date Type Specialty Care Team Description 07/22/2022 Office Visit Dermatology Mt Henderson MD [facility] ER DR HUBERT MULTANI-DERMAT [place] [address] (Wo rk) documented as of this encounter Visit Diagnoses Not on filedocumented in this encounter Administered Medications Inactive Administered Medications - up to 3 most recent administrations Medication Order MAR Action Action Date Dose Rate Site lactated ringers infusion New Bag 09/22/2021 10:15 AM EST Intravenous, CONTINUOUS PRN, Starting on Tue09/22/21 at 1015, Until Tue09/22/21 at 1054, Anesthesia Intra-op propofoL (Diprivan) (10 mg/mL) New Bag 09/22/2021 10:18 AM 200 mcg/kg/min 117 mL/hr infusion EST Intravenous, CONTINUOUS PRN, Starting on Tue09/22/21 at 1018, Until Tue09/22/21 at 1054, Anesthesia Intra-op, Routine propofoL (Diprivan) 10 mg/mL bolus injection Given 10:18 AM EST 50 mg (Anesthesia) Intravenous, PRN, Starting on Tue09/22/21 at 1018, Until Tue09/22/21 at 1054, Anesthesia Intra-op documented in this encounter Care Teams Waste Hand Relationship Specialty Start Date End Date Lara Sy APRN PCP - General Internal Medicine 10/09/[address] [place] [address] documented as of this encounter
--- OUTSIDE RECORDS SUMMARY | 2022-06-04 02:11 | XMS_ITS | Encounter Summary ---
:1980 Author Organization [facility] [place] [address] Care Team Providers Name Role Phone Lara Sy ADALI Primary Care Provider Encounter Details Date Type Department Care Team Description 10/10/2018 Ancillary Procedure Radiology Library at Huy Lee MD [facility] [place] [address] [place] [address] [phone] (Wo rk) Social History Tobacco Use Types Packs/Day Years Used Date Never Assessed Sex Assigned at Date Recorded Male 09/21/2021 8:23 AM EST documented as of this encounter Plan of Treatment Upcoming Encounters Date Type Specialty Care Team Description 07/22/2022 Office Visit Dermatology Mt Henderson MD [facility] DR HUBERT MULTANI-DERMAT [place], [place] [address] (Wo rk) documented as of this encounter Procedures Procedure Name Priority Date/Time Associated Diagnosis Comme nts FILM LIBRARY Routine 10/10/2018 12:00 AM Results for this STORAGE ONLY MR EST procedure ar e in SPINE the results section. documented in this encounter Results Film Library- Storage Only MR Spine (10/10/2018 12:00 AM EST) Specimen (Source) Anatomical Location Collection Method / Collectio n Time Received Time / Laterality Volume Narrative RAD - 10/19/2018 3:06 AM EST This exam is for storage only and is aut o-finalizing. Christopher Lee MD IMG FILM LIBRARY ORDERABLES Performing Organization Address City/State/ZIP Code Phon e Number RAD [facility] [place] documented in this encounter Visit Diagnoses Not on filedocumented in this encounter Care Teams Chocolate Maker Relationship Specialty Start Date End Date Lara Sy APRN PCP - General Internal Medicine 10/09/18 [address] [facility] [place] [address] documented as of this encounter
--- OUTSIDE RECORDS SUMMARY | 2022-06-04 02:11 | XMS_ITS | Encounter Summary ---
:1980 Author Organization [facility] [place] [address] Care Team Providers Name Role Phone Lara Sy APRN Primary Care Provider Encounter Details Date Type Department Care Team Description 10/08/2021 TH Visit Gastroenterology at [facility] Alvaro Ewing Irritable bowel syndrome, un specified type; (TeleHealth) [facility] Laurel De La Cruz [place] [address] [facility] [phone] [place] [address] Social History Tobacco Use Types Packs/Day Years [...] documented as of this encounter Progress Notes Alvaro Ewing MD - 10/08/2021 9:00 AM EST [facility]LE[facility]IC[facility] Chief Complaint: Sonny Hilton is a 41 [address] Lovelace ref. provider found here for follow-up for abdominal pain. ??Referred for second opinion ?? Detailed history: He was last seen by me April 28, 2021 my thoughts at that time were as follows: ?? Assessment/Plan: ??Lida??is a 40 y.o.??patient with the following issues: 1. LUQ pain 4/12 ago - ?Near constant pain since then - worse in certain positions - better if lying flat. Overall non-progressive but not improving. ??Also seems to be worse with eating but no change with BM. Sudden onset and positional component and relatively localized pain are all suggestive of abdominal wall pain but he did not have a positive Carnett's sign on exam. His anxiety about the pain is likely a contributing factor to the impact on him (he describes thinking about this all day long). ??Gastritis/functiona dypsepsa could be contributing as well - worse with eating and does take regular NSAIDs. Constipation could be contributing to pain as well. ?? 2. Chronic variable bowel pattern - historically both prolonged periods of diarrhea or constipation or both. Recently been more constipated but no recent dramatic change. ??Currently a hard BM every 2 days. Associated prolonged toilet type and straining. Occasional sensation of incomplete emptying. ??This is consistent with IBS-C and opioid induced constipation. 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 ?? 3. Outlet type bleeding - has settled since colonoscopy. Likely hemorrhoids/fissure. ?? 4. Colonic polyp ?? 5. Anemia as per patient - I did not see this in his faxed notes. Possibly due to blood loss from outlet bleeding.? Recommendations: We discussed GI functional/motility disorders in depth today including pathophysiology, expected course, impact and treatment categories ??We also discussed realistic goals (with emphasis on improved quality of life) and patient responsibilities. Please see the patient handout for recommendations on general treatment measures including lifestyle, dietary, and non-prescription pharmacologic options. ?? I will arrange a comprehensive evaluation of the structure and function of the patient's GI tract including the following investigations +/- referrals: ?? EGD Colonoscopy Bloodwork - anti-TTG, TSH, CBC, ferritin Consider repeat??CT abdomen and pelvis??if refractory Consider??Smartpill Consider anorectal manometry Referral to??GI??psychology to work on specific psychologic measures for functional disorders ?? Cut back/eliminate NSAIDs. ?? Continue with tapering off methadone - may improve bowel pattern. PCP can consider PAMORA medication. ?? Start taking miralax as directed ?? Work on conservative measures for abdominal MSK injuries including rest, strengthening exercises, cold/heat, and simple analgesics. Consider trigger point injection if refractory.? Interval history: Blood work showed a normal ferritin negative celiac serology and normal TSH. His CBC showed mild anemia with a hemoglobin of 12.5 the MCV was normal at 88 ?? He underwent upper and lower endoscopy September 22, 2020. The colonoscopy revealed internal hemorrhoids. Otherwise the colon was normal as was the ileum. His EGD showed LA grade B reflux esophagitis. Biopsies of his stomach duodenum and colon were normal. He was prescribed pantoprazole 40 mg once a day No changes in symptoms - continues to excessively worry about his pain - no specific concerns but admits he spends most of day of thinking about it. Current Regimen: Pantoprazole 40 mg once a day ?? Past Therapies: Omeprazole 40 mg once a day??- resolved heartburn ?? Review of systems: 14-point review of systems reviewed and negative except as above. Medications: Outpatient Medications Prior to Visit Medication Sig Dispense Refill ??? pantoprazole EC (Protonix) 40 mg Tablet, Delayed Release (E.C.) Take 1 tablet by mouth daily. 90tablet 3 ??? sertraline (ZOLOFT) 100 mg Tablet Take 100 mg by mouth daily. ??? sertraline (Zoloft) 50 mg Tablet Take 50 mg by mouth daily. ??? clonazePAM (KlonoPIN) 0.5 mg Tablet Take 0.5 mg by mouth 2 times daily. ??? ergocalciferoL, vitamin D2, (vitamin D2) 50,000 unit Capsule every week ??? methadone (Dolophine) 10 mg/mL Concentrate Take 88 mg by mouth daily. ??? budesonide (RHINOCORT AQUA) 32 mcg/actuation [place], Non-Aerosol 1 spray by Nasal route daily. (Patient not taking: Reported on 04/28/2021) 1 Bottle 3 ??? PROAIR HFA 90 mcg/actuation HFA Aerosol [...] History: has a past medical history of Anxiety, Asthma, Depression, Dyslipidemia, Herniation of lumbar intervertebral disc with radiculopathy (10/24/2018), Necrotizing cellulitis, and Sinusitis. Past Surgical History: has a past surgical history that includes Upper Gi Endoscopy, Biopsy (85337) (N/A, 09/22/2021) and Colonoscopy, Biopsy (24246) (N/A, 09/22/2021). Family History: family history is not on file. denies family history of colon cancer, IBD, or celiac disease in mother father or other family members Social History: reports that he quit smoking about 5 years ago. His smoking use included cigarettes.He has a 40.00 pack-year smoking history. He has never used smokeless tobacco. He reports previous alcohol use. He reports previous drug use. Drugs: Marijuana, Benzodiazapines , and Other . No Physical Examination performed during this telemedicine visit Questionnaire: GI Followup Responses 10/08/2021 Overall relief from GI symptoms No In general, health is: Good Physical health 30 Mental health 5 Poor physical and mental health kept from usual activities - CDC Healthy Day Score 30 Days absent from work 30 Days worked shorter hours 30 Days less productive Yes Typical hours scheduled to work - Hours worked per week - IBS Severity Score 300 (Moderate IBS) PHQ-4 Score 9 (Severe) # of minutes to fall asleep 60 # of hours to fall asleep 5 Interference with daily function Somewhat Laboratory studies, imaging, and procedures (in summary of my review of prior records): See above Assessment/Plan: Mr. Hilton is a 41 y.o. patient with with the following issues: 1. Chronic LUQ pain constant pain but worse in certain positions - better if lying flat. Overall non-progressive but not improving. ??Also seems to be worse with eating but no change with BM. Sudden onset and positional component and relatively localized pain are all suggestive of abdominal wall pain but he did not have a positive Carnett's sign on exam. His anxiety about the pain is likely a contributing factor to the impact on him (he describes thinking about this all day long). ??Functional dypsepsia and constipation could be contributing as well due to distension of abdominal wall. He did feel better after colonoscopy bowel prep for a few days. ?? 2. Chronic variable bowel pattern - historically both prolonged periods of diarrhea or constipation or both. Recently been more constipated but no recent dramatic change. ??Currently a hard BM every 2 days. Associated prolonged toilet type and straining. Occasional sensation of incomplete emptying. ??This is consistent with IBS-C and opioid induced constipation. 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 ?? 3. Personal history of colonic polyps ?? 5. Mild chronic anemia - no evidence of iron deficiency. I will leave to PCP. Recommendations: We further discussed GI functional/motility disorders in depth today including pathophysiology, expected course, impact and treatment categories ??We also discussed realistic goals (with emphasis on improved quality of life) and patient responsibilities. Please see the patient handout for recommendations on general treatment measures including lifestyle, dietary, and non-prescription pharmacologic options. Recommend Miralax - discussed how to use today Also consider start Metamucil (psyllium). Get the no added sweeteners version. Start at 1 teaspoondaily for 1 week, then 2 teaspoons daily for one week, then maintain one Tablespoon daily afterward.Can slowly increase to 2 Tablespoons daily if still constipated. If refractory constipation consider Linzess. Continue with tapering off methadone - may improve bowel pattern. PCP can consider PAMORA medication. ?? Work on conservative measures for abdominal MSK injuries including rest, strengthening exercises, cold/heat, and simple analgesics. If refractory symptoms consider referral to chronic pain specific trigger point injection if refractory.??Can contact me to put referral in if refractory Continue with surveillance colonoscopies locally - due in September 2027 Can complete 6-8 week course of pantoprazole then taper off Await GI psychology appointment - my handout does have some cognitive exercises to try while awaiting. We discussed that complete symptom relief may [...] as long as tolerated, before changing therapy. We have not scheduled further follow-up at our center at this time, as the GI issues have stabilizedand can be managed locally following our recommendations. We will refer the patient back to Lara Sy APRN for continued local care management, based on the care plan provided above. If the problem returns or worsens in the future despite following all of these recommendations, please submit a new consult to our center for re-evaluation. The patient was located in [place] at the time of their visit. TIME SPENT WITH PATIENT Time spent reviewing records prior to this encounter on day of appointment: 15 minutes Time spent during encounter with patient including counselin minutes Time spent documenting encounter after office visit: 10 minutes Alvaro Ewing MD [facility] [place] [phone] documented in this encounter Plan of Treatment Upcoming Encounters Date Type Specialty Care Team Description 07/22/2022 Office Visit Dermatology Mt Henderson MD [facility] ER DR HUBERT MULTANI-DERMAT [facility] [place] [address] (Wo rk) documented as of this encounter Visit Diagnoses Diagnosis Irritable bowel syndrome, unspecified ty pe Functional dyspepsia Dyspepsia and other specified disorders of function of stomach documented in this encounter Care Teams Facilities Project Manager Relationship Specialty Start Date End Date Lara Sy APRN PCP - General Internal Medicine 10/09/[address] [place] [address] documented as of this encounter
--- OUTSIDE RECORDS SUMMARY | 2022-06-04 02:11 | XMS_ITS | Encounter Summary ---
:1980 [place] [address] Care Team Providers Name Role Phone Unavailable Primary Care Provider Unavailable Encounter Details Date Type Department Care Team Description 03/14/2013 Ancillary Procedure Radiology Library at Huy Lee MD [facility] [place] [address] [place] [address] [phone] (Wo rk) Social History Tobacco Use Types Packs/Day Years Used Date Never Assessed Sex Assigned at Date Recorded Male 09/21/2021 8:23 AM EST documented as of this encounter Plan of Treatment Upcoming Encounters Date Type Specialty Care Team Description 07/22/2022 Office Visit Dermatology Mt Henderson MD [facility] DR HUBERT MULTANI-DERMAT [place], [place] [address] (Wo rk) documented as of this encounter Procedures Procedure Name Priority Date/Time Associated Diagnosis Comme nts FILM LIBRARY Routine 03/14/2013 12:00 AM Results for this STORAGE ONLY MR EDT procedure ar e in SPINE the results section. documented in this encounter Results Film Library- Storage Only MR Spine (03/14/2013 12:00 AM EDT) Specimen (Source) Anatomical Location Collection Method / Collectio n Time Received Time / Laterality Volume Narrative RAD - 10/19/2018 3:04 AM EST This exam is for storage only and is aut o-finalizing. Christopher Lee MD IMG FILM LIBRARY ORDERABLES Performing Organization Address City/State/ZIP Code Phon e Number DH RAD DH RAFI[facility] [place] documented in this encounter Visit Diagnoses Not on filedocumented in this encounter
--- OUTSIDE RECORDS SUMMARY | 2022-06-04 02:11 | XMS_ITS | Encounter Summary ---
:1980 Author Organization [facility] [place] [address] Care Team Providers Name Role Phone Lara Sy APRN Primary Care Provider Reason for Visit Reason Comments Back Pain Right Hip Pain Right Leg Pain Consultation (Routine) - Closed Specialty Diagnoses / Procedures Referred By Contact Refer red To Contact Orthopaedics Diagnoses lumbar disc herniation/ MRI 10/10/18 [facility] Lara Sy, ADALI [facility] [address] [place] [id number] [place] [phone] Referral ID Status Reason Start Date Expiration Date Visits V isits Requested Authorized [id number] Closed Consult, 10/18/2018 10/18/2019 1 1 [facility] Encounter Details Date Type Department Care Team Description 10/24/2018 Office Visit [facility] on of lumbar Shauna CABRAL intervertebral disc with [facility] radicup [facility] [address], [place] [facility] [address] [place] [address] [phone] Social History Tobacco Use Types Packs/Day Years Used Date Former Smoker Smokeless Tobacco: Never Used Sex Assigned at Date Recorded Male 09/21/2021 8:23 AM EST documented as of this encounter Last Filed Vital Signs Vital Sign Reading Time Taken Comments Blood Pressure 141/77 10/24/2018 9:33 AM EST Pulse 72 10/24/2018 9:33 AM EST Temperature - - Respiratory Rate - - Oxygen Saturation - - Inhaled Oxygen Concentration - - Weight 86.2 kg (190 lb) 10/24/2018 9:33 AM EST Height 180.3 cm (5' 11) 10/24/2018 9:33 AM EST Body Mass Index 26.5 10/24/2018 9:33 AM EST documented in this encounter Progress Notes Christopher Lee MD - 10/24/2018 10:00 AM EST Images from the original note were not included. Christopher Lee MD MS FAOA Department of Orthopaedics [facility] October 24, 2018 Mr. Hilton is a 58-year-old gentleman seen today in the spine center in consultation from Lara Sy APRN. He has had a 10-year history of pain in the right buttock and posterior thigh. Symptoms do not go below the knee. They do not go to the anterior thigh. He has no numbness or tingling or weakness. 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 Symptoms have been present for 10 years. Anti-inflammatories are helpful as is massage. Physical therapy performed over 6 years ago was not helpful at that time. He had one injection about 4 years ago which provided moderate but temporary improvement. He reports having no other treatment. Night pain is a frequent but not predominant problem. He has no problems with gait or balance. His review of systems is negative for GI, , constitutional symptoms. He is able to exercise. His left leg is asymptomatic. 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 He stopped smoking about a year and a half ago. Height is 5 feet 11 inches, weight is 190 pounds with a body mass index of 26.5. Pain over the past week is ratedas a 7. This is a quiet healthy-appearing pleasant gentleman. He moves easily about the office. His gait is normal. He can toe and heel walk and tandem gait without problems. On inspection from the back his pelvis is level his spine is straight all of which is normal in appearance and is nontender. Sciatic notches are nontender. His lower extremity neurologic exam is very reassuring and is entirely normal including normal motor strength, normal sensory function and normal reflexes. Clonus and Babinski's areabsent. Straight leg raise test is negative. Femoral tension test is negative. Hip range of motion is pain-free. Is no atrophy or edema. Is not spastic or myelopathic. Lumbar MRI is reviewed from 10/10/18. There is a suggestion of a very small far lateral/foraminal discprotrusion on the right at the L4-L5 level with minimal nerve contact seen on axial T2 image 9 series 7 and axial T1 image 13 series 5 and sagittal T2 image 3 series 2. This is a very small protrusion.This may be remanence of potential much larger herniation at the time of onset 10 years ago. At present with this small size and minimal contact I would consider it unlikely to be actively symptomatic. Impression: 10 years of right posterior thigh pain possibly related to disc herniation far lateral right side L4-L5. The current MRI findings demonstrate minimal nerve compression. He has a small protrusion at L5-S1 which I think is an asymptomatic finding. Recommendation: I reviewed these findings with the patient including reviewing the imaging studies. Recommended a transforaminal injection right L4-L5. If this is not able to be done at home under fluoroscopic guidance would recommend referral to our anesthesia pain clinic for this procedure. I think surgery is unlikely to provide substantial benefit. Will check as needed. [employer] voice recognition was used for this dictation and I apologize for any mis-wording. [facility] Center Response Trends Patient-reported scores: myD-H Spine Questionnaire responses 10/23/2018 Oswestry Disability Index (Range: 0-100) 40 (Moderate disability) PROMIS-10 Physical Health Score 34.9 PROMIS-10 Mental Health Score 28.4 Christopher Lee MD MS FAOA Department of Orthopaedic Surgery [facility] [address] [address] of Orthopaedic Surgery [facility] [phone] [email or web address] documented in this encounter Plan of Treatment Upcoming Encounters Date Type Specialty Care Team Description 07/22/2022 Office Visit Dermatology [facility] [address] HUBERT MULTANI-DERMAT [place], [place] [address] (Wo rk) documented as of this encounter Visit Diagnoses Diagnosis 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
--- OUTSIDE RECORDS SUMMARY | 2022-06-04 02:11 | XMS_ITS | Encounter Summary ---
:1980 Author Organization [facility] [place] [address] Care Team Providers Name Role Phone Lara Sy APRN Primary Care Provider Encounter Details Date Type Department Care Team Description 11/23/2018 Orders Only Otol[facility]ology at [facility] Bernice Salmeron, Chronic rhinitis [facility] [place] [address] Social History Tobacco Use Types Packs/Day Years Used Date Former Smoker Cigarettes 2 20 Quit: 2017 Smokeless Tobacco: Never Used Sex Assigned at Date Recorded Male 09/21/2021 8:23 AM EST documented as of this encounter Plan of Treatment Upcoming Encounters Date Type Specialty Care Team Description 07/22/2022 Office Visit Dermatology [facility] MD [facility] [address] MULTANI[address]DERMAT [place], [place] [address] (Wo rk) documented as of this encounter Visit Diagnoses Diagnosis Chronic rhinitis documented in this encounter Care Teams Mineral Ore Processing Labourer Relationship Specialty Start Date End Date Lara Sy APRN PCP - General Internal Medicine 10/09/[address] [place] [address] documented as of this encounter
--- OUTSIDE RECORDS SUMMARY | 2022-06-04 02:11 | XMS_ITS | Encounter Summary ---
:1980 Author Organization [facility] [place] [address] Care Team Providers Name Role Phone Lara Sy APRN Primary Care Provider Encounter Details Date Type Department Care Team Description 09/22/2021 Surgery Gastroenterology at [facility] Alvaro Ewing, EGD WITH BIOPSY ([facility] Laurel fernandez MD 2.49) [place] [address] [facility] [phone] [place], [place] [address] Social History Tobacco Use Types [...] the day after the test, use an dpfy-cln-[id number] spray or lozenges to numbyour throat. Warm [...] occurs, please contact your doctor. Please call [phone] before 8pm Mon-Fri with problems, questions, or concerns. If you call afddn1yd or on weekends, call the Hospital at [phone] and ask for the [employer] Former sporting goods salesperson andthe oilfield plant and field operator will contact that person for you. When should you call for help? Call 911 anytime you think you may need emergency [...] more? You can view health information on [facility], your personal patient account. Log in or sign up today. Content Version: 12.2 ?? [id number] [employer]. Care instructions adapted under license by [facility]. If you have questions about a medical condition or this instruction, always ask your healthcare professional. [employer] disclaims any warranty or liability for your [...] by Nasal 1 Bottle 3 32 mcg/actuation [place], route daily. Non-AerosolIndications: Chronic rhinitis PROAIR HFA [...] 07/22/2022 Office Visit Dermatology [facility] MD [facility] [address] HUBERT MULTANI-DERMAT [place], [place] [address] (Wo rk) documented as of [...] Component Value Ref Test Analysis Performed At [facility] Range Method Time Signature Surgical [id number] ? Location: 4; [facility]; A [facility] Pathology [place] Report The signing pathologist has (i) examined [...] Mojgan Verified: ??09/28/2021 10:59 ??Pathologist Performed at: ??-[facility] Dept. of Pathology, [place], [place] SPECIMEN(S) SUBMITTED A - Duodenum R/O [...] MD PATHOLOGY/CYTOLOGY ORDERABLE S Performing Organization Address City/[facility]/[place] [address] Specimen to Pathology (09/22/2021 10:49 AM EST) Specimen Anatomical Collection Method Collection Time Receive d Time (Source) Location / / Volume Laterality AP Specimen 09/22/2021 10:49 09/22/2021 AM EST 10:49 AM EST Narrative [facility] - 09/22/2021 10:49 AM EST Specimen requisition ordered. ??Separate Pathology report to follow Alvaro Ewing MD PATHOLOGY/CYTOLOGY ORDERABLE S Performing Organization Address City/[facility]/[place] [address] Specimen to Pathology (09/22/2021 10:49 AM EST) Specimen Anatomical Collection Method Collection Time Receive d Time (Source) Location / / Volume Laterality AP Specimen 09/22/2021 10:49 09/22/2021 AM EST 10:49 AM EST Narrative [facility] - 09/22/2021 10:49 AM EST Specimen requisition ordered. ??Separate Pathology report to follow Alvaro Ewing MD PATHOLOGY/CYTOLOGY ORDERABLE S Performing Organization Address City/State/[place] [address] Specimen to Pathology (09/22/2021 10:49 AM EST) Specimen Anatomical Collection Method Collection Time Receive d Time (Source) Location / / Volume Laterality AP Specimen 09/22/2021 10:49 09/22/2021 AM EST 10:49 AM EST Narrative [facility] - 09/22/2021 10:49 AM EST Specimen requisition ordered. ??Separate Pathology report to follow Alvaro Ewing MD PATHOLOGY/CYTOLOGY ORDERABLE S Performing Organization Address City/State/[place] [address] UPPER GI ENDOSCOPY (09/22/2021 10:03 AM EST) Component Value Ref Test Analysis Performed At [facility] Method Time Signature UPPER GI [facility] PROVATION ENDOSCOPY Endoscopy Procedure Date: 09/22/2021 10:03 AM ? Patient Name: Sonny Hilton ? Date of : 1980 ? Age: 41 ? Order #: [id number] ? Instrument Name: [id number] ? Procedure: ? Upper GI endoscopy Indications: [...] reactions. The ? Endoscope was introduced thro [facility] the ? mouth, and advanced to the [...] Number PROVATION COLONOSCOPY (09/22/2021 10:03 AM EST) [facility] gist Method Time Signature COLONOSCOPY [facility] PROVATION Endoscopy Procedure Date: 09/22/2021 10:03 AM ? Patient Name: Sonny Hilton ? Date of : 1980 ? Age: 41 ? Order #: [id number] ? Instrument Name: [id number] ? Procedure: ? Colonoscopy Indications: ? Hematochezia [...] was evaluat ed using ? the BBPS ([place] Bowel Prepar ation ? Scale) with scores [...] PROVATION documented in this encounter Visit Diagnoses Diagnosis Irritable bowel syndrome, unspecified ty pe Functional dyspepsia Dyspepsia and other specified disorders of function of stomach Anemia, unspecified type documented in this encounter Administered Medications Inactive Administered [...] Procedure) documented in this encounter Care Teams Vegetable Sorter Relationship Specialty Start Date End Date Lara Sy APRN PCP - General Internal Medicine 10/09/[address] [place] [address] documented as of this encounter
--- OUTSIDE RECORDS SUMMARY | 2022-06-04 02:11 | XMS_ITS | Encounter Summary ---
:1980 Author Organization [facility] [address] Care Team Providers Name Role Phone Lara Sy APRN Primary Care Provider Encounter Details Date Type Department Care Team Description 08/17/2021 Telephone Gastroenterology at [facility] [place] [address] Social History Tobacco Use Types Packs/Day Years Used Date Former Smoker Cigarettes 2 20 Quit: 2017 Smokeless Tobacco: Never Used Alcohol Use Standard Drinks/Week Comments Not Currently 0 (1 standard drink = 0.6 oz pure alcoho l) Sex Assigned at Date Recorded Male 09/21/2021 8:23 AM EST documented as of this encounter Miscellaneous Notes Telephone Encounter - Zo Villarreal - 08/18/2021 3:37 PM EST Per K[facility] patient declined scheduling. Referral has been closed. Telephone Encounter - Zo Villarreal - 08/17/2021 4:39 PM EST Left message for patient to contact the office for scheduling. The patient has been referred to the Behavioral Health Team for CBT-IBS. Please schedule the patient with Dr Michel if he is interested. New patient overbook approved at this time. No more than two new patients per week please. documented in this encounter Plan of Treatment Upcoming Encounters Date Type Specialty Care Team Description 07/22/2022 Office Visit Dermatology [facility] MD [facility] [address]UBERT MULTANI-DERMAT [place], [place] [address] (Wo rk) documented as of this encounter Visit Diagnoses Not on filedocumented in this encounter Care Teams Supply Requirements Officer Relationship Specialty Start Date End Date Lara Sy APRN PCP - General Internal Medicine 10/09/[address] [place] [address] documented as of this encounter
--- OUTSIDE RECORDS SUMMARY | 2022-06-04 02:11 | XMS_ITS | Clinical Summary ---
:1980 Author Organization [facility] [place] [address] Care Team Providers Name Role Phone Lara Sy APRN Primary Care Provider Allergies Active Allergy Reactions Severity Noted Date Comments Penicillins Hives, Nausea And Vomiting 10/24/2018 Sulfur Hives, Nausea And Vomiting 10/24/2018 Medications Medication Sig Dispensed Refills Start Date End Date Status PROAIR HFA 90 INHALE 1 TO 2 1 10/17/2018 A ctive mcg/actuation HFA PUFFS BY MOUTH Aerosol Inhaler EVERY 4 HOURS NEEDED atorvastatin (LIPITOR) 0 09/07/2018 Active 40 mg Tablet ibuprofen Take 600 mg by 0 Activ e (ADVIL;MOTRIN) 600 mg mouth every 6 Tablet hours as needed for Pain. budesonide (RHINOCORT 1 spray by Nasal 1 Bottle 3 11/23/2018 Active AQUA) 32 mcg/actuation route daily. Lorenzo, Non-AerosolIndications: Chronic rhinitis Additional Information Patient not taking. Reported on 04/28/2021 sertraline (ZOLOFT) 100 mg Take 100 mg by mouth 0 Active Tablet daily. sertraline (Zoloft) 50 mg Tablet Take 50 mg by mouth 0 03/16/2021 Active daily. clonazePAM (KlonoPIN) 0.5 mg Take 0.5 mg by mouth 0 01/20/2021 Active Tablet 2 times daily. ergocalciferoL, vitamin D2, every week 0 09/18/2020 Active (vitamin D2) 50,000 unit Capsule methadone (Dolophine) 10 mg/mL Take 88 mg by mouth 0 12/31/2020 Active Concentrate daily. pantoprazole EC (Protonix) 40 mg Take 1 tablet by 90 tablet 3 09/22/2021 Active Tablet, Delayed Release mouth daily. (E.C.)Indications: Gastroesophageal reflux disease with esophagitis without hemorrhage Additional Information Patient not taking. Reported on 06/02/2022 fenofibrate (TRICOR) 48 mg Take 48 mg by mouth daily. 0 Active Tablet triamcinolone (Kenalog) 0.1 % Apply topically 2 times 80 g 1 06/02/2022 Active CreamIndications: Dermatitis daily. Apply to itchy areas on wrists, upper extremities clobetasoL (Temovate) 0.05 % Apply topically 2 times 60 g 1 06/02/2022 Active CreamIndications: Allergic daily. Apply to itchy areas contact dermatitis due to on chest, right foot adhesives Active Problems Problem Noted Date Herniation of lumbar intervertebral disc with radiculo nelson 10/24/2018 Overview: L4-5 right far lateral Encounters Date Type Specialty Care Team Description 06/02/2022 Office Visit Dermatology [facility] MD Allergi c contact dermatitis due to adhesives; Dermatitis from Last 3 Months Social History Tobacco Use Types Packs/Day Years [...] Date Recorded Male 09/21/2021 8:23 AM EST Last Filed Vital Signs Vital Sign Reading [...] Mass Index 29.99 09/22/2021 9:22 AM EST Plan of Treatment Upcoming Encounters Date Type Specialty Care Team Description 07/22/2022 Office Visit Dermatology [facility] MD [facility] [address]UBERT MULTANI[address] [place], [place] [address] (Wo rk) Health Maintenance Due Date Last Done Comments Covid-19 Vaccine (#1) 1984 HIV screen 1997 Hepatitis C Screening 1997 Tdap adult 1998 Tetanus vaccine 1998 Diabetes Screening (HgbA1C or Glucose) 2019 Influenza (Flu) vaccine (1 of 1 - Influenza standard 05/06/2022 series) Insurance Payer Benefit Plan / Subscriber ID Effective Dates Phone Addre ss Type [place] [id number] 2018-Presen [phone] [address] [facility] [address] [place], [place] [phone] [place] [id number] 2018-Presen [phone] [address] [place] [phone] Care Teams Compound Filler Relationship Specialty Start Date End Date Lara Sy APRN PCP - General Internal Medicine 10/09/[address] [place] [address]
--- OUTSIDE RECORDS SUMMARY | 2022-06-04 02:12 | XMS_ITS | Encounter Summary ---
:1980 Author Organization [facility] Address [address] [place] [address] Care Team Providers Name Role Phone Lara Sy RESIDENTIAL ENERGY AUDITOR Primary Care Provider Encounter Details Date Type Department Care Team Description 01/06/2021 Lab Requisition [facility] Melyssa Painter for other Pathology & MD Britni general examination Laboratory Medicine [address] [place], [place] [address] [facility] [address] [place], [place] [address] Social History Tobacco Use Types Packs/Day Years Used Date Never Assessed Sex Assigned at Date Recorded Not on file documented as of this encounter Plan of Treatment Upcoming Encounters Date Type Specialty Care Team Description 12/10/2022 Office Visit Gastroenterology and Zenon Cruz , Hepatology [address] [facility], [address] [place] [address] (Wo rk) documented as of this encounter Procedures Procedure Name Priority Date/Time Associated Diagnosis Comme nts SURGICAL PATHOLOGY Today 01/05/2021 12:30 Encounter for othe r Results for this EDT general examination procedur e are in the results section. documented in this encounter Results SURGICAL PATHOLOGY (01/05/2021 12:30 EDT) Final Diagnosis A. SMALL INTESTINE, DUODENUM, POLYP, BIOPSY: [facility] - Polypoid fragment of small intestinal mucosa. See co ent. CENTER LABORATORY B. STOMACH, ANTRUM, BIOPSY: SERVICES - Oxyntic and antral mucosa with reactive (chemical) g astropathy. C. STOMACH, BODY, BIOPSY: - Oxyntic mucosa with no significant pathologic findin gs. D. ESOPHAGUS, GASTROESOPHAGEAL JUNCTION, BIOPSY: - Squamocolumnar junction mucosa with reactive changes . - Negative for intestinal metaplasia; negative for dys plasia. E. COLON, ASCENDING, POLYP, BIOPSY: - Tubular adenoma. F. COLON, DESCENDING, POLYP, BIOPSY: - Tubular adenoma. Diagnosis Comment A: Deeper sections have been examined. [facility] Attestation By the signature [facility] Electronica lly below, the attending CENTER signed by Melinda, physician certifies LABORATORY Melisa De La Cruz MD on that they have 1) SERVICES 01/08/2021 a t 1038 personally conducted a gross and/or microscopic examination of the described specimen(s), and/or personally interpreted the results of laboratory testing of the described specimen(s), and 2) personally rendered or confirmed the above diagnosis. Clinical History Anemia [facility] Gross Description A. [facility] Received in formalin fatuma d with proper patient identification (initials W, A) and duodenal polyp is a vidse tissue (0.5 x 0.3 x 0.2 cm). Submitted intact in A1. CENTER LABORATORY B. SERVICES Received in formalin fatuma d with proper patient identification (initials W, A) and antrum are three vides to brown tissues (0.6 x 0.4 x 0.2 cm to 0.3 x 0.3 x 0.2 cm). Entirely submitted in B1. C. Received in formalin fatuma d with proper patient identification (initials W, A) and body is a vides focally brown speckled tissue (0.4 x 0.3 x 0.2 cm). Submitted intact C1. D. Received in formalin fatuma d with proper patient identification (initials W, A) and GE junction are four white focally brown speckled tissues (0.4 x 0.3 x 0.2 cm to 0.3 x 0.2 x 0.2 cm). Entirely submitted in D1. E. Received in formalin fatuma d with proper patient identification (initials W, A) and ascending colon polyp is a pale-vides tissue (0.4 x 0.3 x 0.2 cm). Submitted intact in E 1. F. Received in formalin fatuma d with proper patient identification (initials W, A) and descending colon polyp are two pale vides to brown tissues (0.3 x 0.2 x 0.1 cm and 0.3 x 0.2 x 0.1 cm). Entirely submitted in F1. Ruperto Ian 01/06/2021 8:44 Performing Lab [facility] Scanned Images [facility] Specimen Tissue - Colon, Polyp Tissue specimen (specimen) - Entire stom ach (body structure) Tissue specimen (specimen) - Entire stom ach (body structure) Tissue specimen (specimen) - Entire esop hagus (body structure) Tissue specimen (specimen) - Colon, Poly p Tissue specimen (specimen) - Colon, Poly p Performing Organization Address City/State/ZIP Code Phon e Number [facility] [address] [place] [address] SERVICES documented in this encounter Visit Diagnoses Diagnosis Encounter for other general examination documented in this encounter Care Teams Sld Educational Aide Relationship Specialty Start Date End Date Lara Sy RESIDENTIAL ENERGY AUDITOR PCP - General 09/05/20 documented as of this encounter
--- OUTSIDE RECORDS SUMMARY | 2022-06-04 02:12 | XMS_ITS | Encounter Summary ---
:1980 Author Organization [facility] Address [address] [place] [address] Care Team Providers Name Role Phone Lara Sy POLICE LIEUTENANT PATROL Primary Care Provider Encounter Details Date Type Department Care Team Description 02/16/2022 Lab Requisition [facility] Outr Resulting Lab, Pathology & Laboratory Provider [facility] [address], [place] [id number] Social History Tobacco Use Types Packs/Day Years Used Date Never Assessed Sex Assigned at Date Recorded Not on file documented as of this encounter Plan of Treatment Upcoming Encounters Date Type Specialty Care Team Description 12/10/2022 Office Visit Gastroenterology and [facility] [address] [facility], [facility] [address] [place] [address] (Wo rk) documented as of this encounter Procedures Procedure Name Priority Date/Time Associated Diagnosis Comme nts LYME AB Routine 02/16/2022 8:15 EDT Results for this procedure are i n the results section . documented in this encounter Results LYME AB (02/16/2022 8:15 EDT) Pathologist Sig nature Lyme Ab Negative Negative [facility] Specimen Blood - Venous blood (substance) Performing Organization Address City/State/ZIP Code Phon e Number [facility] [address] [place] [address] SERVICES documented in this encounter Visit Diagnoses Not on filedocumented in this encounter Care Teams Pharmacist Apprentice Relationship Specialty Start Date End Date Lara Sy, POLICE LIEUTENANT PATROL PCP - General 09/05/20 documented as of this encounter
[2022-06-07 10:08] LABS: Lyme Ab w Rflx to Lyme Confirm Negative (Negative)
[2022-06-08 19:40] LABS: Anaplasma phagocytophilum Negative (Negative); B. miyamotoi PCR Negative (Negative); Babesia divergens/MO-1 Negative (Negative); Babesia duncani Negative (Negative); Babesia microti Negative (Negative); Ehrlichia chaffeensis Negative (Negative); Ehrlichia ewingii/canis Negative (Negative); Ehrlichia muris eauclairensis Negative (Negative)
== END 2022-06-04 02:10 | disposition home or self-care (01) ==
LOC: LBO 02:09
PROVIDERS: PCP Nurse Practitioner; Visit Provider Nurse Practitioner
DX: W57.XXXA Bitten or stung by nonvenomous insect and other nonvenomous arthropods, initial encounter (principal); R21 Rash and other nonspecific skin eruption
CPT/HCPCS: 36415; 87798; 86618

== ENCOUNTER 2022-09-08 04:50 | Outpatient (CLI) | payer MEDICAID, SELFPAY ==
[2022-09-08 07:59] LABS: Calculated LDL 79 mg/dL (<100); Cholesterol 160 mg/dL (<200); HDL Cholesterol 38 mg/dL (40-60); Triglyceride 215 mg/dL (<150)
[2022-09-09 11:55] LABS: HIV-1/2 Ag & Ab Screen Negative (Negative)
[2022-09-09 12:29] LABS: Hepatitis C Ab w Rflx HCV PCR Negative (Negative)
== END 2022-09-08 04:51 | disposition home or self-care (01) ==
LOC: LBO 04:50
PROVIDERS: PCP Nurse Practitioner; Visit Provider Nurse Practitioner
DX: E78.2 Mixed hyperlipidemia (principal); Z11.4 Encounter for screening for human immunodeficiency virus [HIV]; Z11.59 Encounter for screening for other viral diseases
CPT/HCPCS: 36415; 80061; 86803; 87389

== ENCOUNTER 2022-09-13 01:46 | Outpatient (CLI) | payer MEDICAID, SELFPAY ==
--- NOTE | 2022-09-13 06:00 | ETT_ITS ---
APPROVED REPORT Exam: Exercise Treadmill Patient Location: Out-Patient Room/Bed: Stress Nurse: Maine Braun RN Ordering Provider:ERNESTO VALDES, Contact Number: [phone] BMI: 294.67 Baseline Rhythm: Sinus Rhythm Comment: T wave inversions in aVL Indications: Episodes of chest pain with mild SOB, former smoker, hyperlipidemia Medical History Medical History: sleep apnea, IBS, depression, anxiety/panic, asthma, former tobacco dependence, back pain w/ disc issues, HLD Cardiac Medications: Atorvastatin, Albuterol, Zoloft Allergies: Penicillins, sulfas Cardiac Risk Factors: +Family history, asthma, former smoker Previous Cardiac Procedures: None Pretest Chest Pain Characteristics: None Exercise History: Indeterminate Physical Disabilities: None Stress Test Details Test: Exercise stress testing was performed using a David protocol. Rest Stress HR Resting HR Supine: 67 bpm Max Heart Rate (APMHR): 177 bpm Resting HR Standin bpm Target HR (85% APMHR): 150 bpm Max HR Achieved: 162 bpm % of APMHR: 92 Recovery HR: 86 bpm HR response to stress: Normal HR response to stress BP Resting BP Supine: 132/76 mmHg Resting BP Standin/80 mmHg Max BP: 168/58 mmHg Recovery BP: 128/60 mmHg BP response to stress: Normal blood pressure response to stress. ECG Resting ECG: Sinus Rhythm Ectopy: None Comment: T wave inversion in aVL Stress ECG: Sinus Tachycardia ST Change: , No significant ST segment changes noted Lead(s): II, III, aVF, V4, V5 Stage: [address] Deviation: 2 mm Arrhythmia: Frequent PVC's Recovery ECG: Sinus Rhythm Recovery Arrhythmia: PVC's, t wave inversion in aVL Clinical Reason for Termination: Fatigue Stress Symptoms: General Fatigue Exercise duration: 9 min26 sec Highest Stage Reached: Stage 4: 4.2 mph at 16% grade. Exercise capacity: 10.89 METs Angina Score: None Gillette Treadmill Score: 9 Rate Pressure Product: [id number] Stress ECG Conclusion 1. The resting electrocardiogram was within normal limits 2. Patient exercised on the David protocol completed a workload of 10.89 METS, stopping due to fatigu e 3. Heart rate and blood pressure response to exercise. Patient achieved 92% of predicted heart rate for age 4. There was no electrocardiographic evidence of myocardial ischemia 5. There were no significant dysrhythmias 6. Gillette treadmill score is +9 which is low risk 7. Gillette treadmill score predicts low risk for adverse myocardial events. Gillette Treadmill Score is 9 which is Low risk. Stress Test Summary STAGE Time (mins) Speed (mph) Grade (%) HR BP SpO2 SYMPTOMS METS Supine 67 132/76 98% Standing 66 126/80 98% 1 3 1.7 10 120 132/74 98% 4.5 2 6 2.5 12 129 148/74 98% 7 3 9 3.4 14 158 164/68 98% 10 4 12 4.2 16 162 13 1 min recovery 128 168/58 98% 3 min recovery 92 148/64 98% 6 min recovery 86 128/60 98%
== END 2022-09-13 02:06 ==
LOC: DI 01:47
PROVIDERS: PCP Nurse Practitioner; Visit Provider Nurse Practitioner
DX: E78.2 Mixed hyperlipidemia (principal); R07.9 Chest pain, unspecified; Z87.891 Personal history of nicotine dependence
CPT/HCPCS: 93017

== ENCOUNTER 2022-11-28 15:06 | Emergency (ER) | payer MEDICAID, SELFPAY ==
[2022-11-28 15:09] VITALS: BP 129/70; PULSE 80; RESP 18; TEMP 36.1
--- NOTE | 2022-11-28 15:17 | ED.GENADUL_ITS ---
Discharge Plan Discharge Details Chief Complaint: Laceration Primary Care Provider: Lara Sy ED Provider: Kan Alfaro Home Meds and New Rx's Prescriptions: No Action albuterol sulfate [Ventolin HFA] 90 mcg/actuation HFA aerosol inhaler 2 puff inhalation Q4H PRN (Reason: shortness of breath or wheezing) Qty: 8.5 12RF sertraline 100 mg tablet 150 mg PO DAILY Qty: 135 3RF Patient Comments: not taking fenofibrate nanocrystallized 48 mg tablet 48 mg PO DAILY Qty: 90 3RF clonazepam 0.5 mg tablet 0.5 mg PO BID PRN (Reason: anxiety) Qty: 60 2RF ergocalciferol (vitamin D2) 1,250 mcg (50,000 unit) capsule 1,250 mcg PO QWEEK Qty: 12 3RF methadone 10 mg/mL concentrate 90 mg PO DAILY Patient Comments: not taking Rx Instructions: Tapering off. Now at 46 mg clobetasol 0.05 % cream 1 applic topical BID PRN (Reason: as directed for dermatitis) Patient Comments: not taking 06/02/22 atorvastatin 20 mg tablet 20 mg PO QHS Qty: 90 3RF Medical Decision Making 42-year-old male who punctured his left thumb with a knife while cutting frozen salmon. His tetanus is up-to-date. There is no motor or sensory dysfunction. The wound was liberally irrigated and cleansed, examined in a bloodless field with no evidence of foreign body and closed with tissue adhesive. I will empirically place him on 3 days of antibiotics for wound care. He is stable and appropriate for discharge HPI General Mode of arrival: ambulatory . Date/Time Provider Initiated Documentation: 11/28/22 15:07 . Limitations to Documentation: no limitations . Information obtained by: patient . History of Present Illness 42 year old M presents to the emergency department with the chief complaint of Left thumb puncture wound, described as mild, Quality is described as dull and constant, and is localized to the left and upper extremity. Patient reports no radiation. Patient started experiencing this minute(s) and it has been constant. No relieving factors improve symptom(s), No exacerbating factors reported . Patient notes denies weakness. Patient did receive the following treatments prior to arrival, other (Bandage placed) Related Data Home Medications Medication Instructions Recorded Confirmed ergocalciferol (vitamin D2) 1,250 1,250 mcg PO QWEEK #12 caps 09/18/20 08/25/22 mcg (50,000 unit) capsule methadone 10 mg/mL oral concentrate 90 mg PO DAILY 02/10/22 08/25/22 clobetasol 0.05 % topical cream 1 applic topical BID PRN as 06/03/22 08/25/22 directed for dermatitis atorvastatin 20 mg tablet 20 mg PO QHS #90 tabs 08/16/22 11/28/22 albuterol sulfate 90 mcg/actuation 2 puff inhalation Q4H PRN 08/25/22 11/28/22 aerosol inhaler (Ventolin HFA) shortness of breath or wheezing #8.5 grams clonazepam 0.5 mg tablet 0.5 mg PO BID PRN anxiety #60 tabs 08/25/22 11/28/22 fenofibrate nanocrystallized 48 mg 48 mg PO DAILY #90 tabs 08/25/22 11/28/22 tablet sertraline 100 mg tablet 150 mg PO DAILY #135 tabs 08/25/22 08/25/22 Previous Rx's Medication Instructions Recorded ergocalciferol (vitamin D2) 1,250 1,250 mcg PO QWEEK #12 caps 09/18/20 mcg (50,000 unit) capsule atorvastatin 20 mg tablet 20 mg PO QHS #90 tabs 08/16/22 albuterol sulfate 90 mcg/actuation 2 puff inhalation Q4H PRN 08/25/22 aerosol inhaler (Ventolin HFA) shortness of breath or wheezing #8.5 grams clonazepam 0.5 mg tablet 0.5 mg PO BID PRN anxiety #60 tabs 08/25/22 fenofibrate nanocrystallized 48 mg 48 mg PO DAILY #90 tabs 08/25/22 tablet sertraline 100 mg tablet 150 mg PO DAILY #135 tabs 08/25/22 Allergies Allergy/AdvReac Type Severity Reaction Status Date / Time Penicillins Allergy Severe Hives Verified 08/25/22 08:16 Sulfa (Sulfonamide Allergy Mild Hives Verified 08/25/22 08:16 Antibiotics) General Stated Complaint: Laceration OMERO: 4 Review of Systems Narrative: Tetanus is up-to-date PFSH All Active Problems Severe central sleep apnea comorbid with prescribed opioid use (Acute ~04/2022) 05/05/22 Sleep Study 08/10/22-CPAP titration Dermatitis (Acute) 06/02/22 [facility] Functional dyspepsia (Acute) [place] [facility] [place]21 Irritable bowel syndrome (Chronic) Per [facility] [place] 04[place]21 Difficulty hearing (Acute) Depression (Chronic) Daytime somnolence (Acute) Panic anxiety syndrome (Acute) Anemia (Chronic) Tubular adenoma of colon (Acute ~01/2021) Gallbladder mass (Acute) Abnormal CT of the abdomen (Acute) Mild intermittent asthma without complication (Acute 08/12/15) Social anxiety disorder (Chronic) Tobacco dependence syndrome (Acute 08/12/15) Chronic low back pain with right-sided sciatica (Acute 08/12/15) Snoring (Acute) Nausea (Acute) Left sided abdominal pain (Acute) Vitamin D deficiency (Acute) Low HDL (under 40) (Acute) Weight gain (Acute) Fatigue (Acute) Chronic pain of left elbow (Acute 08/12/15) History of rectal bleeding (Acute 08/12/15) GARY (generalized anxiety disorder) (Chronic) Major depression (Chronic) Herniation of lumbar intervertebral disc with radiculopathy (Acute) 10/24/18 Luzma Abdu- recommends transforaminal injection right L4-L5 Nasal septal deviation (Chronic) Hypertrophy of nasal turbinates (Chronic) Nasal obstruction (Chronic) Snoring (Chronic) High triglycerides (Chronic) Tobacco abuse (Acute 08/19/16) Pain in left patino (Acute 05/25/17) Hyperlipidemia, unspecified (Chronic 09/03/15) Dislocation of temporomandibular joint (Acute 08/19/16) Medical History Allergic dermatitis of right upper eyelid 06/07/22 [facility] History of alcohol abuse (08/12/15) Rhinitis with nasal crusting. 11/17/18 Dr Templeton, Otolarynology Surgical History Fx left forearm, staph, grafting (~2007) H/O esophagogastroduodenoscopy (~01/05/21) H/O rhinoplasty S/P colonoscopy (~01/05/21) 2015 Family History Mother Essential hypertension Hyperlipidemia COPD (chronic obstructive pulmonary disease) Depression Father Diabetes Essential hypertension Heart disease Hyperlipidemia Alcohol abuse former Grandfather Heart disease [place] in 70's Grandfather Personal history of malignant neoplasm Heart disease Social History Smoking/Tobacco Use Status: Former Tobacco Use Quit Date: 07/08/17 Smoking risk assessment performed?: Yes Alcohol Intake: former Drug use: Never Substance use type: does not use Adopted: No Household members: family Housing: house Number of Children: 1 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 Pleasant, well groomed, interactive. HEAD: Normocephalic, atraumatic EYES: PERRL, EOMI NECK: Full ROM, no TYSON, no menigismus CHEST/RESP: No respiratory distress EXT: Full ROM, no edema, no rash, left thumb on the volar aspect has a puncture wound approximately 2 to 3 mm. Normal distal motor and sensation intact. Neuro: Grossly normal neurologic exam, conversant, interactive. Psych: Speech fluent, thoughts congruent, affect normal Course Vital Signs Vital signs: Vital Signs Temperature 36.1 C L 11/28/22 15:09 Pulse 80 11/28/22 15:09 Respiratory Rate 18 11/28/22 15:09 Blood Pressure 129/70 11/28/22 15:09 Temperature 36.1 C L 11/28/22 15:09 Temperature Source Tympanic 11/28/22 15:09 Pulse 80 11/28/22 15:09 Respiratory Rate 18 11/28/22 15:09 Respiratory Effort Normal 11/28/22 15:11 Blood Pressure 129/70 11/28/22 15:09 Blood Pressure Position Sitting 11/28/22 15:09 Oxygen Delivery Method Room Air 11/28/22 15:09 Oxygen Flow Rate 0 11/28/22 15:09 Pain Level 1 11/28/22 15:09
[2022-11-28] MEDS: Doxycycline Hyclate 100 MG, 2 CAPS/BTL PO (15:34)
== END 2022-11-28 15:35 | disposition home or self-care (01) ==
PROVIDERS: Emergency Provider Emergency Medicine; PCP Nurse Practitioner
DX: S61.032A Puncture wound without foreign body of left thumb without damage to nail, initial encounter (principal); W26.0XXA Contact with knife, initial encounter; Y93.G1 Activity, food preparation and clean up
CPT/HCPCS: 99283; 99284

== ENCOUNTER 2022-12-22 02:08 | Outpatient (CLI) | payer MEDICAID, SELFPAY ==
--- NOTE | 2022-12-22 07:29 | DI.US_ITS ---
APPROVED REPORT EXAM: Comprehensive 2D, Doppler, and color-flow Echocardiogram Patient Location: Out-Patient Administrative And Program Specialist: Kong Vizcaino RDMS, UZAIR Indications: episodes of chest pain with mild SOB, non exertional, smoker, hyperlipidemia Other Information Study Quality: Fair. Technically limited study due to smoker. Conclusion Normal left ventricular wall thickness and chamber size. Estimated ejection fraction is 55%. Wall m otion is normal Normal right ventricular size and systolic function Both atria are normal in size There is no structural or hemodynamically significant valvular disease Wall motion Left Ventricle The left ventricle is normal size. The left ventricular systolic function is normal. The left ventric ular ejection fraction is within the normal range. There is normal left ventricular wall thickness. T here is normal LV segmental wall motion. There is no ventricular septal defect visualized. LVEF is 55 %. Right Ventricle The right ventricle is normal size. The right ventricular systolic function is normal. Unable to asse ss PA pressure. Atria The left atrium size is normal. The right atrium size is normal. The interatrial septum is intact wit h no evidence for an atrial septal defect. Aortic Valve The aortic valve is normal in structure. There is no aortic valvular stenosis. No aortic regurgitatio n is present. Mitral Valve The mitral valve is normal in structure. No evidence of mitral valve stenosis. Trace mitral regurgita tion. Tricuspid Valve The tricuspid valve is normal in structure. There is no tricuspid valve stenosis. Trace tricuspid reg urgitation. Pulmonic Valve Pulmonic valve is grossly normal in structure. There is no pulmonic valvular stenosis. There is no pu lmonic valvular regurgitation. Great Vessels The aortic root is normal in size. Ascending aorta is not well visualized. Aortic arch is normal in c aliber. IVC is normal in size and collapses >50% with inspiration. Pericardium There is no pericardial effusion. 2D Dimensions IVSD d PLAX 0.65 cm M: 0.6-1.2 LV Vol A2C d MOD 103.7 mL LVPW d PLAX 0.67 cm M: 0.6 - 1.2 LV Vol A4C d MOD 103.7 mL LVID d PLAX 5.37 cm M: 4.2 - 5.8 LA vol/ BSA A2C s A-L 35.5 mL/m2 LVDs 3.75 cm M: 2.5 - 4.0 LA vol/ BSA A4C s A-L 25.9 mL/m2 Ao Root d 2.95 cm M: 3.1 - 3.7 LA Vol/ BSA Biplane s A-L 30.9 mL/m2 LV EF Teichholz 55.6 % LA Area A4C s MOD 19.18 cm2 LVEF (Prieto's) 50.83 % M: 52 - 72 LA Area A2C s MOD 22.03 cm2 LV Volume 76.57 mL M: 62 - 150 LV EF A4C MOD 51.7 % LV Volume Index 36.28 mL/m2 M: 34 - 74 LV EF A2C MOD 52.9 % LV Vol Biplane MOD 103.9 mL LV EF Biplane MOD 50.8 % FS 29.25 % SV 52.80 mL SV Index 25.04 mL/m2 M-Mode TAPSE 2.17 cm (M/F) >1.7 LV Diastology MV E' medial 0.120 (>0.07 m/s) E/A Ratio 1.5 LV E/e MED 7.20 (<14) MV E Vmax 0.87 (0.4-1.3 m/s) MV E' lateral 0.169 (>0.1 m/s) MV A Vmax 0.60 (0.4-1.3 m/s) LV E/e LAT 5.10 (<14) MV E/A Ratio 1.37 MV E/E' medial 7.22 MV E/E' lateral 5.13 Aortic Valve LVOT Area 3.45 cm2 AoV Area Vmax 3.77 cm2 LVOT Vmax 1.27 m/s AoV Area/ BSA (Vmax) 1.79 cm2/m2 LVOT Mean Narciso. 0.83 m/s EZEKIEL Mean Narciso. 3.02 cm2 LVOT Peak Grad 6.5 mmHg EZEKIEL Mean Narciso. Index 1.43 cm2/m2 LVOT Mean Grad 3.1 mmHg LVOT VTI 0.243 m LVOT Diam s 2.05 cm AoV Vmax 1.16 m/s Velocity Ratio 1.09 AoV Mean Narciso. 0.95 m/s AoV Peak Grad 5.4 mmHg LVOT SV 84.07 mL AoV Mean Grad 3.8 mmHg AoV VTI 0.235 m AoV Area VTI 3.57 cm2 AoV Area/ BSA (VTI) 1.69 cm/m2 Mitral Valve MV DT 138 (160-240 msec) MV PHT 40 msec MV Area PHT 5.52 cm2 MV VTI 0.259 m MV Area VTI 3.25 (4.0-6.0 cm2) Pulmonary Valve PV Vmax 0.94 (0.5-1.5 m/s) RVOT Peak Gr. 1.44 mmHg PV Peak Grad 3.5 mmHg RVOT Mean Gr. 0.85 mmHg PV Mean Grad 2.2 mmHg RVOT VTI 0.137 m PV VTI 0.188 m RVOT Vmax 0.60 m/s
== END 2022-12-22 02:28 ==
LOC: DI 02:10
PROVIDERS: PCP Nurse Practitioner; Visit Provider Nurse Practitioner
DX: E78.2 Mixed hyperlipidemia (principal); R07.9 Chest pain, unspecified; Z87.891 Personal history of nicotine dependence
CPT/HCPCS: 93306

== ENCOUNTER 2023-04-27 10:27 | Outpatient (CLI) | payer MEDICAID, SELFPAY ==
[2023-04-27 09:02] LABS: Calculated LDL 127 mg/dL (<100); Cholesterol 205 mg/dL (<200); HDL Cholesterol 40 mg/dL (40-60); Triglyceride 192 mg/dL (<150)
== END 2023-04-27 10:28 | disposition home or self-care (01) ==
LOC: LBO 10:28
PROVIDERS: PCP Nurse Practitioner; Visit Provider Nurse Practitioner
DX: E78.5 Hyperlipidemia, unspecified (principal)
CPT/HCPCS: 36415; 80061

== ENCOUNTER → 2023-05-23 03:15 | Outpatient (CLI) | payer MEDICAID, SELFPAY ==
--- NOTE | 2023-05-23 07:00 | DI.MRI_ITS ---
Exam(s) MR LUMBAR SPINE WO EXAM: MR LUMBAR SPINE WO CLINICAL HISTORY: F/U 2019,BACK WITH RT RADICULOPATHY,HERNIATION,M54.10,M54.41,M51.16. TECHNIQUE: Multiplanar multisequence MRI of the Lumbar spine was performed. COMPARISON: CR BILATERAL HIPS ADULT from 10/17/2017 MR MR lumbar spine wo from 10/10/2018 FINDINGS: Bones: The last intervertebral disc space is designated the L5/S1 level for the numbering purpose of this ex amination. The vertebral body heights are well maintained. Alignment: Unremarkable. The marrow signal characteristics are unremarkable. Cord: The conus tip ends at the T12 level. It is of normal size and signal intensity. T12-L1: No focal disc herniation is present. No central spinal canal stenosis.No neural foraminal st enosis. L1-2: No focal disc herniation is present. No central spinal canal stenosis.No neural foraminal sten osis. L2-3: No focal disc herniation is present. No central spinal canal stenosis.No neural foraminal monae nosis. L3-4: Mild concentric disc bulging mild disc desiccation, new from prior.No focal disc herniation is present. No central spinal canal stenosis.No neural foraminal stenosis. L4-5: mild loss of disc height. Small endplate osteophytes and mild disc bulging eccentric toward t he right. Narrowing of the right lateral recess. Right neural foraminal narrowing. No central spin al canal stenosis. L5-S1: Stable appearance of mild disc bulging eccentric toward the right.New focal right-sided disc protrusion which appears to directly impinge on the right S1 nerve root. no central spinal canal s tenosis.No neural foraminal stenosis. The visualized SI joints and sacrum are well maintained. Soft tissues: The paraspinal soft tissues are unremarkable. IMPRESSION: New focal right-sided disc protrusion with impingement on the right S1 nerve root. DATA REPOSITORY:
== END ==
PROVIDERS: PCP Nurse Practitioner; Visit Provider Nurse Practitioner
DX: G89.29 Other chronic pain (principal); M51.16 Intervertebral disc disorders with radiculopathy, lumbar region; M54.41 Lumbago with sciatica, right side
CPT/HCPCS: 72148

== ENCOUNTER 2023-07-29 15:50 | Emergency (ER) | payer MEDICAID, SELFPAY ==
[2023-07-29 16:00] VITALS: BP 157/96; PULSE 95; RESP 15; TEMP 36.6; O2SAT 98
--- NOTE | 2023-07-29 16:00 | DI.RAD_ITS ---
Exam(s) XR KNEE RT 4V AP,LAT,OTILIA,PAT EXAM: XR KNEE RT 4V AP,LAT,OTILIA,PAT CLINICAL HISTORY: R knee pain. TECHNIQUE: 2D digital imaging was performed of the right knee. Four views obtained. Merchant, AP, la teral and PA tunnel views were obtained. COMPARISON: No exams were available for comparison FINDINGS: BONES: No acute fracture is present. No bony destructive lesion is seen. JOINTS: The knee is normally aligned. There is a small joint effusion. SOFT TISSUE: Normal. IMPRESSION: No acute fracture or dislocation. Small joint effusion. DATA REPOSITORY: RADIATION DOSE DELIVERED:
--- NOTE | 2023-07-29 17:09 | DI.VRAD_ITS ---
PROCEDURE INFORMATION: Exam: XR Left Knee Exam date and time: 07/29/2023 4:54 PM Age: 43 years old Clinical indication: Pain; Knee TECHNIQUE: Imaging protocol: Radiologic exam of the left knee. Views: 4 or more views. COMPARISON: No relevant prior studies available. FINDINGS: Bones/joints: There is no evidence of acute fracture in any of the visualized osseous structures.. There is no evidence of malalignment or dislocation of any visualized joint. Soft tissues: Normal. IMPRESSION: 1. There is no evidence of acute fracture in any of the visualized osseous structures.. 2. There is no evidence of malalignment or dislocation of any visualized joint. Dictated and Authenticated by: Darrius Castro MD. Ordering:EMILY Ramírez MD
--- NOTE | 2023-07-29 17:16 | ED.GENADUL_ITS ---
Discharge Plan Disposition Patient Disposition: Home Discharge Details Clinical Impression: Sprain of right knee Primary Care Provider: aLra Sy ED Provider: Darrell Fatima Home Meds and New Rx's Prescriptions: Continued albuterol sulfate [Ventolin HFA] 90 mcg/actuation HFA aerosol inhaler 2 puff inhalation Q4H PRN (Reason: shortness of breath or wheezing) Qty: 8.5 12RF fenofibrate nanocrystallized 48 mg tablet 48 mg PO DAILY Qty: 90 3RF triamcinolone acetonide 0.1 % cream 1 applic topical BID PRN (Reason: eczema on forearms bilaterally) Qty: 80 3RF ergocalciferol (vitamin D2) 1,250 mcg (50,000 unit) capsule 1,250 mcg PO QWEEK Qty: 12 3RF clonazepam 0.5 mg tablet 0.5 mg PO TID PRN (Reason: anxiety) Qty: 90 2RF ibuprofen 800 mg tablet 800 mg PO TID PRN (Reason: pain) Qty: 90 3RF methocarbamol 750 mg tablet 750 mg PO TID PRN (Reason: back pain) Qty: 90 3RF buprenorphine-naloxone 2-0.5 mg film 1 film buccal DAILY MDD 6mg Qty: 28 2RF Rx Instructions: place 1 strip/tab under (each) side of tongue. Take in addition to 4mg film for a total of 6mg/daily. buprenorphine-naloxone 4-1 mg film 1 film buccal Q24H MDD 6mg Qty: 28 2RF Rx Instructions: place 1 strip/tab under (each) side of tongue. Take in addition with 2mg film for a total of 6mg daily. atorvastatin 40 mg tablet 40 mg PO QHS Qty: 90 3RF clobetasol 0.05 % cream 1 applic topical BID PRN (Reason: as directed for dermatitis) Patient Comments: not taking 06/02/22 Discharge Instructions Instructions: Knee Sprain (ED) Additional Instructions: You were seen in the emergency department for the sprain of your right knee from hiking the other day, there is no acute abnormality or fracture seen on x-ray, you may need to follow-up with orthopedics to diagnose an internal knee injury like a possible meniscus tear or ligamentous injury. Please rest, ice, compress and elevate your knee as often as possible over the next 4 to 5 days. Please use therapeutic dosing of Tylenol (acetamenophen) & Advil (ibuprofen) in an alternating fashion as follows: Take 1000mg of Tylenol every 6 hours without missing doses- that is 4 times per day. Long-Term in between the Tylenol dosings, take 400-600mg of Advil also on a 6 hour schedule, that is also 4 times per day. The daily maximum dosing of Tylenol is 4000mg, and the daily maximum dosing of Advil is 2400mg. This is safe to do for weeks. Please note that some common cold medications & prescription pain medications may contain acetamenophen and you need to read OTC drug labels and factor that in to maximum daily dosings. Please return to the emergency department for any severe increasing knee pain despite treatment especially with complete numbness below the knee or increasing redness and warmth with fever, and pain with passive ROM of the knee. Discharge Data Discharge Date/Time-TO BE ENTERED AT DEPARTURE: 07/29/23 17:29 Medical Decision Making This dictation utilizes [id number] dictation software and may contain unedited grammatical errors. 43 y/o M presents to ED today with a chief complaint of right knee pain after hiking. Onset and characteristics include locking sensation intermittently, tolerating WB, no trauma. Patients' medical history: noncontributory. Family and social history: noncontributory. Pertinent exam findings / vital signs include tenderness to palpation right knee, Lilia negative, Gamal negative, no pain with varus valgus forces, no pain with passive range of motion, no warmth to touch, no signs of DVT. Differential / pathologies of concern include fracture, arthritis, menicus tear, sprain/strain, bursitis, tendonitis, internal knee injury. Diagnostic studies of: -XR R Knee - no acute fracture. Interventions of: -none. ED Course: Acute uncomplicated illness/injury without systemic symptoms. Findings not consistent with fracture, NV Compromise, septic arthritis, possible meniscus injury with patients history of locking sensation. Disposition of Sprain of Right Knee. Assessment/Plan: Counseled the patient on obtaining an [id number] knee brace as well as performing RICE therapy and therapeutic dosing of Tylenol and ibuprofen and following up with orthopedics for investigation of possible meniscus pathology. Patient verbalized understanding of the plan and return to ED criteria and engaged in shared decision making. Medical Records Medical records reviewed: Yes I reviewed the patient's medical records. Imaging Data Radiologic Study: Imaging: X-Ray My impression: No fracture Radiologist's impression: [facility] shows no acute abnormality- they have typo in report - states L knee, it was in fact R knee and was ordered as such. HPI General Date/Time Provider Initiated Documentation: 07/29/23 16:14 . HPI Narrative: 43 year-old male presents to ED today by POV/ambulating, R-leg dominant, with a chief complaint of R knee pain with onset noted for the past few days after hiking. Quality described as sometimes locking up, stabbing pains to anterior knee above and below patella, no radiation to calf tenderness, unilateral leg swelling, red or hot to touch joint, medial thigh tenderness, coolness of foot, or inability to weight-bear. Severity is described as 5/10. Palliating factors include nothing specific attempted. Provoking factors include nothing specific. Events leading up to the incident/Associated Symptoms: Patient denies prior surgical history to this knee. Patient not anticoagulated. Related Data Home Medications Medication Instructions Recorded Confirmed clobetasol 0.05 % topical cream 1 applic topical BID PRN as 06/03/22 07/29/23 directed for dermatitis albuterol sulfate 90 mcg/actuation 2 puff inhalation Q4H PRN 08/25/22 07/29/23 aerosol inhaler (Ventolin HFA) shortness of breath or wheezing #8.5 grams fenofibrate nanocrystallized 48 mg 48 mg PO DAILY #90 tabs 08/25/22 07/29/23 tablet triamcinolone acetonide 0.1 % 1 applic topical BID PRN eczema on 12/15/22 07/29/23 topical cream forearms bilaterally #80 grams ergocalciferol (vitamin D2) 1,250 1,250 mcg PO QWEEK #12 caps 01/05/23 07/29/23 mcg (50,000 unit) capsule clonazepam 0.5 mg tablet 0.5 mg PO TID PRN anxiety #90 tabs 04/25/23 07/29/23 ibuprofen 800 mg tablet 800 mg PO TID PRN pain #90 tabs 04/25/23 07/29/23 methocarbamol 750 mg tablet 750 mg PO TID PRN back pain #90 04/25/23 07/29/23 tabs atorvastatin 40 mg tablet 40 mg PO QHS #90 tabs 05/24/23 07/29/23 buprenorphine 2 mg-naloxone 0.5 mg 1 film buccal DAILY #28 ea 05/24/23 07/29/23 sublingual film buprenorphine 4 mg-naloxone 1 mg 1 film buccal Q24H #28 ea 05/24/23 07/29/23 sublingual film Previous Rx's Medication Instructions Recorded albuterol sulfate 90 mcg/actuation 2 puff inhalation Q4H PRN 08/25/22 aerosol inhaler (Ventolin HFA) shortness of breath or wheezing #8.5 grams fenofibrate nanocrystallized 48 mg 48 mg PO DAILY #90 tabs 08/25/22 tablet triamcinolone acetonide 0.1 % 1 applic topical BID PRN eczema on 12/15/22 topical cream forearms bilaterally #80 grams ergocalciferol (vitamin D2) 1,250 1,250 mcg PO QWEEK #12 caps 01/05/23 mcg (50,000 unit) capsule clonazepam 0.5 mg tablet 0.5 mg PO TID PRN anxiety #90 tabs 04/25/23 ibuprofen 800 mg tablet 800 mg PO TID PRN pain #90 tabs 04/25/23 methocarbamol 750 mg tablet 750 mg PO TID PRN back pain #90 04/25/23 tabs atorvastatin 40 mg tablet 40 mg PO QHS #90 tabs 05/24/23 buprenorphine 2 mg-naloxone 0.5 mg 1 film buccal DAILY #28 ea 05/24/23 sublingual film buprenorphine 4 mg-naloxone 1 mg 1 film buccal Q24H #28 ea 05/24/23 sublingual film Allergies Allergy/AdvReac Type Severity Reaction Status Date / Time Penicillins Allergy Severe Hives Verified 07/29/23 16:03 Sulfa (Sulfonamide Allergy Mild Hives Verified 07/29/23 16:03 Antibiotics) General Stated Complaint: Orthopedic OMERO: 3 Review of Systems All systems reviewed & are unremarkable except as noted in HPI and below PFSH All Active Problems (Updated 07/29/23 @ 17:19 by HOLLAND Feliz) Sprain of right knee (Acute) Anxiety (Chronic) Opioid dependence on agonist therapy (Acute) Severe central sleep apnea comorbid with prescribed opioid use (Acute ~04/2022) 05/05/22 Sleep Study 08/10/22-CPAP titration Dermatitis (Acute) 06/02/22 Derm Functional dyspepsia (Acute) From [facility] [place] Gastro note from 04/28/21 Irritable bowel syndrome (Chronic) Per [facility] [place] Gastro note from 04/28/21 Difficulty hearing (Acute) Depression (Chronic) Daytime somnolence (Acute) Panic anxiety syndrome (Acute) Anemia (Chronic) Tubular adenoma of colon (Acute ~01/2021) Gallbladder mass (Acute) Abnormal CT of the abdomen (Acute) Mild intermittent asthma without complication (Acute 08/12/15) Social anxiety disorder (Chronic) Tobacco dependence syndrome (Acute 08/12/15) Chronic low back pain with right-sided sciatica (Acute 08/12/15) Snoring (Acute) Nausea (Acute) Left sided abdominal pain (Acute) Vitamin D deficiency (Acute) Low HDL (under 40) (Acute) Weight gain (Acute) Fatigue (Acute) Chronic pain of left elbow (Acute 08/12/15) History of rectal bleeding (Acute 08/12/15) GARY (generalized anxiety disorder) (Chronic) Major depression (Chronic) Herniation of lumbar intervertebral disc with radiculopathy (Acute) 10/24/18 Luzma Abdu- recommends transforaminal injection right L4-L5 Nasal septal deviation (Chronic) Hypertrophy of nasal turbinates (Chronic) Nasal obstruction (Chronic) Snoring (Chronic) High triglycerides (Chronic) Tobacco abuse (Acute 08/19/16) Pain in left patino (Acute 05/25/17) Hyperlipidemia, unspecified (Chronic 09/03/15) Dislocation of temporomandibular joint (Acute 08/19/16) Medical History Allergic dermatitis of right upper eyelid 06/07/22 [facility] History of alcohol abuse (08/12/15) Rhinitis with nasal crusting. 11/17/18 Dr Templeton, Otolarynology Surgical History Fx left forearm, staph, grafting (~2007) H/O esophagogastroduodenoscopy (~01/05/21) H/O rhinoplasty S/P colonoscopy (~01/05/21) 2016 Family History Mother Essential hypertension Hyperlipidemia COPD (chronic obstructive pulmonary disease) Depression Father Diabetes Essential hypertension Heart disease Hyperlipidemia Alcohol abuse former Grandfather Heart disease [place] in 70's Grandfather Personal history of malignant neoplasm Heart disease Social History (Updated 05/24/23 @ 16:28 by Kelsie Holland LPN) Smoking/Tobacco Use Status: Former Tobacco Use Quit Date: 07/08/17 Smoking risk assessment performed?: Yes Alcohol Intake: current Alcohol Intake frequency: a few times a week Alcohol type: beer Counseling given: No Drug use: Daily Substance use type: marijuana Counseling given: No Counseling provided: none Adopted: No Household members: family Housing: house Number of Children: 2 Communication Needs: None Education Level: high school Do you need help understanding health information?: Rarely 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: male What is your relationship status?: How often do you talk on the phone with friends or family?: twice per week How often do you get together with friends or relatives?: three or more times per week Panel score (0-1 are the most socially isolated patients): 2 NHANES result reviewed/action taken: No What type of physical activity do you participate in: walking Duration: 15-30 minutes/day Frequency: 3-4 times per week Seatbelt use: always Helmet use: Yes Drive intox or ride w/intox trackless trolley driver: No Water heater temp set <120 deg: Yes Working smoke detector in home: Yes Fire extinguisher in home: Yes Carbon monox detector in home: Yes Firearms in home: No Do you feel safe at home: Yes Do you feel safe in your relationship?: Yes Exam Narrative Exam Narrative: GENERAL APPEARANCE: Well-nourished, non-toxic, awake and alert, atraumatic, no acute distress. SKIN: Warm, pink, dry, intact, without rashes/lesions/ulcerations. HEAD: Normocephalic, atraumatic, normal hair distribution for gender/age. EYES: Pupils PERRLA, EOMs intact without nystagmus, normal conjunctiva, no exudates on lids/lashes. ENT: Nares patent, no circumoral cyanosis, no facial swelling NECK: Supple, trachea midline, painless cervical ROM. LUNGS/CHEST: Non-labored respirations, normal A/P diameter, symmetrical expansion, no chest wall deformity HEART (CV/PV): No peripheral edema, no JVD. ABDOMEN: Soft, non-distended, no guarding. MSK: Normal ROM, no swelling/deformity to bilateral UEs or LEs, moving all extremities without weakness, no cyanosis, spine midline without tenderness, normal curvature. R LE: Tenderness to palpation at the right knee joint line, no pain with varus valgus forces, Lilia negative, anterior drawer/Gamal negative, full range of motion, some crepitus with palpation of the patella and flexion, no calf tenderness, no skin changes distal to the knee, neurovascularly intact distal lower extremity, no medial thigh tenderness, no erythema or warmth to touch, no pain with passive ROM NEURO: Mental Status AAOx4 - alert to person, place, time, events No facial droop, no forehead involvement. Motor: No focal weakness - strength 5/5 in bilateral UEs and LEs, proximal and distal, symmetric. Sensory: sensation intact to light touch globally. Gait normal: patient ambulated without ataxia into ED room. PSYCH: euthymic, cooperative, pleasant, appropriate speech Course Vital Signs Vital signs: Vital Signs Temperature 36.6 C 07/29/23 16:00 Pulse 95 H 07/29/23 16:00 Respiratory Rate 15 07/29/23 16:00 Blood Pressure 157/96 H 07/29/23 16:00 Pulse Oximetry 98 07/29/23 16:00 Temperature 36.6 C 07/29/23 16:00 Temperature Source Tympanic 07/29/23 16:00 Pulse 95 H 07/29/23 16:00 Respiratory Rate 15 07/29/23 16:00 Respiratory Effort Normal 07/29/23 16:16 Blood Pressure 157/96 H 07/29/23 16:00 Blood Pressure Position Sitting 07/29/23 16:00 Pulse Oximetry 98 07/29/23 16:00 Oxygen Delivery Method Room Air 07/29/23 16:00 Oxygen Flow Rate 0 07/29/23 16:00 Pain Level 5 07/29/23 16:00
[2023-07-29 17:29] VITALS: BP 148/88; PULSE 73; RESP 16; O2SAT 97
== END 2023-07-29 17:29 | disposition home or self-care (01) ==
PROVIDERS: Emergency Provider Physician Assistant; PCP Nurse Practitioner
DX: S83.91XA Sprain of unspecified site of right knee, initial encounter (principal); X58.XXXA Exposure to other specified factors, initial encounter
CPT/HCPCS: 99283; 73564

== ENCOUNTER 2023-08-10 02:58 | Outpatient (CLI) | payer MEDICAID, SELFPAY ==
[2023-08-10 09:23] LABS: Hemoglobin A1C 5.4 % (<5.7)
[2023-08-10 09:40] LABS: Calculated LDL 112 mg/dL (<100); Cholesterol 175 mg/dL (<200); HDL Cholesterol 34 mg/dL (40-60); Triglyceride 148 mg/dL (<150)
== END 2023-08-10 02:59 | disposition home or self-care (01) ==
LOC: LBO 02:58
PROVIDERS: PCP Nurse Practitioner; Visit Provider Nurse Practitioner
DX: E78.5 Hyperlipidemia, unspecified (principal); R73.01 Impaired fasting glucose
CPT/HCPCS: 36415; 80061; 83036

== ENCOUNTER → 2023-09-08 02:19 | Outpatient (CLI) | payer MEDICAID, SELFPAY ==
--- NOTE | 2023-09-08 09:15 | DI.MRI_ITS ---
Exam(s) MR LOWER JOINT RT WO EXAM: MR LOWER JOINT RT WO CLINICAL HISTORY: PAIN,acute medial meniscus tear,s83.249a. TECHNIQUE: Multiplanar multisequence MRI was performed. COMPARISON: CR,XR XR KNEE RT 4V AP,LAT,OTILIA,PAT from 07/29/2023 FINDINGS: BONES: There is no fracture or contusion pattern. JOINTS: Articular cartilage is unremarkable. No effusion is present. TENDONS: Extensor mechanism: Unremarkable. Medial retinaculum: Unremarkable. Lateral retinaculum: Unremarkable. Popliteus: Unremarkable. MUSCLES: Unremarkable. MENISCI: The medial meniscus is unremarkable. The lateral meniscus is unremarkable. SOFT TISSUES: Unremarkable. LIGAMENTS: Anterior Cruciate: There is hyperintense signal seen within the anterior cruciate ligament which may represent a sprain or partial tear. No evidence of a full-thickness ACL tear is seen. Posterior Cruciate: Unremarkable. Medial Collateral:Unremarkable. Lateral Collateral: Unremarkable. OTHER: IMPRESSION: 1. Findings suspicious for a partial tear/sprain of the anterior cruciate ligament. 2. No evidence of a meniscal tear. DATA REPOSITORY:
== END ==
PROVIDERS: PCP Nurse Practitioner; Visit Provider Student in an Organized Health Care Education/Training Program
DX: S83.241A Other tear of medial meniscus, current injury, right knee, initial encounter (principal); X58.XXXA Exposure to other specified factors, initial encounter
CPT/HCPCS: 73721

== ENCOUNTER 2024-02-16 01:05 | Outpatient (CLI) | payer MEDICAID, SELFPAY ==
[2024-02-16 12:11] LABS: Abs Immature Grans 0.03 10^3/uL (0.0-0.06); Absolute Basophil Count 0.07 10^3/uL (0.0-0.2); Absolute Eosinophil Count 0.15 10^3/uL (0.0-0.7); Absolute Lymphocyte Count 2.51 10^3/uL (1.2-3.4); Absolute Monocyte Count 0.51 10^3/uL (0.1-0.8); Absolute Neutrophil Count 5.45 10^3/uL (1.2-6.7); Basophils % 0.8 %; Eosinophils % 1.7 %; HCT 44.3 % (40.0-50.0); HGB 14.7 g/dL (13.5-17.5); Immature Grans % 0.3 %; Lymphocytes % 28.8 %; MCH 30.3 pg (27.0-33.0); MCHC 33.2 % (32.0-36.0); MCV 91 fL (80-95); MPV 9.9 fL (8.0-11.0); Monocytes % 5.8 %; Neutrophils % 62.6 %; Platelet Count 308 10^3/uL (130-400); RBC 4.85 10^6/uL (4.36-5.78); RDW 11.9 % (11.8-14.1); RDW-SD 39.8 fL; WBC 8.72 10^3/uL (4.4-10.8)
[2024-02-16 12:37] LABS: ALT 48 U/L (16-63); AST 26 U/L (15-37); Albumin 4.8 g/dL (3.4-5.0); Alkaline Phosphatase 77 U/L (46-116); Anion Gap 10.3 mmol/L (3-11); BUN 12 mg/dL (7-18); Bilirubin, Total 0.6 mg/dL (0.2-1.0); CO2 27.7 mmol/L (21.0-32.0); CREATININE 1.3 mg/dL (0.70-1.30); Calcium 9.5 mg/dL (8.5-10.1); Calculated LDL 81 mg/dL (<100); Chloride 103 mmol/L (98-107); Cholesterol 183 mg/dL (<200); Estimated GFR 69.47 (mL/min/1.73m2); Ferritin 130 ng/mL (26-388); Glucose 128 mg/dL (74-106); HDL Cholesterol 35 mg/dL (40-60); Potassium 4.5 mmol/L (3.5-5.1); Sodium 141 mmol/L (136-145); Total Protein 8.4 g/dL (6.4-8.2); Triglyceride 339 mg/dL (<150)
== END 2024-02-16 01:06 | disposition home or self-care (01) ==
LOC: LBO 01:05
PROVIDERS: PCP Nurse Practitioner; Referring Provider Nurse Practitioner; Visit Provider Nurse Practitioner
DX: E78.1 Pure hyperglyceridemia (principal); E78.2 Mixed hyperlipidemia; K62.5 Hemorrhage of anus and rectum
CPT/HCPCS: 36415; 80053; 80061; 82728; 85025

== ENCOUNTER → 2024-04-06 01:05 | Outpatient (CLI) | payer MEDICAID, SELFPAY ==
--- NOTE | 2024-04-06 06:26 | DI.US_ITS ---
Exam(s) US ABDOMEN EXAM: US ABDOMEN CLINICAL HISTORY: f/u abnl CT diarrhea, hyperlipidemia, gb mass, IBS, E78.2, R93.2 TECHNIQUE: Ultrasound abdomen performed using standard protocol. COMPARISON: CT ABD PELVIS WITH CONTRAST from 10/26/[address] ABDOMEN PELVIS W from 01/01/2021 US US ABDOMEN from 01/06/2021 FINDINGS: LIVER: Normal size.. Increased liver echogenicity and decreased through transmission consistent with severe with hepatic steatosis. Posterior portions of the liver are not well seen. No focal liver l esions are seen. GALLBLADDER: Defer aging CABG again identified. There is no visible mass. No change from CT dated 2 014. No evidence of cholelithiasis. No evidence of wall thickening. No pericholecystic fluid identif ied. MISHRA'S SIGN: Negative. BILIARY SYSTEM: No intrahepatic or extrahepatic biliary ductal dilation. KIDNEYS: Kidneys are symmetric in size. No evidence of renal calculi. No evidence of hydronephrosis. No renal mass identified. PANCREAS: Normal where visualized. SPLEEN: Not enlarged. ABDOMINAL AORTA AND IVC: Visualized portions normal caliber. ASCITES: None seen. IMPRESSION: Stable appearance of Phrygian cap. DATA REPOSITORY:
== END ==
PROVIDERS: PCP Nurse Practitioner; Visit Provider Surgery
DX: E78.2 Mixed hyperlipidemia (principal); R93.2 Abnormal findings on diagnostic imaging of liver and biliary tract; K82.8 Other specified diseases of gallbladder; K58.9 Irritable bowel syndrome, unspecified; R93.5 Abnormal findings on diagnostic imaging of other abdominal regions, including retroperitoneum
CPT/HCPCS: 76700

== ENCOUNTER 2024-04-27 07:03 | Emergency (ER) | payer MEDICAID, SELFPAY ==
[2024-04-27 07:06] VITALS: BP 152/89; PULSE 81; RESP 16; TEMP 37.1; O2SAT 100
--- NOTE | 2024-04-27 07:32 | DI.RAD_ITS ---
Exam(s) XR HAND RT COMPLETE EXAM: XR HAND RT COMPLETE CLINICAL HISTORY: right hand pain. TECHNIQUE: 2D digital imaging was performed. Three views. COMPARISON: No exams were available for comparison FINDINGS: BONES: No acute fracture is present. No bony destructive lesion is seen. JOINTS: No dislocation present. SOFT TISSUE: Normal. IMPRESSION: Unremarkable radiographs of the right hand. DATA REPOSITORY: RADIATION DOSE DELIVERED:
[2024-04-27] MEDS: Ibuprofen 600 MG TAB PO (07:53)
--- NOTE | 2024-04-27 08:18 | DI.VRAD_ITS ---
PROCEDURE INFORMATION: Exam: XR Right Hand Exam date and time: 04/27/2024 7:28 AM Age: 43 years old Clinical indication: Injury or trauma; Other: Injured at work; Work related; Sprain or strain; Patient HX: Right hand pain. TECHNIQUE: Imaging protocol: Radiologic exam of the right hand. Views: 3 or more views. COMPARISON: No relevant prior studies available. FINDINGS: Bones/joints: No acute or suspicious osseous abnormalities. No articular abnormalities. Soft tissues: Mild soft tissue swelling suggested of the index finger and region of the thenar eminence. IMPRESSION: No evidence of acute osseous injury. Dictated and Authenticated by: Chapis Means MD. Ordering:[facility] Suma Lomeli MD
--- NOTE | 2024-04-27 08:49 | ED.GENADUL_ITS ---
Discharge Plan Disposition Patient Disposition: Home Condition: Stable Discharge Details Clinical Impression: Injury of index finger Primary Care Provider: Lara Sy ED Provider: Funmi Moise Home Meds and New Rx's Prescriptions: New meloxicam 7.5 mg tablet 7.5 mg PO DAILY Qty: 14 0RF Rx Instructions: take with food No Action atorvastatin 40 mg tablet 40 mg PO QHS Qty: 90 3RF albuterol sulfate [Ventolin HFA] 90 mcg/actuation HFA aerosol inhaler See Rx Instructions .ROUTE .COMPLEX Qty: 18 12RF Dose Instruction: INHALE TWO PUFFS BY MOUTH EVERY 4 HOURS NEEDED FOR SHORTNESS OF BREATH OR WHEEZING Rx Instructions: INHALE TWO PUFFS BY MOUTH EVERY 4 HOURS NEEDED FOR SHORTNESS OF BREATH OR WHEEZING clonazepam 0.5 mg tablet 0.5 mg PO BID PRN (Reason: anxiety) Qty: 56 5RF fenofibrate nanocrystallized 48 mg tablet 48 mg PO DAILY ergocalciferol (vitamin D2) 1,250 mcg (50,000 unit) capsule 1,250 mcg PO QWEEK Qty: 12 3RF clobetasol 0.05 % cream 1 applic topical BID PRN (Reason: as directed for dermatitis) fenofibrate nanocrystallized 48 mg tablet 48 mg PO DAILY Qty: 90 3RF Discharge Instructions Instructions: Common Finger Injuries (DC) Additional Instructions: * Start medication once daily. Take with food as this can be upsetting to your stomach. Do not take this medication with any additional NSAIDs * Use the medication for 2 weeks. Follow-up for reevaluation if your symptoms have not improved by then Discharge Data Discharge Date/Time-TO BE ENTERED AT DEPARTURE: 04/27/24 08:01 [facility] General Date/Time Provider Initiated Documentation: 04/27/24 07:19 . Limitations to Documentation: no limitations . Information obtained by: patient . HPI Narrative: 43-year-old gentleman without significant past medical history presents for evaluation of right index finger pain. He reports that about 2 weeks ago he dropped something while working on his car and he caught it with his right hand. He reports having some finger pain at that time, the pain has not gotten any better. He localizes the pain to the MCP joint on the backside of his hand. He states that he can see a lump there. He denies any numbness tingling or open wound. He states that he just feels better if he keeps his finger straight. Related Data Home Medications ?Medication ?Instructions ?Recorded ?Confirmed clobetasol 0.05 % topical cream 1 applic topical BID PRN as 06/03/22 04/27/24 directed for dermatitis ergocalciferol (vitamin D2) 1,250 1,250 mcg PO QWEEK #12 caps 01/05/23 04/27/24 mcg (50,000 unit) capsule fenofibrate nanocrystallized 48 mg 48 mg PO DAILY #90 tabs 11/02/23 04/27/24 tablet albuterol sulfate 90 mcg/actuation See Rx Instructions .Route 01/25/24 04/27/24 aerosol inhaler (Ventolin HFA) .COMPLEX #18 grams atorvastatin 40 mg tablet 40 mg PO QHS #90 tabs 01/25/24 04/27/24 clonazepam 0.5 mg tablet 0.5 mg PO BID PRN anxiety #56 tabs 01/25/24 04/27/24 fenofibrate nanocrystallized 48 mg 48 mg PO DAILY 04/02/24 04/27/24 tablet meloxicam 7.5 mg tablet 7.5 mg PO DAILY #14 tabs 04/27/24 Previous Rx's ?Medication ?Instructions ?Recorded ergocalciferol (vitamin D2) 1,250 1,250 mcg PO QWEEK #12 caps 01/05/23 mcg (50,000 unit) capsule fenofibrate nanocrystallized 48 mg 48 mg PO DAILY #90 tabs 11/02/23 tablet albuterol sulfate 90 mcg/actuation See Rx Instructions .Route 01/25/24 aerosol inhaler (Ventolin HFA) .COMPLEX #18 grams atorvastatin 40 mg tablet 40 mg PO QHS #90 tabs 01/25/24 clonazepam 0.5 mg tablet 0.5 mg PO BID PRN anxiety #56 tabs 01/25/24 meloxicam 7.5 mg tablet 7.5 mg PO DAILY #14 tabs 04/27/24 Allergies Allergy/AdvReac Type Severity Reaction Status Date / Time Penicillins Allergy Severe Hives Verified 04/27/24 07:09 Sulfa (Sulfonamide Allergy Mild Hives Verified 04/27/24 07:09 Antibiotics) General Stated Complaint: Orthopedic OMERO: 4 Exam Narrative Exam Narrative: Review of Systems: All systems reviewed & are unremarkable except as noted in HPI and below Well-developed, no acute distress RRR Unlabored respiratory effort Right index finger without deformity, neurovascularly intact, good refill cap refill, full range of motion and good strength in all distributions and movements of the finger and hand Course Vital Signs Vital signs: Vital Signs Temperature 37.1 C 04/27/24 07:06 Pulse 81 04/27/24 07:06 Respiratory Rate 16 04/27/24 07:06 Blood Pressure 152/89 H 04/27/24 07:06 Pulse Oximetry 100 04/27/24 07:06 Temperature 37.1 C 04/27/24 07:06 Temperature Source Temporal Artery Scan 04/27/24 07:06 Pulse 81 04/27/24 07:06 Respiratory Rate 16 04/27/24 07:06 Respiratory Effort Normal 04/27/24 07:11 Blood Pressure 152/89 H 04/27/24 07:06 Pulse Oximetry 100 04/27/24 07:06 Medical Decision Making Evaluation of right index finger pain. Patient is right-hand dominant. There is no obvious trauma or deformity to the finger. Initial considerations include fracture, tendinitis, arthritis, gout less likely given the lack of symptoms. X-ray obtained, no obvious abnormality there. Recommend treatment with NSAIDs for 2 weeks, Mobic prescribed. And I recommend reevaluation if symptoms have not improved after the 2-week course of Mobic. Quality:SDOH Health Related Social Needs: No Data to Display PFSH All Active Problems Injury of index finger (Acute) Anxiety disorder, unspecified (Acute) Chondromalacia patellae of right knee (Acute) Tendinitis of right quadriceps tendon (Acute) Anxiety (Chronic) Severe central sleep apnea comorbid with prescribed opioid use (Acute ~04/2022) 05/05/22 Sleep Study 08/10/22-CPAP titration Dermatitis (Acute) 06/02/22 [facility] Functional dyspepsia (Acute) From [facility] Gastro note from 04/28/21 Irritable bowel syndrome (Chronic) Per [facility] Gastro note from 04/28/21 Difficulty hearing (Acute) Depression (Chronic) Daytime somnolence (Acute) Panic anxiety syndrome (Acute) Tubular adenoma of colon (Acute ~01/2021) Mild intermittent asthma without complication (Acute 08/12/15) Social anxiety disorder (Chronic) Tobacco dependence syndrome (Acute 08/12/15) Chronic low back pain with right-sided sciatica (Acute 08/12/15) Snoring (Acute) Nausea (Acute) Left sided abdominal pain (Acute) Vitamin D deficiency (Acute) Low HDL (under 40) (Acute) Weight gain (Acute) Fatigue (Acute) Chronic pain of left elbow (Acute 08/12/15) History of rectal bleeding (Acute 08/12/15) GARY (generalized anxiety disorder) (Chronic) Major depression (Chronic) Herniation of lumbar intervertebral disc with radiculopathy (Acute) 10/24/18 Luzma Schwartzu- recommends transforaminal injection right L4-L5 Nasal septal deviation (Chronic) Hypertrophy of nasal turbinates (Chronic) Nasal obstruction (Chronic) Snoring (Chronic) High triglycerides (Chronic) Tobacco abuse (Acute 08/19/16) Pain in left patino (Acute 05/25/17) Hyperlipidemia, unspecified (Chronic 09/03/15) Dislocation of temporomandibular joint (Acute 08/19/16) Medical History Allergic dermatitis of right upper eyelid 06/07/22 [facility] History of alcohol abuse (08/12/15) Rhinitis with nasal crusting. 11/17/18 Dr Templeton, Otolarynology Surgical History H/O esophagogastroduodenoscopy (~01/05/21) S/P colonoscopy (~01/05/21) 2015 H/O rhinoplasty Fx left forearm, staph, grafting (~2007) Family History Mother Essential hypertension Hyperlipidemia COPD (chronic obstructive pulmonary disease) Depression Father Diabetes Essential hypertension Heart disease Hyperlipidemia Alcohol abuse former Grandfather Heart disease [place] in 70's Grandfather Personal history of malignant neoplasm Heart disease Social History Smoking/Tobacco Use Status: Former Tobacco Use Quit Date: 07/08/17 Smoking risk assessment performed?: Yes Alcohol Intake: current Alcohol Intake frequency: a few times a month Alcohol type: beer Counseling given: No Drug use: Daily Substance use type: marijuana Counseling given: No Counseling provided: none Adopted: No Household members: family Housing: house Number of Children: 2 Communication Needs: None Education Level: high school Do you need help understanding health information?: Rarely 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: male What is your relationship status?: How often do you talk on the phone with friends or family?: twice per week How often do you get together with friends or relatives?: three or more times per week Panel score (0-1 are the most socially isolated patients): 2 NHANES result reviewed/action taken: No What type of physical activity do you participate in: walking Duration: 15-30 minutes/day Frequency: 3-4 times per week Seatbelt use: always Helmet use: Yes Drive intox or ride w/intox customer service driver: No Water heater temp set <120 deg: Yes Working smoke detector in home: Yes Fire extinguisher in home: Yes Carbon monox detector in home: Yes Firearms in home: No Do you feel safe at home: Yes Do you feel safe in your relationship?: Yes
== END 2024-04-27 08:01 | disposition home or self-care (01) ==
PROVIDERS: Emergency Provider Emergency Medicine; PCP Nurse Practitioner
DX: S69.91XA Unspecified injury of right wrist, hand and finger(s), initial encounter (principal); W23.1XXA Caught, crushed, jammed, or pinched between stationary objects, initial encounter
CPT/HCPCS: 99283; 73130

== ENCOUNTER 2024-05-16 20:59 | Emergency (ER) | payer MEDICAID, SELFPAY ==
[2024-05-16] VITALS (56 sets, daily range): BP systolic 110–155; BP diastolic 63–89; PULSE 87–112; RESP 10–27; TEMP 37.6; O2SAT 93–98
--- NOTE | 2024-05-16 21:00 | RT.EKG_ITS ---
APPROVED REPORT Exam: Resting ECG Reason for Exam: palpatation. Patient Location: E HR:116 bpm ECG Measurements Heart Rate 116 AXIS MO 133 P 76 QRSd 104 QRS 58 QT 329 T 77 QTc 451 Conclusion Sinus tachycardia...rate> 99 Ventricular premature complex...V complex w/ short R-R interval Normal [place] Nonspecific ST-T changes, probably rate related
--- NOTE | 2024-05-16 21:01 | W.ED.GENAD ---
Discharge Plan Disposition Patient Disposition: Home Condition: Good Discharge Details Clinical Impression: COVID-19, PVCs (premature ventricular contractions), Hypomagnesemia Primary Care Provider: Lara Sy ED Provider: Ian Pappas [place] Meds and New Rx's Prescriptions: New Paxlovid 300 mg (150 mg x 2)-100 mg tablets,dose pack See Rx Instructions .ROUTE .COMPLEX Qty: 30 0RF Rx Instructions: take TWO 150 mg tablets of nirmatrelvir with ONE 100 mg tablet of ritonavir twice daily for 5 days Continued albuterol sulfate [Ventolin HFA] 90 mcg/actuation HFA aerosol inhaler See Rx Instructions .ROUTE .COMPLEX Qty: 18 12RF Dose Instruction: INHALE TWO PUFFS BY MOUTH EVERY 4 HOURS NEEDED FOR SHORTNESS OF BREATH OR WHEEZING Rx Instructions: INHALE TWO PUFFS BY MOUTH EVERY 4 HOURS NEEDED FOR SHORTNESS OF BREATH OR WHEEZING clonazepam 0.5 mg tablet 0.5 mg PO BID PRN (Reason: anxiety) Qty: 56 5RF fenofibrate nanocrystallized 48 mg tablet 48 mg PO DAILY ergocalciferol (vitamin D2) 1,250 mcg (50,000 unit) capsule 1,250 mcg PO QWEEK Qty: 12 3RF clobetasol 0.05 % cream 1 applic topical BID PRN (Reason: as directed for dermatitis) triamcinolone acetonide 0.1 % cream 1 applic TOPICAL BID PRN Patient Comments: APPLY TOPICALLY TWO TIMES A DAY NEEDED FOR ECZEMA ON FOREARMS BILATERALLY Held atorvastatin 40 mg tablet 40 mg PO QHS Qty: 90 3RF Hold Instructions: Resume on 05/22/24. may begin taking three days after finishing Paxlovid Discharge Instructions Instructions: Ventricular premature beats, COVID-19 ED Additional Instructions: You were seen in the ED for palpitations that by EKG appear to be related to PVCs. Because of your history of asthma with increased use of rescue inhaler we will start you on Paxlovid for the COVID. You will need to hold your atorvastatin during therapy as well as 3 days after therapy. Rest, hydrate, use acetaminophen or ibuprofen for pain and fever. Follow-up with primary care next week. Return to ED for any chest pain, increasing shortness of breath, confusion, persistent vomiting, other concerns. Referrals: Lara Sy, PAPER RECLAIMING MACHINE OPERATOR [Primary Care Provider] - [facility] General Date/Time Provider Initiated Documentation: 05/16/24 21:00. Related Data Home Medications ?Medication ?Instructions ?Recorded ?Confirmed clobetasol 0.05 % topical cream 1 applic topical BID PRN as 06/03/22 05/16/24 directed for dermatitis ergocalciferol (vitamin D2) 1,250 1,250 mcg PO QWEEK #12 caps 01/05/23 05/16/24 mcg (50,000 unit) capsule albuterol sulfate 90 mcg/actuation See Rx Instructions .Route 01/25/24 05/16/24 aerosol inhaler (Ventolin HFA) .COMPLEX #18 grams atorvastatin 40 mg tablet 40 mg PO QHS #90 tabs 01/25/24 05/16/24 clonazepam 0.5 mg tablet 0.5 mg PO BID PRN anxiety #56 tabs 01/25/24 05/16/24 fenofibrate nanocrystallized 48 mg 48 mg PO DAILY 04/02/24 05/16/24 tablet nirmatrelvir 300 mg (150 mg See Rx Instructions PO .COMPLEX 05/16/24 x2)-ritonavir 100 mg tablet,dose #30 dose pk pack (Paxlovid) triamcinolone acetonide 0.1 % 1 applic topical BID PRN 05/16/24 05/16/24 topical cream Previous Rx's ?Medication ?Instructions ?Recorded ergocalciferol (vitamin D2) 1,250 1,250 mcg PO QWEEK #12 caps 01/05/23 mcg (50,000 unit) capsule albuterol sulfate 90 mcg/actuation See Rx Instructions .Route 01/25/24 aerosol inhaler (Ventolin HFA) .COMPLEX #18 grams atorvastatin 40 mg tablet 40 mg PO QHS #90 tabs 01/25/24 clonazepam 0.5 mg tablet 0.5 mg PO BID PRN anxiety #56 tabs 01/25/24 nirmatrelvir 300 mg (150 mg See Rx Instructions PO .COMPLEX 05/16/24 x2)-ritonavir 100 mg tablet,dose #30 dose pk pack (Paxlovid) Allergies Allergy/AdvReac Type Severity Reaction Status Date / Time Penicillins Allergy Severe Hives Verified 05/16/24 21:09 Sulfa (Sulfonamide Allergy Mild Hives Verified 05/16/24 21:09 Antibiotics) General OMERO: 4 Medical Decision Making Quality:SDOH Health Related Social Needs: No Data to Display PFSH All Active Problems (Updated 05/16/24 @ 23:08 by Ian Pappas MD) Hypomagnesemia (Acute) PVCs (premature ventricular contractions) (Acute) COVID-19 (Acute) History of alcohol abuse (Acute 08/12/15) Chondromalacia patellae of right knee (Acute) Tendinitis of right quadriceps tendon (Acute) Severe central sleep apnea comorbid with prescribed opioid use (Acute ~04/2022) 05/05/22 Sleep Study 08/10/22-CPAP titration Dermatitis (Acute) 06/02/22 [facility] Functional dyspepsia (Acute) From [facility] Gastro note from 04/28/21 Irritable bowel syndrome (Chronic) Per [facility] Gastro note from 04/28/21 Difficulty hearing (Acute) Depression (Chronic) Daytime somnolence (Acute) Panic anxiety syndrome (Acute) Tubular adenoma of colon (Acute ~01/2021) Social anxiety disorder (Chronic) Chronic low back pain with right-sided sciatica (Acute 08/12/15) Snoring (Acute) Vitamin D deficiency (Acute) Low HDL (under 40) (Acute) Weight gain (Acute) Fatigue (Acute) Chronic pain of left elbow (Acute 08/12/15) History of rectal bleeding (Acute 08/12/15) GARY (generalized anxiety disorder) (Chronic) Major depression (Chronic) Herniation of lumbar intervertebral disc with radiculopathy (Acute) 10/24/18 Luzma Abdu- recommends transforaminal injection right L4-L5 Nasal septal deviation (Chronic) Hypertrophy of nasal turbinates (Chronic) Nasal obstruction (Chronic) Snoring (Chronic) High triglycerides (Chronic) Dislocation of temporomandibular joint (Acute 08/19/16) Medical History (Updated 05/16/24 @ 23:08 by Ian Pappas MD) Anxiety Mild intermittent asthma without complication (08/12/15) Hyperlipidemia, unspecified (09/03/15) Surgical History H/O esophagogastroduodenoscopy (~01/05/21) S/P colonoscopy (~01/05/21) 2016 H/O rhinoplasty Fx left forearm, staph, grafting (~2007) Family History Mother Essential hypertension Hyperlipidemia COPD (chronic obstructive pulmonary disease) Depression Father Diabetes Essential hypertension Heart disease Hyperlipidemia Alcohol abuse former Grandfather Heart disease [place] in 70's Grandfather Personal history of malignant neoplasm Heart disease Social History Smoking/Tobacco Use Status: Former Tobacco Use Quit Date: 07/08/17 Smoking risk assessment performed?: Yes Alcohol Intake: former Counseling given: No Drug use: Occasionally Substance use type: marijuana Counseling given: No Counseling provided: none Adopted: No Household members: family Housing: house Number of Children: 2 Communication Needs: None Education Level: high school Do you need help understanding health information?: Rarely 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: male What is your relationship status?: How often do you talk on the phone with friends or family?: twice per week How often do you get together with friends or relatives?: three or more times per week Panel score (0-1 are the most socially isolated patients): 2 NHANES result reviewed/action taken: No What type of physical activity do you participate in: walking Duration: 15-30 minutes/day Frequency: 3-4 times per week Seatbelt use: always Helmet use: Yes Drive intox or ride w/intox lifter/driver: No Water heater temp set <120 deg: Yes Working smoke detector in home: Yes Fire extinguisher in home: Yes Carbon monox detector in home: Yes Firearms in home: No Do you feel safe at home: Yes Do you feel safe in your relationship?: Yes
[2024-05-16 21:35] LABS: Abs Immature Grans 0.03 10^3/uL (0.0-0.06); Absolute Basophil Count 0.06 10^3/uL (0.0-0.2); Absolute Eosinophil Count 0.02 10^3/uL (0.0-0.7); Absolute Neutrophil Count 7.34 10^3/uL (1.2-6.7); Basophils % 0.6 %; Eosinophils % 0.2 %; HCT 40.5 % (40.0-50.0); HGB 14.1 g/dL (13.5-17.5); Immature Grans % 0.3 %; Lymphocytes % 10.5 %; MCH 30.6 pg (27.0-33.0); MCHC 34.8 % (32.0-36.0); MCV 88 fL (80-95); MPV 10.1 fL (8.0-11.0); Monocytes % 11.5 %; Neutrophils % 76.9 %; Platelet Count 218 10^3/uL (130-400); RBC 4.61 10^6/uL (4.36-5.78); RDW 11.5 % (11.8-14.1); WBC 9.55 10^3/uL (4.4-10.8)
[2024-05-16] MEDS: Lactated Ringers 1,000 ML 1000 ML IV (21:36)
[2024-05-16 21:51] LABS: ALT 58 U/L (16-63); AST 32 U/L (15-37); Albumin 4.6 g/dL (3.4-5.0); Alkaline Phosphatase 71 U/L (46-116); BUN 17 mg/dL (7-18); Bilirubin, Total 0.77 mg/dL (0.2-1.0); CREATININE 1.7 mg/dL (0.70-1.30); Calcium 9.6 mg/dL (8.5-10.1); Chloride 101 mmol/L (98-107); Estimated GFR 50.35 (mL/min/1.73m2); Glucose 181 mg/dL (74-106); Magnesium 1.6 mg/dL (1.8-2.4); Potassium 3.3 mmol/L (3.5-5.1); Sodium 137 mmol/L (136-145); Total Protein 8.4 g/dL (6.4-8.2)
[2024-05-16] MEDS: MAGNESIUM SULFATE 2 GM/50 ML BAG IVINF (22:08)
[2024-05-16] MEDS: Potassium Chloride 20 MEQ TABCR 40 MEQ PO (22:21)
== END 2024-05-16 23:52 | disposition home or self-care (01) ==
PROVIDERS: Emergency Provider Emergency Medicine; PCP Nurse Practitioner
DX: U07.1 COVID-19 (principal); I49.3 Ventricular premature depolarization; E83.42 Hypomagnesemia; E87.6 Hypokalemia; E78.5 Hyperlipidemia, unspecified
CPT/HCPCS: 36415; 80053; 93005; 96365; 96367; 99284; 83735; 85025; 93010; J3475

== ENCOUNTER 2024-06-08 03:14 | Outpatient (CLI) | payer MEDICAID, SELFPAY ==
--- NOTE | 2024-06-11 13:19 | W.NUTRFU ---
Date of service: 06/08/24 Time of Service: 11:30 Nutrition Note NOTE: Sonny is 43yo who was referred to nutrition visit for concerns of hepatosteatosis. His PMH also includes high TGL's, low HDL, Hx of vitamin D deficiency, IBS, with states familial history of diabetes. Pt currently taking atorvastatin, and fenofibrate. Sonny was helpful and brought in 4 days of diet recall. Assessed trends with diet recall: Typically eats 1 meal per day with maybe a snack or two. Eating fish routinely lately in the form of salmon or mackerel, and has large portion of veggies like broccoli/[place] sprouts. Not too many grain choices but tend to be refined variety (pizza curst, soft taco shells, muffins, pretzels. Sonny states he tries to be active with walks but does not engage in scheduled exercise. Stays busy at home with his two dtrs. Reviewed recommended macros for with Sonny as ~2000kcals for slow weight loss, 150g protein, 200g total carbs, and 67g fat. We looked at how it is it difficult for him to meet protein needs just eating one main source of protein per day in his dinner meal (assess total protein intake probably comes out to half of recommendation many days). We reviewed how this can effect his muscle mass and glucose control. Also with fewer meal opportunities has more risk of falling short in micronutrients and fiber. We reviewed carbs and that out of his total carb recommendation, hitting at least 30g fiber is important, as well as getting <30g from added sugar category and suggested these as main items to track occasionally to where he compares on average. We reveiwed meal planning with suggestion for at least 3 meals and limit snacks to 0-2 planned snacks per day with emphasis on protein and non-starchy veggie included in snacks. We discussed setting up a repeatable cycle menu with limited options that focus on limiting added sugar, and meeting fiber and protein goals within his kcal limit. I encouraged focusing on meals and snacks he is independent with and letting a few inconsistent dinners fall where they will from time to time due to special occasions/holidays/busy family schedule. As Sonny does not take nutrition supplements currently, I suggested considering the following to help meet his goals: -take 2,000IU D3 January -June and 4,000IU June through january. -consider garlic (gave suggestion of 1 clover per day of minced garlic swallowed with water at meal. -consider milk thistle (silymarin) at 400-600mg per day in conjunction with fenofibrate -consider standard multivitamin. -continue eating fatty fish at least 2-3 times per week or consider fish oil supplement (triglyceride form) *highlighted keeping refined carbs, added sugar down and modest weight loss with new focus on an exercise habit. Also gave Sonny a CGM for glucose monitoring for 2 week period to see if any troubling patterns and gave him my card to contact if any questions, need for follow up, or would like to run his menus by me for comment. Time Spent in Nutritional Counseling and Treatment: 40 min
== END 2024-06-08 03:15 | disposition home or self-care (01) ==
LOC: DS 03:15
PROVIDERS: PCP Nurse Practitioner; Visit Provider Dietitian, Registered
DX: K76.0 Fatty (change of) liver, not elsewhere classified (principal)
CPT/HCPCS: 00123; 97802

== ENCOUNTER 2024-07-05 08:18 | Outpatient (CLI) | payer MEDICAID, SELFPAY ==
[2024-07-05 07:59] LABS: Hemoglobin A1C 5.4 % (<5.7)
[2024-07-05 08:05] LABS: HDL Cholesterol 41 mg/dL (40-60); LDL CHOLESTEROL 77 mg/dL (<100)
[2024-07-05 20:03] LABS: CRP, High Sensitivity 0.62 mg/L (See Note)
[2024-07-07 13:51] LABS: Apolipoprotein B, S 86 mg/dL; Lipoprotein (a) 43 nmol/L (<75)
== END 2024-07-05 08:19 | disposition home or self-care (01) ==
LOC: LBO 08:19
PROVIDERS: PCP Nurse Practitioner; Visit Provider Internal Medicine Cardiovascular Disease
DX: E78.2 Mixed hyperlipidemia (principal)
CPT/HCPCS: 36415; 82172; 83695; 83721; 86141; 83036; 83718; 84443

== ENCOUNTER 2024-08-13 16:24 | Outpatient (REF) | payer MEDICAID, SELFPAY ==
[2024-08-14 12:27] LABS: Campylobacter PCR Negative (Negative); Salmonella PCR Negative (Negative); Shiga Toxin PCR Negative (Negative); Shigella/Enteroinvasive Ecoli Negative (Negative)
[2024-08-16 19:26] LABS: Pancreatic Elastase, F >500 mcg/g
== END 2024-08-13 16:25 | disposition home or self-care (01) ==
LOC: LBN 16:24
PROVIDERS: PCP Nurse Practitioner; Visit Provider Internal Medicine Gastroenterology
DX: K58.2 Mixed irritable bowel syndrome (principal)
CPT/HCPCS: 87493; 87505; 82656

== ENCOUNTER 2024-10-29 03:05 | Outpatient (CLI) | payer MEDICAID, SELFPAY ==
[2024-10-29 11:51] LABS: Hemoglobin A1C 5.1 % (<5.7)
[2024-10-29 12:04] LABS: ALT 32 U/L (16-63); AST 18 U/L (15-37); Albumin 4.4 g/dL (3.4-5.0); Alkaline Phosphatase 59 U/L (46-116); Anion Gap 7.8 mmol/L (3-11); BUN 13 mg/dL (7-18); CO2 28.2 mmol/L (21.0-32.0); CREATININE 1.1 mg/dL (0.70-1.30); Calcium 9.6 mg/dL (8.5-10.1); Calculated LDL 29 mg/dL (<100); Chloride 108 mmol/L (98-107); Cholesterol 83 mg/dL (<200); Estimated GFR 84.37 (mL/min/1.73m2); Glucose 93 mg/dL (74-106); HDL Cholesterol 42 mg/dL (40-60); Potassium 4.2 mmol/L (3.5-5.1); Sodium 144 mmol/L (136-145); Total Protein 7.7 g/dL (6.4-8.2); Triglyceride 61 mg/dL (<150)
[2024-10-29 12:57] LABS: Vitamin D 25 Total 23.6 ng/mL (30-100)
== END 2024-10-29 03:06 | disposition home or self-care (01) ==
PROVIDERS: PCP Nurse Practitioner; Visit Provider Nurse Practitioner Adult Health
DX: E55.9 Vitamin D deficiency, unspecified (principal)
CPT/HCPCS: 36415; 80053; 80061; 82306; 83036

== ENCOUNTER 2024-12-28 07:05 | Emergency (ER) | payer MEDICAID, SELFPAY ==
[2024-12-28 07:10] VITALS: BP 111/68; PULSE 85; RESP 16; TEMP 36; O2SAT 97
--- NOTE | 2024-12-28 07:51 | DI.RAD_ITS ---
Exam(s) XR RIBS ONLY LT EXAM: XR RIBS ONLY LT CLINICAL HISTORY: rib pain TECHNIQUE: 2D digital imaging was performed. COMPARISON: No exams were available for comparison FINDINGS: RIBS 4 VIEWS-LEFT There are no obvious acute rib fractures evident. No lytic rib lesions identified. IMPRESSION: 1. No obvious rib fractures evident. Also no significant rib lesions. 2. No ipsilateral lung nor pleural abnormality evident. No pneumothorax. DATA REPOSITORY: RADIATION DOSE DELIVERED:
[2024-12-28] MEDS: Acetaminophen 500 MG TAB 1000 MG PO (08:00)
[2024-12-28] MEDS: Methocarbamol 500 MG TAB 1000 MG PO (08:00)
[2024-12-28] MEDS: Lidocaine 5% Patch 1 PATCH TP (08:26)
--- NOTE | 2024-12-28 08:45 | ED.GENADUL_ITS ---
Discharge Plan Disposition Patient Disposition: Home Discharge Details Clinical Impression: Rib pain on left side, Contusion of rib on left side Primary Care Provider: Lara Sy ED Provider: Funmi Moise Home Meds and New Rx's Prescriptions: New lidocaine [Lidoderm] 5 % adhesive patch,medicated 1 patch topical DAILY Qty: 15 0RF Rx Instructions: leave on most painful area for up to 12 hrs methocarbamol 1,000 mg tablet 1,000 mg PO TID 5 Days Qty: 15 0RF No Action atorvastatin 40 mg tablet 40 mg PO QHS Qty: 90 3RF clonazepam 0.5 mg tablet 0.5 mg PO BID PRN (Reason: anxiety) Qty: 56 5RF fenofibrate nanocrystallized 48 mg tablet 48 mg PO DAILY Qty: 90 3RF triamcinolone acetonide 0.1 % cream 1 applic TOPICAL BID PRN (Reason: arm dermatitis bilateral) Qty: 80 6RF albuterol sulfate [Ventolin HFA] 90 mcg/actuation HFA aerosol inhaler See Rx Instructions .ROUTE .COMPLEX Qty: 18 1RF Dose Instruction: INHALE TWO PUFFS BY MOUTH EVERY 4 HOURS NEEDED FOR SHORTNESS OF BREATH OR WHEEZING Rx Instructions: INHALE TWO PUFFS BY MOUTH EVERY 4 HOURS NEEDED FOR SHORTNESS OF BREATH OR WHEEZING Discharge Instructions Instructions: Rib Fracture or Bruised Rib ED Additional Instructions: no fracture on xray take medications as prescribed in addition to tylenol to help with discomfort HPI General Date/Time Provider Initiated Documentation: 12/28/24 07:28 . Limitations to Documentation: no limitations . Information obtained by: patient . HPI Narrative: 44-year-old gentleman with past medical history including alcohol abuse, IBS presents for evaluation of left-sided rib pain. He reports that last night while playing baseball he was elbowed in the ribs. He states that he did hear a crack. He reports significant pain throughout the night and says that he could not get comfortable or sleep. He did not take any medications to attempt relie f. Pain worse with movement and breathing. Denies any difficulty breathing or shortness of breath. Related Data Home Medications ?Medication ?Instructions ?Recorded ?Confirmed atorvastatin 40 mg tablet 40 mg PO QHS #90 tabs 01/25/24 12/28/24 clonazepam 0.5 mg tablet 0.5 mg PO BID PRN anxiety #56 tabs 07/18/24 12/28/24 fenofibrate nanocrystallized 48 mg 48 mg PO DAILY #90 tabs 07/18/24 12/28/24 tablet triamcinolone acetonide 0.1 % 1 applic topical BID PRN arm 07/18/24 12/28/24 topical cream dermatitis bilateral #80 grams albuterol sulfate 90 mcg/actuation See Rx Instructions .Route 11/30/24 12/28/24 aerosol inhaler (Ventolin HFA) .COMPLEX #18 grams lidocaine 5 % topical patch 1 patch topical DAILY #15 ea 12/28/24 (Lidoderm) methocarbamol 1,000 mg tablet 1,000 mg PO TID 5 days #15 tabs 12/28/24 Previous Rx's ?Medication ?Instructions ?Recorded atorvastatin 40 mg tablet 40 mg PO QHS #90 tabs 01/25/24 clonazepam 0.5 mg tablet 0.5 mg PO BID PRN anxiety #56 tabs 07/18/24 fenofibrate nanocrystallized 48 mg 48 mg PO DAILY #90 tabs 07/18/24 tablet triamcinolone acetonide 0.1 % 1 applic topical BID PRN arm 07/18/24 topical cream dermatitis bilateral #80 grams albuterol sulfate 90 mcg/actuation See Rx Instructions .Route 11/30/24 aerosol inhaler (Ventolin HFA) .COMPLEX #18 grams lidocaine 5 % topical patch 1 patch topical DAILY #15 ea 12/28/24 (Lidoderm) methocarbamol 1,000 mg tablet 1,000 mg PO TID 5 days #15 tabs 12/28/24 Allergies Allergy/AdvReac Type Severity Reaction Status Date / Time Penicillins Allergy Severe Hives Verified 12/28/24 07:12 Sulfa (Sulfonamide Allergy Mild Hives Verified 12/28/24 07:12 Antibiotics) General Stated Complaint: Orthopedic OMERO: 4 Exam Narrative Exam Narrative: Review of Systems: All systems reviewed & are unremarkable except as noted in HPI and below Well-developed, appears uncomfortable NCAT RRR, no murmur Unlabored respiratory effort, Clear bilaterally Tenderness along the left anterior lower ribs, no deformity, no flail chest, no overlying bruising Course Vital Signs Vital signs: Vital Signs Temperature 36.0 C L 12/28/24 07:10 Pulse 85 12/28/24 07:10 Respiratory Rate 16 12/28/24 07:10 Blood Pressure 111/68 12/28/24 07:10 Pulse Oximetry 97 12/28/24 07:10 Temperature 36.0 C L 12/28/24 07:10 Temperature Source Tympanic 12/28/24 07:10 Pulse 85 12/28/24 07:10 Respiratory Rate 16 12/28/24 07:10 Blood Pressure 111/68 12/28/24 07:10 Pulse Oximetry 97 12/28/24 07:10 Pain Level 6 12/28/24 08:00 Medical Decision Making Emergent evaluation of left-sided rib pain. Patient sustained low mechanism trauma last night. No evidence of hypoxia or shortness of breath to indicate a pneumothorax, no obvious trauma or flail chest noted on examination. X-ray obtained and there is no definitive rib fracture noted. Recommend medications for pain control including Lidoderm patch, Tylenol and Robaxin. Prescription sent to the pharmacy. Follow-up with PCP as needed for any ongoing pain control needs. Quality:SDOH Health Related Social Needs: No Data to Display REPLACED BY [facility] All Active Problems (Updated 12/28/24 @ 08:21 by Funmi Moise MD) Contusion of rib on left side (Acute) Rib pain on left side (Acute) Internal hemorrhoids (Acute ~2023) Diverticulosis of sigmoid colon (Acute ~08/2024) Metabolic dysfunction-associated steatotic liver disease (MASLD) (Acute ~07/2024) 08/08/24 Fibroscan at Mixed hyperlipidemia (Acute ~06/2024) 07/03/24 Cardiology Incontinence of feces (Acute ~05/2024) 05/21/24 GI - Motility lab Steatosis of liver (Acute) Hand pain, right (Acute) COVID-19 (Acute) History of alcohol abuse (Acute 08/12/15) Chondromalacia patellae of right knee (Acute) Tendinitis of right quadriceps tendon (Acute) Severe central sleep apnea comorbid with prescribed opioid use (Acute ~04/2022) 05/05/22 Sleep Study 08/10/22-CPAP titration Dermatitis (Acute) 06/02/22 Derm Functional dyspepsia (Acute) From [facility] [place] Gastro note from 04/28/21 Irritable bowel syndrome (Chronic) Per [facility] [place] Gastro note from 04/28/21 Difficulty hearing (Acute) Depression (Chronic) Daytime somnolence (Acute) Panic anxiety syndrome (Acute) Tubular adenoma of colon (Acute ~01/2021) Social anxiety disorder (Chronic) Chronic low back pain with right-sided sciatica (Acute 08/12/15) Snoring (Acute) Vitamin D deficiency (Acute) Low HDL (under 40) (Acute) Weight gain (Acute) Fatigue (Acute) Chronic pain of left elbow (Acute 08/12/15) History of rectal bleeding (Acute 08/12/15) GARY (generalized anxiety disorder) (Chronic) Major depression (Chronic) Herniation of lumbar intervertebral disc with radiculopathy (Acute) 10/24/18 Luzma Schwartzu- recommends transforaminal injection right L4-L5 Nasal septal deviation (Chronic) Hypertrophy of nasal turbinates (Chronic) Nasal obstruction (Chronic) Snoring (Chronic) High triglycerides (Chronic) Dislocation of temporomandibular joint (Acute 08/19/16) Medical History (Updated 12/28/24 @ 08:21 by Funmi Moise MD) Family history of abdominal aortic aneurysm (~06/2024) 07/03/24 [facility] Pain in right finger(s) (~06/2024) 07/19/24 Dr Marta Esposito Mild intermittent asthma without complication (08/12/15) Hyperlipidemia, unspecified (09/03/15) Surgical History (Updated 08/31/24 @ 16:09 by Flores Mccartney RN) H/O esophagogastroduodenoscopy (~01/05/21) S/P colonoscopy (~01/05/21) [id number] hemorrhoids, diverticulosis H/O rhinoplasty Fx left forearm, staph, grafting (~2007) Family History Mother Essential hypertension Hyperlipidemia COPD (chronic obstructive pulmonary disease) Depression Father Diabetes Essential hypertension Heart disease Hyperlipidemia Alcohol abuse former Grandfather Heart disease [place] in 70's Grandfather Personal history of malignant neoplasm Heart disease Social History Smoking/Tobacco Use Status: Former Tobacco Use Quit Date: 07/08/17 Smoking risk assessment performed?: Yes Alcohol Intake: former Counseling given: No Drug use: Occasionally Substance use type: marijuana Counseling given: No Counseling provided: none Adopted: No Household members: family Housing: house Number of Children: 2 Communication Needs: None Education Level: high school Do you need help understanding health information?: Rarely 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: male What is your relationship status?: How often do you talk on the phone with friends or family?: twice per week How often do you get together with friends or relatives?: three or more times per week Panel score (0-1 are the most socially isolated patients): 2 NHANES result reviewed/action taken: No What type of physical activity do you participate in: walking Duration: 15-30 minutes/day Frequency: 3-4 times per week Seatbelt use: always Helmet use: Yes Drive intox or ride w/intox emergency medical technician/driver: No Water heater temp set <120 deg: Yes Working smoke detector in home: Yes Fire extinguisher in home: Yes Carbon monox detector in home: Yes Firearms in home: No Do you feel safe at home: Yes Do you feel safe in your relationship?: Yes
== END 2024-12-28 08:40 | disposition home or self-care (01) ==
PROVIDERS: Emergency Provider Emergency Medicine; PCP Nurse Practitioner
DX: R07.81 Pleurodynia (principal); S30.1XXA Contusion of abdominal wall, initial encounter; W51.XXXA Accidental striking against or bumped into by another person, initial encounter
CPT/HCPCS: 99283 ×2; 71100

== ENCOUNTER 2024-12-31 01:54 | Emergency (ER) | payer MEDICAID, SELFPAY ==
[2024-12-31 01:58] VITALS: BP 153/83; PULSE 97; RESP 20; TEMP 36.3; O2SAT 98
--- NOTE | 2024-12-31 02:21 | ED.GENADUL_ITS ---
Discharge Plan Disposition Patient Disposition: Home Condition: Good Discharge Details Chief Complaint: Orthopedic Clinical Impression: Rib pain on left side Primary Care Provider: Lara Sy ED Provider: Darrell Sanchez Home Meds and New Rx's Prescriptions: No Action atorvastatin 40 mg tablet 40 mg PO QHS Qty: 90 3RF clonazepam 0.5 mg tablet 0.5 mg PO BID PRN (Reason: anxiety) Qty: 56 5RF fenofibrate nanocrystallized 48 mg tablet 48 mg PO DAILY Qty: 90 3RF triamcinolone acetonide 0.1 % cream 1 applic TOPICAL BID PRN (Reason: arm dermatitis bilateral) Qty: 80 6RF albuterol sulfate [Ventolin HFA] 90 mcg/actuation HFA aerosol inhaler See Rx Instructions .ROUTE .COMPLEX Qty: 18 1RF Dose Instruction: INHALE TWO PUFFS BY MOUTH EVERY 4 HOURS NEEDED FOR SHORTNESS OF BREATH OR WHEEZING Rx Instructions: INHALE TWO PUFFS BY MOUTH EVERY 4 HOURS NEEDED FOR SHORTNESS OF BREATH OR WHEEZING lidocaine [Lidoderm] 5 % adhesive patch,medicated 1 patch topical DAILY Qty: 15 0RF Rx Instructions: leave on most painful area for up to 12 hrs methocarbamol 1,000 mg tablet 1,000 mg PO TID 5 Days Qty: 15 0RF Discharge Instructions Instructions: Rib Fracture or Bruised Rib ED Additional Instructions: At this time there is no evidence of popped lung, rib fracture or other significant abnormality. As we discussed together I do suspect that there is either a small crack in the rib that we cannot visualize on this imaging or potential muscle strain of the intercostal muscles. Please use the binding Julio C wrap to help with the pain. Please ice the area frequently. Take Tylenol and Motrin as needed. If you notice any worsening of your symptoms, or any new symptoms such as vomiting, diarrhea, fever, chills, shortness of breath, chest pain, numbness, weakness, or fainting , please return immediately to the emergency department for reevaluation. Please follow up with your primary care provider as soon as possible for reassessment and reevaluation. As always, it was a pleasure participating in your medical care today. Referrals: Lara Sy NP [Primary Care Provider] - HPI General Date/Time Provider Initiated Documentation: 12/31/24 01:56 . HPI Narrative: 44-year-old male with a past medical history of high cholesterol, hepatic steatosis, irritable bowel syndrome, anxiety, who presents today for left rib pain. Patient was here 4 days ago, a day prior to that visit he had been rib in the left ribs during a sports game. He states that he was a relatively mild contact, but still cause some mild irritation in the left ribs. There were extended and she came to the ER for further evaluation. X-ray shows no evidence of pneumothorax or rib fracture. He was discharged home with prescription for NSAIDs and Lidoderm patch. Patient had been bracing his left chest with an Julio C wrap which had been helping. The Lidoderm patches caused a mild rash. Pain has continued and is worse with breathing. He denies numbness or tingling. It is worse with movement and palpation of the left anterior lateral ribs. He denies any hemoptysis fever or chills. He would like further evaluation for differentiation for the pain cause. Related Data Home Medications ?Medication ?Instructions ?Recorded ?Confirmed atorvastatin 40 mg tablet 40 mg PO QHS #90 tabs 01/25/24 12/31/24 clonazepam 0.5 mg tablet 0.5 mg PO BID PRN anxiety #56 tabs 07/18/24 12/31/24 fenofibrate nanocrystallized 48 mg 48 mg PO DAILY #90 tabs 07/18/24 12/31/24 tablet triamcinolone acetonide 0.1 % 1 applic topical BID PRN arm 07/18/24 12/31/24 topical cream dermatitis bilateral #80 grams albuterol sulfate 90 mcg/actuation See Rx Instructions .Route 11/30/24 12/31/24 aerosol inhaler (Ventolin HFA) .COMPLEX #18 grams lidocaine 5 % topical patch 1 patch topical DAILY #15 ea 12/28/24 12/31/24 (Lidoderm) methocarbamol 1,000 mg tablet 1,000 mg PO TID 5 days #15 tabs 12/28/24 12/31/24 Previous Rx's ?Medication ?Instructions ?Recorded atorvastatin 40 mg tablet 40 mg PO QHS #90 tabs 01/25/24 clonazepam 0.5 mg tablet 0.5 mg PO BID PRN anxiety #56 tabs 07/18/24 fenofibrate nanocrystallized 48 mg 48 mg PO DAILY #90 tabs 07/18/24 tablet triamcinolone acetonide 0.1 % 1 applic topical BID PRN arm 07/18/24 topical cream dermatitis bilateral #80 grams albuterol sulfate 90 mcg/actuation See Rx Instructions .Route 11/30/24 aerosol inhaler (Ventolin HFA) .COMPLEX #18 grams lidocaine 5 % topical patch 1 patch topical DAILY #15 ea 12/28/24 (Lidoderm) methocarbamol 1,000 mg tablet 1,000 mg PO TID 5 days #15 tabs 12/28/24 Allergies Allergy/AdvReac Type Severity Reaction Status Date / Time Penicillins Allergy Severe Hives Verified 12/31/24 02:02 Sulfa (Sulfonamide Allergy Mild Hives Verified 12/31/24 02:02 Antibiotics) General Stated Complaint: Orthopedic OMERO: 4 Exam Narrative Exam Narrative: 1.Const: Well-nourished, Well-developed, appearing stated age 2.Eyes: PERRL, no conjunctival injection, and symmetrical lids. 3.ENT: Atraumatic external nose and ears. Moist MM. Neck: Symmetric, trachea midline, No thyromegaly. 4.CVS: +S1/S2, Peripheral pulses 2+ and equal in all extremities. Brisk capillary refill in all extremities. 5.RESP: Unlabored respiratory effort. Clear to auscultation bilaterally. No wheezes rales or rhonchi 6.GI: Soft, Nontender/Nondistended, No hepatosplenomegaly. No guarding or rebound. 7.MSK: Normocephalic/Atraumatic, mild tenderness on palpation of the left anterior lateral ribs. No subcutaneous crepitus. 8.Skin: Warm, Dry. There is a mild rash on the anterior wall of the chest with Lidoderm patch has been. No vesicles or bulla. 9.Neuro: cleaner assistant II-XII grossly intact. Sensation grossly intact, no focal neurologic deficits. 10.Psych: (AAO) x3. Appropriate mood and affect Course Vital Signs Vital signs: Vital Signs Temperature 36.3 C L 12/31/24 01:58 Pulse 97 H 12/31/24 01:58 Respiratory Rate 20 12/31/24 01:58 Blood Pressure 153/83 H 12/31/24 01:58 Pulse Oximetry 98 12/31/24 01:58 Temperature 36.3 C L 12/31/24 01:58 Temperature Source Tympanic 12/31/24 01:58 Pulse 97 H 12/31/24 01:58 Respiratory Rate 20 12/31/24 01:58 Blood Pressure 153/83 H 12/31/24 01:58 Blood Pressure Position Sitting 12/31/24 01:58 Pulse Oximetry 98 12/31/24 01:58 Oxygen Delivery Method Room Air 12/31/24 01:58 Oxygen Flow Rate 0 12/31/24 01:58 Pain Level 10 12/31/24 02:00 Procedure Nerve Block 1st Nerve Block: Date of Procedure: 12/31/24 Time of procedure: 03:14 Provider that performed the procedure: Darrell Sanchez Indication: Local pain control Standard Time Out Performed: Yes Patient Consented: Verbally Local Anesthetic: Bupivicaine 0.25% Amount of anethetic used(mL): 10 Sterility: Sterile Laterality: Left Nerve Blocks: other (Local block at the area of pain along the border of the left lateral ribs. Stayed notably superficial in the skin, did not go down to the nerve or the rib. No deep penetration with the needle whatsoever.). Procedure Tolerated: No Complications Procedure Outcome: Successful Medical Decision Making 44-year-old male with a past medical history of high cholesterol, hepatic steatosis, irritable bowel syndrome, anxiety, who presents today for left rib pain. Patient was here 4 days ago, a day prior to that visit he had been rib in the left ribs during a sports game. He states that he was a relatively mild contact, but still cause some mild irritation in the left ribs. There were extended and she came to the ER for further evaluation. X-ray shows no evidence of pneumothorax or rib fracture. He was discharged home with prescription for NSAIDs and Lidoderm patch. Patient had been bracing his left chest with an Julio C wrap which had been helping. The Lidoderm patches caused a mild rash. Pain has continued and is worse with breathing. He denies numbness or tingling. It is worse with movement and palpation of the left anterior lateral ribs. He denies any hemoptysis fever or chills. He would like further evaluation for differentiation for the pain cause. Exam demonstrates tenderness over the left anterior lateral aspect of the ribs around ribs 8 9 and 10. Concern for subacute fracture. Discussed with the patient that positive radiographic findings of a rib fracture would not change treatment at this time, however the patient would still like further diagnostic evaluation. Will get CT imaging, we will monitor closely and reassess. 3:[address] scan negative for acute process. No evidence of fracture. There is a superior endplate compression deformity at T4, but no acute component. No evidence of acute rib fracture. Suspect that there is a small crack that cannot be visualized versus an intercostal muscle strain secondary to the nature of the patient's symptoms, the reproducibility, and lack of other concerning abnormalities. Did offer local block, and the patient consented. Local block was performed, he tolerated this well with mild improvement. Recommend continued supportive therapy at home. Discussed red flags for which to return.. I have extensively reviewed the treatment plan and discharge instructions with the patient and their family. I have addressed all patient concerns at this time. The patient and family was made aware of what symptoms to monitor for that would warrant a return to the emergency department. Discussed the plan with the patient and family, they demonstrate verbal understanding and agreement with our assessment and plan at this time. The documentation in this chart was dictated using [employer] dictation software. Please excuse any dictation errors. FINDINGS: Thyroid: Normal-sized thyroid gland. Lungs: Platelike atelectasis on the right. No pulmonary consolidation. Pleural spaces: Trace pleural fluid on the right. No left-sided pleural effusion. No pneumothorax. Heart: Normal-sized heart. Lymph nodes: No pathologically enlarged mediastinal or hilar lymph nodes. No pathologically enlarged mediastinal or hilar lymph nodes. Vasculature: No thoracic aortic aneurysm. Kidneys: Kidneys only partially included in the field of view. 9 mm right renal cyst, image 176 of series 2. Bones/joints: No acute fracture seen among the bones of the chest. Lower posterior ribs partially excluded from view and incompletely evaluated. Superior endplate compression deformity at T4 with mild loss of central vertebral height and a Schmorl's node extending through the superior endplate, uncertain chronicity but suspected to be old. Small anterior osteophytes at several upper thoracic vertebral levels. Soft tissues: No gross soft tissue mass or fluid collection seen in the chest wall. IMPRESSION: No active disease is seen in the chest. Thank you for allowing us to participate in the care of your patient. Dictated and Authenticated by: Conor Sheets MD 12/31/2024 2:48 AM Eastern Time ([place] & [place]) Quality:SDOH Health Related Social Needs: No Data to Display PFSH All Active Problems (Updated 12/31/24 @ 03:17 by Darrell Sanchez DO) Rib pain on left side (Acute) Contusion of rib on left side (Acute) Rib pain on left side (Acute) Internal hemorrhoids (Acute ~2023) Diverticulosis of sigmoid colon (Acute ~08/2024) Metabolic dysfunction-associated steatotic liver disease (MASLD) (Acute ~07/2024) 08/08/24 Fibroscan at Mixed hyperlipidemia (Acute ~06/2024) 07/03/24 Cardiology Incontinence of feces (Acute ~05/2024) 05/21/24 GI - Motility lab Steatosis of liver (Acute) Hand pain, right (Acute) COVID-19 (Acute) History of alcohol abuse (Acute 08/12/15) Chondromalacia patellae of right knee (Acute) Tendinitis of right quadriceps tendon (Acute) Severe central sleep apnea comorbid with prescribed opioid use (Acute ~04/2022) 05/05/22 Sleep Study 08/10/22-CPAP titration Dermatitis (Acute) 06/02/22 [facility] Functional dyspepsia (Acute) From [facility] [place] 04/28/21 Irritable bowel syndrome (Chronic) Per [facility] [place]astro note from 04/28/21 Difficulty hearing (Acute) Depression (Chronic) Daytime somnolence (Acute) Panic anxiety syndrome (Acute) Tubular adenoma of colon (Acute ~01/2021) Social anxiety disorder (Chronic) Chronic low back pain with right-sided sciatica (Acute 08/12/15) Snoring (Acute) Vitamin D deficiency (Acute) Low HDL (under 40) (Acute) Weight gain (Acute) Fatigue (Acute) Chronic pain of left elbow (Acute 08/12/15) History of rectal bleeding (Acute 08/12/15) GARY (generalized anxiety disorder) (Chronic) Major depression (Chronic) Herniation of lumbar intervertebral disc with radiculopathy (Acute) 10/24/18 Luzma Schwartzu- recommends transforaminal injection right L4-L5 Nasal septal deviation (Chronic) Hypertrophy of nasal turbinates (Chronic) Nasal obstruction (Chronic) Snoring (Chronic) High triglycerides (Chronic) Dislocation of temporomandibular joint (Acute 08/19/16) Medical History (Updated 12/31/24 @ 03:17 by Darrell Sanchez DO) Family history of abdominal aortic aneurysm (~06/2024) 07/03/24 Cardiology Pain in right finger(s) (~06/2024) 07/19/24 Dr Lozano Anxiety Mild intermittent asthma without complication (08/12/15) Hyperlipidemia, unspecified (09/03/15) Surgical History (Updated 08/31/24 @ 16:09 by Flores Mccartney RN) H/O esophagogastroduodenoscopy (~01/05/21) S/P colonoscopy (~01/05/21) 2016 [id number] hemorrhoids, diverticulosis H/O rhinoplasty Fx left forearm, staph, grafting (~2007) Family History Mother Essential hypertension Hyperlipidemia COPD (chronic obstructive pulmonary disease) Depression Father Diabetes Essential hypertension Heart disease Hyperlipidemia Alcohol abuse former Grandfather Heart disease [place] in 70's Grandfather Personal history of malignant neoplasm Heart disease Social History Smoking/Tobacco Use Status: Former Tobacco Use Quit Date: 07/08/17 Smoking risk assessment performed?: Yes Alcohol Intake: former Counseling given: No Drug use: Occasionally Substance use type: marijuana Counseling given: No Counseling provided: none Adopted: No Household members: family Housing: house Number of Children: 2 Communication Needs: None Education Level: high school Do you need help understanding health information?: Rarely 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: male What is your relationship status?: How often do you talk on the phone with friends or family?: twice per week How often do you get together with friends or relatives?: three or more times per week Panel score (0-1 are the most socially isolated patients): 2 NHANES result reviewed/action taken: No What type of physical activity do you participate in: walking Duration: 15-30 minutes/day Frequency: 3-4 times per week Seatbelt use: always Helmet use: Yes Drive intox or ride w/intox cdl driver: No Water heater temp set <120 deg: Yes Working smoke detector in home: Yes Fire extinguisher in home: Yes Carbon monox detector in home: Yes Firearms in home: No Do you feel safe at home: Yes Do you feel safe in your relationship?: Yes
--- NOTE | 2024-12-31 02:34 | DI.CT_ITS ---
Exam(s) CT CHEST WO EXAM: CT CHEST WO CLINICAL HISTORY: left lower anterior rib pain. Eval for Fx TECHNIQUE: Imaging Protocol: Axial computed tomography images with coronal and sagittal reformatted images were created and reviewed. Computer aided detection (CAD) was utilized. CONTRAST MATERIAL: Intravenous: Omnipaque 350 Contrast volume:structured data ml. COMPARISON: CR CHEST 2 VIEWS PA,LAT from 10/06/[address] neck w from 11/29/2018 CR XR RIBS ONLY LT from 12/28/2024 FINDINGS: Pulmonary parenchyma: No consolidation. No dominant measurable mass. Linear atelectasis at the poste rior right lung base. Tracheobronchial tree: No bronchiectasis or mucous plugging. Mediastinum and Anna: No dominant adenopathy or fluid collection. Pleura: No effusion. No pneumothorax. Heart: The heart is not dilated. No coronary artery calcifications are seen. Aorta: Thoracic aorta non-dilated. Mild atherosclerotic changes. Pulmonary arteries: Not enlarged. Upper abdomen: No acute findings. Bones: Degenerative changes in the upper thoracic spine. Mild anterior wedging and Schmorl's node at the superior endplate of T4. This appears old. No rib fractures are identified. The inferior m ost ribs are not included in the field of view. The Soft tissues: Unremarkable. IMPRESSION: No acute abnormality. RADIATION DOSE DELIVERED: 225.25mGy.cm Total DLP DATA REPOSITORY: All CT scans at this facility are submitted to the National Radiology Data Registry (NRDR) Dose Index Registry (DIR) with the [employer] ([employer]). RADIATION OPTIMIZATION: All CT scans at this facility use at least one of these dose optimization te chniques: automated exposure control; mA and/or kV adjustment per patient size (includes targeted exa ms where dose is matched to clinical indication); or iterative reconstruction.
--- NOTE | 2024-12-31 02:48 | DI.VRAD_ITS ---
PROCEDURE INFORMATION: Exam: CT Chest Without Contrast; Diagnostic Exam date and time: 12/31/2024 2:29 AM Age: 44 years old Clinical indication: Other: Left lower anterior rib pain, eval for FX TECHNIQUE: Imaging protocol: Diagnostic computed tomography of the chest without contrast. 3D rendering (Not supervised by radiologist): MIP and/or 3D reconstructed images were created by the technologist. Radiation optimization: All CT scans at this facility use at least one of these dose optimization techniques: automated exposure control; mA and/or kV adjustment per patient size (includes targeted exams where dose is matched to clinical indication); or iterative reconstruction. COMPARISON: CR XR RIBS ONLY LT 12/28/2024 7:47 AM FINDINGS: Thyroid: Normal-sized thyroid gland. Lungs: Platelike atelectasis on the right. No pulmonary consolidation. Pleural spaces: Trace pleural fluid on the right. No left-sided pleural effusion. No pneumothorax. Heart: Normal-sized heart. Lymph nodes: No pathologically enlarged mediastinal or hilar lymph nodes. No pathologically enlarged mediastinal or hilar lymph nodes. Vasculature: No thoracic aortic aneurysm. Kidneys: Kidneys only partially included in the field of view. 9 mm right renal cyst, image 176 of series 2. Bones/joints: No acute fracture seen among the bones of the chest. Lower posterior ribs partially excluded from view and incompletely evaluated. Superior endplate compression deformity at T4 with mild loss of central vertebral height and a Schmorl's node extending through the superior endplate, uncertain chronicity but suspected to be old. Small anterior osteophytes at several upper thoracic vertebral levels. Soft tissues: No gross soft tissue mass or fluid collection seen in the chest wall. IMPRESSION: No active disease is seen in the chest. Dictated and Authenticated by: Conor Sheets MD. Orderin Daniel Ramírez MD
[2024-12-31] MEDS: Bupivacaine 0.5% Pres-Free 30 ML VIAL (03:14)
== END 2024-12-31 03:21 | disposition home or self-care (01) ==
PROVIDERS: Emergency Provider Student in an Organized Health Care Education/Training Program; PCP Nurse Practitioner
DX: R07.81 Pleurodynia (principal); E78.5 Hyperlipidemia, unspecified; Z87.891 Personal history of nicotine dependence
CPT/HCPCS: 64450; 71250; 99285; 99284; J0665

== ENCOUNTER 2025-04-26 00:30 | Outpatient (CLI) | payer MEDICAID, SELFPAY ==
[2025-04-26 09:32] LABS: Calculated LDL 48 mg/dL (<100); Cholesterol 113 mg/dL (<200); HDL Cholesterol 54 mg/dL (>or=40); Triglyceride 58 mg/dL (<150)
== END 2025-04-26 00:31 | disposition home or self-care (01) ==
LOC: LBO 00:30
PROVIDERS: PCP Nurse Practitioner; Visit Provider Nurse Practitioner
DX: E78.2 Mixed hyperlipidemia (principal)
CPT/HCPCS: 36415; 80061

== ENCOUNTER 2025-06-20 11:54 | Outpatient (REF) | payer MEDICAID, SELFPAY ==
[2025-06-25 10:43] LABS: 2-OH-Ethyl-Flurazepam Negative ng/mL (Cutoff: 10); 7-NH-Clonazepam 272 ng/mL (Cutoff: 10); 7-NH-Flunitrazepam Negative ng/mL (Cutoff: 10); Alpha OH-Alprazolam Negative ng/mL (Cutoff: 10); Alpha-OH Midazolam Negative ng/mL (Cutoff: 10); Benzodiazepines Interpretation Positive.; Prazepam Negative ng/mL (Cutoff: 10); Zolpidem Carboxylic acid Negative ng/mL (Cutoff: 10)
== END 2025-06-20 11:55 | disposition home or self-care (01) ==
LOC: LBN 11:54
DX: F41.1 Generalized anxiety disorder (principal)
CPT/HCPCS: 80346

== ENCOUNTER 2025-07-25 11:19 | Outpatient (CLI) | payer MEDICAID, SELFPAY ==
--- NOTE | 2025-07-25 09:00 | DI.RAD_ITS ---
Exam(s) XR KNEE LT 4V AP,LAT,OTILIA,PAT EXAM: XR KNEE LT 4V AP,LAT,OTILIA,PAT CLINICAL HISTORY: LEFT KNEE PAIN. TECHNIQUE: 2D digital imaging was performed. COMPARISON: CR,XR XR KNEE RT 4V AP,LAT,OTILIA,PAT from 07/29/2023 FINDINGS: Four views No evidence of fracture. Small amount of increased joint fluid noted. There is no joint space narrowing. No osteochondral defects evident. No osteophytes. No chondrocalcinosis. IMPRESSION: No acute osseous findings in left knee. Small amount of increased joint fluid noted.. This may signify an internal derangement. DATA REPOSITORY: RADIATION DOSE DELIVERED:
== END 2025-07-25 11:20 | disposition home or self-care (01) ==
LOC: DIORS 11:19
PROVIDERS: Visit Provider Student in an Organized Health Care Education/Training Program
DX: M25.562 Pain in left knee (principal); M25.462 Effusion, left knee
CPT/HCPCS: 73564

== ENCOUNTER → 2025-08-28 00:18 | Outpatient (CLI) | payer MEDICAID, SELFPAY ==
--- NOTE | 2025-08-28 12:20 | DI.MRI_ITS ---
Exam(s) MR LOWER JOINT LT WO EXAM: MR LOWER JOINT LT WO CLINICAL HISTORY: PAIN M23.92 INTERNAL DERANGEMENT LT KNEE TECHNIQUE: Multiplanar multisequence MRI of the knee was performed. COMPARISON: MR MR LOWER JOINT RT WO from 09/08/2023 CR XR KNEE LT 4V AP,LAT,OTILIA,PAT from 07/25/2025 FINDINGS: EFFUSION: There is a small amount of increased joint fluid. There is no large joint effusion. There is no Hernandez cyst in the popliteal fossa. MARROW:There is no evidence of fracture, bone contusion, nor osteochondral defects.. There are no significant osseous lesions. PATELLOFEMORAL COMPARTMENT: The quadriceps tendon is intact. The patellar ligament is intact. There is no significant thinning of the retropatellar cartilage. No evidence of fissure nor significant chondral defect. No osteochondral defect at this level.There is no intraosseous signal to suggest recent patellar dislocation. There are no patellar retinacular tears. CRUCIATE LIGAMENTS: The anterior cruciate ligament is intact.The posterior cruciate ligament is intact. MEDIAL COMPARTMENT/MEDIAL MENISCUS: There are no tears of the medial meniscus evident.There is mild articular cartilage thinning over the lateral aspect of the main weight-bearing surface of the medial femoral condyle and there is very mild bone edema in the overlying outer 3rd of the medial femoral condyle... There are no large chondral defects, osteochondral defects, nor prominent bone marrow edema, nor osteophytes evident. MEDIAL COLLATERAL LIGAMENT: Intact LATERAL COMPARTMENT/LATERAL MENISCUS: There is no evidence of lateral meniscal tear.There are no chondral defects, osteochondral defects, subarticular marrow edema, nor osteophytes evident. ILIOTIBIAL BAND: Intact LATERAL COLLATERAL LIGAMENT COMPLEX: The fibular collateral ligament is intact. The biceps femoris tendon is intact.There is mild fluid in the popliteus tendon sheath. IMPRESSION: 1. No evidence of meniscal tears and no cruciate ligament tears. 2. There is mild fluid in the popliteus tendon sheath component of the lateral collateral ligament complex. However, there are no collateral ligament tears. The medial collateral ligament is also intact. 3. No evidence of significant chondromalacia patella 4. Mild thinning of the articular cartilage over the outer 3rd of the medial femoral condyle and very mild overlying bone edema in the outer 3rd of the medial condyle. There are no full-thickness chondral defects, osteochondral defects, subarticular fractures, nor marginal osteophytes. DATA REPOSITORY:
== END ==
PROVIDERS: Visit Provider Student in an Organized Health Care Education/Training Program
DX: M23.92 Unspecified internal derangement of left knee (principal); M24.142 Other articular cartilage disorders, left hand
CPT/HCPCS: 73721